=== PATIENT | male | born 1945 | race Caucasian/White ===

== ENCOUNTER 2021-08-30 08:35 | Emergency (ER) | payer MEDICARE, MEDICAID, SELFPAY ==
--- NOTE | ~2021-08-30 | US_ITS ---
EXAMINATION: US venous doppler LE EXAM DATE: 08/30/2021 10:00 INDICATION: Bilateral leg swelling. TECHNIQUE: Multiple grayscale, color flow and Doppler images of the lower extremity deep venous syste ms bilaterally were obtained and reviewed. There is no prior study for comparison. FINDINGS: Right side: The right common femoral, femoral and profunda veins demonstrate normal color flow, respi ratory variation, augmentation and compressibility. Compressibility, color flow confirmed within the right popliteal, posterior tibial, peroneal, and greater saphenous veins. Left side: The left common femoral, femoral and profunda veins demonstrate normal color flow, respira tory variation, augmentation and compressibility. Compressibility, color flow confirmed within the l eft popliteal, posterior tibial, peroneal, and greater saphenous veins. IMPRESSION: 1. No lower extremity deep venous thrombosis bilaterally. Reviewed, dictated and finalized at location A. T MARKETING MANAGER
[2021-08-30 08:45] VITALS: BP 126/61; PULSE 78; RESP 18; TEMP 36.6; O2SAT 97
[2021-08-30 09:39] LABS: Basophils Absolute Auto 0.1 K/mm3 (0.0-0.1); Basophils Percent Auto 0.9 % (0.2-1.2); Eosinophils Absolute Auto 0.7 K/mm3 (0-0.3); Eosinophils Percent Auto 12.5 % (0-4.4); Hematocrit 42.8 % (42.0-52.0); Immature Granulocyte Absolute 0.02 K/mm3 (0.00-0.031); Immature Granulocyte Percent A 0.4 % (0-0.5); Lymphocytes Absolute Auto 1.08 K/mm3 (0.9-3.2); Lymphocytes Percent Auto 19.9 % (18.3-44.2); Mean Corpuscular HGB Conc 32.7 g/dl (32-36); Mean Corpuscular Hemoglobin 30.8 pg (26-34); Mean Corpuscular Volume 94.3 fl (80-100); Monocytes Absolute Auto 0.5 K/mm3 (0.1-0.6); Monocytes Percent Auto 8.3 % (2.6-8.5); Neutrophils Absolute Auto 3.2 K/mm3 (1.3-6.7); Platelet Count Result 217 k/mm3 (150-375); Red Blood Count 4.54 M/mm3 (4.6-6.20); Red Cell Distribution Width 14.9 % (11.5-14.5); White Blood Count 5.4 K/mm3 (4.5-10.0)
[2021-08-30 09:52] LABS: Anion Gap 5 mmol/L (8-16); Blood Urea Nitrogen 17 mg/dL (9-20); Calcium 8.9 mg/dL (8.4-10.2); Carbon Dioxide 32 mmol/L (22-30); Chloride 102 mmol/L (98-107); Estimated CRCL calculation 63 ml/min; Estimated Glomerular Filt Rate > 60; Glucose 100 mg/dL (65-110); Sodium 139 mmol/L (137-145)
[2021-08-30 09:54] LABS: INR 2.1; Prothrombin Time 22.6 Seconds (11.1-14.7)
[2021-08-30 09:55] LABS: Partial Thromboplastin Time 33.7 SECONDS (22.3-36.8)
--- NOTE | 2021-08-30 10:27 | ED.GENADULT ---
HPI - General Adult General Chief complaint: Extremity Problem,Nontraumatic Stated complaint: Bilateral Leg Swelling Time Seen by Provider: 08/30/21 08:42 History of Present Illness HPI narrative: Patient is a 76-year-old male who presents ER with lower extremity edema. Ongoing for last month. Better at night when he puts his legs up. Has history of heart failure. He is on anticoagulation due to is a fibrillation. No chest pain/chest pressure/dyspnea. No hemoptysis. No history of DVT. He was supposed to have outpatient lab work performed today for a upcoming appointment with his PCP in 2 days. They also instructed him to obtain an ultrasound of his legs. Related Data Home Medications Medication Instructions Recorded Confirmed amiodarone 08/30/21 amlodipine 08/30/21 furosemide 08/30/21 gabapentin 08/30/21 pravastatin 08/30/21 umeclidinium [Incruse Ellipta] INHALATION 08/30/21 warfarin 08/30/21 Allergies Allergy/AdvReac Type Severity Reaction Status Date / Time No Known Allergies Allergy Verified 08/30/21 08:48 Review of Systems Review of Systems: All systems reviewed & are unremarkable except as noted in HPI and below Constitutional: Constitutional: Denies chills, Denies fever(s) and Denies weakness ENT: Denies nasal congestion and Denies sore throat Cardiovascular: Cardiovascular: Denies chest pain, Denies rapid heart rate and Denies radiating jaw, neck or arm pain Respiratory: Respiratory: Denies cough, Denies dyspnea and Denies wheezing Gastrointestinal: Gastrointestinal: Denies abdominal pain, Denies nausea and Denies vomiting Musculoskeletal: Musculoskeletal: Denies myalgias and Denies muscle cramps Comments: Leg swelling PMFSH Past Medical History Medical History (Updated 08/30/21 @ 10:33 by David Matute MD) Atrial fibrillation COPD (chronic obstructive pulmonary disease) Neuropathy Surgical History Surgical History (Updated 08/30/21 @ 10:31 by David Matute MD) S/P repair of hydrocele Family History Family History (Updated 03/05/14 @ 07:13 by DOCTOR UNKNOWN) Father Family history of heart disease in male family member before age 55 Social History Social History Smoking status: Never smoker Alcohol intake: current Exam Narrative: GENERAL: Well-appearing, well-nourished, and in no acute distress. HEAD: Normocephalic, atraumatic. ENT: Mucous membranes moist. CHEST: Clear to auscultation. No respiratory distress. HEART: Irregular regular rate and rhythm. Normal peripheral pulses. ABDOMEN: Soft, nontender, nondistended. EXTREMITIES: Normal range of motion. 1+ edema. Chronic venous stasis changes. SKIN: Warm, dry, no rash. NEURO: Alert and oriented x3. PSYCH: Normal mood and affect. Course Course Emergency Course: No evidence of DVT. Follow-up with PCP. Discharge home. Vital Signs Vital signs: Vital Signs Temperature 97.8 F 08/30/21 08:45 Pulse Rate 78 08/30/21 08:45 Respiratory Rate 18 08/30/21 08:45 Blood Pressure 126/61 08/30/21 08:45 Pulse Oximetry 97 08/30/21 08:45 Temperature 97.8 F 08/30/21 08:45 Pulse Rate 78 08/30/21 08:45 Respiratory Rate 18 08/30/21 08:45 Blood Pressure 126/61 08/30/21 08:45 Pulse Oximetry 97 08/30/21 08:45 Medical Decision Making Vital Signs Vital Signs: Vital Signs Temperature 97.8 F 08/30/21 08:45 Pulse Rate 78 08/30/21 08:45 Respiratory Rate 18 08/30/21 08:45 Blood Pressure 126/61 08/30/21 08:45 Pulse Oximetry 97 08/30/21 08:45 Temperature 97.8 F 08/30/21 08:45 Pulse Rate 78 08/30/21 08:45 Respiratory Rate 18 08/30/21 08:45 Blood Pressure 126/61 08/30/21 08:45 Pulse Oximetry 97 08/30/21 08:45 Lab Data Result diagrams: 08/30/21 09:32 08/30/21 09:32 Labs: Lab Results 08/30/21 08/30/21 08/30/21 Range/Units 09:32 09:32 09:32 WBC 5.4 (4.5-10.0) K/mm3 RBC 4.54 L (4.6-6.
== END 2021-08-30 10:48 | disposition home or self-care (01) ==
PROVIDERS: Emergency Provider Emergency Medicine
DX: R60.0 Localized edema (principal); I48.91 Unspecified atrial fibrillation; J44.9 Chronic obstructive pulmonary disease, unspecified; G62.9 Polyneuropathy, unspecified; Z79.01 Long term (current) use of anticoagulants
CPT/HCPCS: 36415; 80048; 85025; 85610; 85730; 93970; 99284

== ENCOUNTER 2021-10-03 09:32 | Emergency (ER) | payer MEDICARE, MEDICAID, SELFPAY ==
[2021-10-03 09:39] VITALS: BP 114/85; PULSE 84; RESP 22; TEMP 36.7; O2SAT 99
--- NOTE | 2021-10-03 09:45 | ED.GENADULT ---
HPI - General Adult General Chief complaint: Extremity Injury, Lower Stated complaint: leg pain Time Seen by Provider: 10/03/21 09:35 Source: patient History of Present Illness HPI narrative: 76-year-old male with hsx of neuropathy presenting to the emergency department for evaluation of left leg pain that has been bothering him for approximately the last 2 weeks. Patient describes left lateral leg pain that radiates down towards his knee. Patient denies any recent falls or injuries. Patient states he called his primary care physician was referred to the emergency department. Patient does take gabapentin for his neuropathy but states this does not help his pain. Patient denies any chest pain or shortness of breath. Related Data Home Medications Medication Instructions Recorded Confirmed amiodarone 08/30/21 amlodipine 08/30/21 furosemide 08/30/21 gabapentin 08/30/21 pravastatin 08/30/21 umeclidinium [Incruse Ellipta] INHALATION 08/30/21 warfarin 08/30/21 Allergies Allergy/AdvReac Type Severity Reaction Status Date / Time No Known Allergies Allergy Verified 10/03/21 09:45 Review of Systems Review of Systems: CONSTITUTIONAL: Denies fever, chills, or sweats. EYES: Denies visual changes, redness, or discharge. ENT: Denies rhinorrhea, congestion, sore throat, or otalgia. CARDIOVASCULAR: Denies chest pain, palpitations, or edema. RESPIRATORY: Denies cough or dyspnea. GASTROINTESTINAL: Denies abdominal pain, nausea, vomiting, or diarrhea. GENITOURINARY: Denies dysuria or hematuria. SKIN: Denies rash or itching. MUSCULOSKELETAL: Left back pain radiating down his left leg NEUROLOGIC: Denies headache, numbness, or weakness. [facility] Past Medical History Medical History (Updated 10/03/21 @ 11:58 by Carlito Osullivan MD) Atrial fibrillation COPD (chronic obstructive pulmonary disease) Neuropathy Surgical History Surgical History (Updated 08/30/21 @ 10:31 by David Matute MD) S/P repair of hydrocele Family History Family History (Updated 03/05/14 @ 07:13 by DOCTOR UNKNOWN) Father Family history of heart disease in male family member before age 55 Social History Social History Smoking status: Never smoker Alcohol intake: current Exam Narrative: APPEARANCE: Well appearing, no pain, no distress, well-nourished. HEAD: normocephalic, atraumatic. EYES: PERRLA/EOMI, conjunctivae clear. NOSE: Normal no drainage NECK: Supple. No adenopathy, no masses. RESPIRATORY: Airway patent, respirations nonlabored. Clear to auscultation bilaterally, no rales, rhonchi, wheezing. CARDIOVASCULAR: Regular rate and rhythm without murmurs rubs or gallops. ABDOMINAL: Soft, nontender, nondistended, normal bowel sounds MUSCULOSKELETAL: Moves all extremities. Strong pedal pulses. No calf tenderness to palpation. No significant erythema. Patient does have chronic changes to the skin of the lower extremities bilaterally. No concern for acute cellulitis. Leg pain induced with palpation of the left buttock NEURO: Alert. Cranial nerves II through XII intact. Grossly intact SKIN: Warm, dry. Normal Color Course Course Emergency Course: Patient did feel improved with treatment. No evidence of underlying infection. Symptoms are consistent with sciatica. Patient felt that his symptoms were improved with a dose of Dilaudid. Patient will be treated with additional narcotic pain medication at home. Patient does take gabapentin. Patient was encouraged to have close follow-up with his primary care physician. Vital Signs Vital signs: Vital Signs Temperature 98.0 F 10/03/21 09:39 Pulse Rate 84 10/03/21 09:39 Respiratory Rate 22 H 10/03/21 09:39 Blood Pressure 114/85 10/03/21 09:39 Pulse Oximetry 99 10/03/21 09:39 Temperature 98.0 F 10/03/21 09:39 Pulse Rate 70 10/03/21 12:56 Respiratory Rate 18 10/03/21 12:56 Blood Pressure 111/81 10/03/21 12:56 Pulse Oximetry 96 10/03/21 12:5
[2021-10-03] MEDS: HYDROmorphone HCL INJ (*CRX) 1 MG/ML SYR 0.5 MG IV PUSH ×2 (09:54→12:38)
[2021-10-03 10:04] LABS: Basophils Absolute Auto 0.1 K/mm3 (0.0-0.1); Basophils Percent Auto 0.7 % (0.2-1.2); Eosinophils Absolute Auto 0.6 K/mm3 (0-0.3); Eosinophils Percent Auto 9.1 % (0-4.4); Hematocrit 39.8 % (42.0-52.0); Hemoglobin 12.8 g/dL (14.0-18.0); Immature Granulocyte Absolute 0.02 K/mm3 (0.00-0.031); Immature Granulocyte Percent A 0.3 % (0-0.5); Lymphocytes Absolute Auto 1.57 K/mm3 (0.9-3.2); Lymphocytes Percent Auto 23.5 % (18.3-44.2); Mean Corpuscular HGB Conc 32.2 g/dl (32-36); Mean Corpuscular Hemoglobin 30.5 pg (26-34); Mean Corpuscular Volume 94.8 fl (80-100); Mean Platelet Volume 9.9 fl (7.4-10.4); Monocytes Absolute Auto 0.5 K/mm3 (0.1-0.6); Monocytes Percent Auto 6.9 % (2.6-8.5); Neutrophils Percent Auto 59.5 % (45.5-73.1); Platelet Count Result 265 k/mm3 (150-375); Red Cell Distribution Width 14.9 % (11.5-14.5); White Blood Count 6.7 K/mm3 (4.5-10.0)
[2021-10-03 10:17] LABS: Alanine Aminotransferase 14 U/L (4-50); Albumin Level 3.9 g/dL (3.5-5.1); Alkaline Phosphatase 67 U/L (38-126); Anion Gap 5 mmol/L (8-16); Aspartate Amino Transferase 26 U/L (17-59); Bilirubin,Total 0.9 mg/dL (0.2-1.3); Blood Urea Nitrogen 16 mg/dL (9-20); Calcium 8.4 mg/dL (8.4-10.2); Carbon Dioxide 31 mmol/L (22-30); Chloride 102 mmol/L (98-107); Estimated CRCL calculation 69 ml/min; Estimated Glomerular Filt Rate > 60; Glucose 107 mg/dL (65-110); Potassium 3.9 mmol/L (3.4-5.0); Sodium 138 mmol/L (137-145)
[2021-10-03 10:58] VITALS: BP 115/74; PULSE 64; RESP 15; O2SAT 97
[2021-10-03] MEDS: HYDROcodone/acetaminophen (*CRX) 5-325 MG TABLET 1 TAB PO (11:54)
--- NOTE | 2021-10-03 12:20 | PC.NURSE ---
PT REPORT PAIN INCREASING, ERP NOTIFIED
--- NOTE | 2021-10-03 12:39 | PCCCNOTE ---
Phone call received at patient request for transportation back to [facility]. Asked if there is anyone that can pick him up but he says no, he can only afford the bus which takes him way far out and it is difficult. Advised that this respiratory care faculty would call [facility] to see if they have a van or transport. Called to [facility] at [phone] left message with site director for a return call.
[2021-10-03 12:56] VITALS: BP 111/81; PULSE 70; RESP 18; O2SAT 96
== END 2021-10-03 13:15 ==
PROVIDERS: Emergency Provider Emergency Medicine
DX: M79.605 Pain in left leg (principal); I48.91 Unspecified atrial fibrillation; J44.9 Chronic obstructive pulmonary disease, unspecified; G62.9 Polyneuropathy, unspecified; Z79.01 Long term (current) use of anticoagulants
CPT/HCPCS: 36415; 80053; 85025; 96374; 96375; 99284; A9270; J1170

== ENCOUNTER 2021-10-10 08:31 | Emergency (ER) | payer MEDICARE, MEDICAID, SELFPAY ==
[2021-10-10 08:37] VITALS: BP 140/74; PULSE 87; RESP 15; TEMP 36.4; O2SAT 97
--- NOTE | 2021-10-10 09:16 | ED.BACK ---
HPI - Back Pain/Injury General Chief Complaint: Back Pain/Injury <Cecilia Butts PA-C - Last Filed: 10/10/21 18:43> Stated Complaint: sciatic nerve pain <Cecilia Butts PA-C - Last Filed: 10/10/21 18:43> Time Seen by Provider: 10/10/21 08:53 <NION Roberson Last Filed: 10/10/21 18:43> Source: patient <NINO Roberson Last Filed: 10/10/21 18:43> Mode of arrival: ambulatory <NINO Roberson Last Filed: 10/10/21 18:43> Limitations: no limitations <NINO Roberson Last Filed: 10/10/21 18:43> History of Present Illness HPI Narrative: Patient is a 76-year-old male who presents to the ED with report of left lower extremity pain. Patient reports this pain has been present for the past 3 weeks, begins in L buttock and radiates down LLE to his knee. He was seen at the ED last Sunday at which point his pain was consistent with left-sided sciatica. He was prescribed Raiford for his pain which has provided much relief over the past week. Patient is unable to see his PCP until of this week. He is requesting additional Raiford to get him by until he can see his doctor. Patient states the pain is worse with laying flat. He is able to ambulate still. Patient denies any constipation, bowel or bladder incontinence, saddle anesthesia, weakness, abdominal pain, fever, chills, CP, SOB, N/V, new falls or injuries. Patient does have a history of neuropathy and takes gabapentin for this. Patient is on warfarin and amiodarone due to his history of atrial fibrillation. He has his INR checked every 2 weeks and is scheduled to have this checked again . <Cecilia Butts PA-C - Last Filed: 10/10/21 18:43> Related Data Home Medications: Home Medications Medication Instructions Recorded Confirmed amiodarone 08/30/21 amlodipine 08/30/21 furosemide 08/30/21 gabapentin 08/30/21 pravastatin 08/30/21 umeclidinium [Incruse Ellipta] INHALATION 08/30/21 warfarin 08/30/21 <Cecilia Butts PA-C - Last Filed: 10/10/21 18:43> Allergies/Adverse Reactions: Allergies Allergy/AdvReac Type Severity Reaction Status Date / Time No Known Allergies Allergy Verified 10/10/21 08:36 <Cecilia Butts PA-C - Last Filed: 10/10/21 18:43> Review of Systems Review of Systems: CONSTITUTIONAL: Denies fever, chills, or sweats. CARDIOVASCULAR: Denies chest pain. RESPIRATORY: Denies dyspnea. GASTROINTESTINAL: Denies constipation, incontinence, abdominal pain, nausea, vomiting, or diarrhea. GENITOURINARY: Denies incontinence, dysuria or hematuria. SKIN: Denies rash or itching. MUSCULOSKELETAL: Reports L buttock/LLE pain. NEUROLOGIC: Denies numbness, tingling, or weakness. <Cecilia Butts PA-C - Last Filed: 10/10/21 18:43> All systems reviewed & are unremarkable except as noted in HPI and below <Cecilia Butts PA-C - Last Filed: 10/10/21 18:43> [facility] Past Medical History Medical History: Medical History Atrial fibrillation COPD (chronic obstructive pulmonary disease) Neuropathy <Cecilia Butts PA-C - Last Filed: 10/10/21 18:43> Surgical History Surgical History: Surgical History S/P repair of hydrocele <Cecilia Butts PA-C - Last Filed: 10/10/21 18:43> Family History Family History: Family History (Updated 03/05/14 @ 07:13 by DOCTOR UNKNOWN) Father Family history of heart disease in male family member before age 55 <Cecilia Butts PA-C - Last Filed: 10/10/21 18:43> Social History Social History: Social History Smoking status: Never smoker Alcohol intake: current <Cecilia Butts PA-C - Last Filed: 10/10/21 18:43> Exam Narrative: GENERAL: Well appearing, obese, non-toxic, in no acute distress. HEAD: Normocephalic, atraumatic. NECK: Supple. No adenopa
[2021-10-10] MEDS: HYDROcodone/acetaminophen (*CRX) 5-325 MG TABLET 1 TAB PO (09:50)
--- NOTE | 2021-10-10 10:48 | PC.NURSE ---
Spoke with PA about dilaudid order, verbal order to change medication admin to Im from IV
[2021-10-10] MEDS: HYDROmorphone HCL INJ (*CRX) 1 MG/ML SYR 0.5 MG IM (10:49)
[2021-10-10 11:30] VITALS: BP 138/78; PULSE 75; RESP 17; O2SAT 100
== END 2021-10-10 11:30 | disposition home or self-care (01) ==
PROVIDERS: Emergency Provider Emergency Medicine
DX: M54.32 Sciatica, left side (principal); I48.91 Unspecified atrial fibrillation; J44.9 Chronic obstructive pulmonary disease, unspecified; G62.9 Polyneuropathy, unspecified; Z79.01 Long term (current) use of anticoagulants; Z79.899 Other long term (current) drug therapy
CPT/HCPCS: 96372; 99283; A9270; J1170

== ENCOUNTER 2022-04-27 11:21 | Inpatient (IN) | payer MEDICARE, MEDICAID, SELFPAY ==
[2022-04-27] VITALS (59 sets, daily range): BP systolic 79–135; BP diastolic 50–91; PULSE 66–126; RESP 16–35; TEMP 36.9–37.7; O2SAT 88–97; BMI 38.1
--- NOTE | 2022-04-27 | ECHO_ITS ---
Patient Info Name: Martínez Martinez Age: 77 years : 1945 Gender: Male Ht: 67 in Wt: 229 lbs BSA: 2.26 m2 HR: 83 bpm BP: 94 / 69 mmHg Heart Rhythm: Atrial Fibrillation Exam Date: 04/27/2022 3:10 PM Exam Location: [facility] Patient Status: Inpatient Admit Date: 04/27/2022 Staff Ordering Physician: Elia Chatman MD Factory Hand: Lopez Todd RDCS, RT Attending Provider: Adrian Arias MD Referring Physician: Lurdes CANAS; Exam Type: CA echo doppler color flow Study Info Indications I48.1 - Persistent atrial fibrillation - COPD I50.9 - Heart failure, unspecified Complete two-dimensional, color flow and Doppler transthoracic echocardiogram is performed with contrast to opacify the left ventricle and to improve the deliniation of the left ventricle endocardial borders. Contrast/Agitated Saline Contrast/Ag. Saline: Definity Amount: 4.00 ml Administered By: Lopez Todd RDCS Existing IV Access: Yes IV Access Condition: patent with no signs of infiltration Summary 1. Technically challenging exam. Definity contrast used to improve visualization. 2. Mild left ventricular systolic dysfunction with estimated ejection fraction 40-45%. 3. Severe right ventricular enlargement with RV systolic dysfunction. 4. Biatrial dilation. 5. Tricuspid regurgitant velocity suggesting pulmonary artery pressures are severely elevated. 6. Atrial fibrillation. Left Ventricular Outflow Tract Name Value Normal LVOT 2D LVOT Diameter 2.1 cm LVOT Doppler LVOT Peak Gradient 2 mmHg LVOT Mean Gradient 1 mmHg LVOT VTI 11 cm LVOT VTI/AV VTI Ratio 0.7 LVOT Stroke Volume 40 ml LVOT CO 3.2 l/min LVOT CI 1.4 l/min/m2 Mitral Valve Name Value Normal MV Doppler MV Decel [place] 435 cm/s2 MV PHT 46 ms MV Area (PHT) 4.8 cm2 4.0-5.0 MV Diastolic Function MV E Peak Velocity 69 cm/s MV A Peak Velocity 32 cm/s MV E/A 2.2 MV Decel Time 158 ms MV Annular TDI MV E/e' (Septal) 11.4 <=8.0 MV E/e' (Lateral) 9.9 <=8.0 MV E/e' (Average) 10.7 Tricuspid Valve Name Value Normal
--- NOTE | ~2022-04-27 | XR_ITS ---
EXAMINATION: XR chest 1V portable DATE: 05/02/2022 05:40 INDICATION: Central line adjustment. TECHNIQUE: A single frontal view of the chest was obtained. COMPARISON: Chest single view 05/01/2022, chest CT 04/30/2022 FINDINGS: There are small right and moderate-sized left pleural effusions. There are airspace opaciti es in the mid and lower lung zones with a basilar predominance. No pneumothorax. Cardiomegaly is note d. The endotracheal tube tip is 1.8 cm above the juan m. The nasogastric tube tip is in the stomach. A left upper extremity peripherally inserted central venous catheter (PICC) is seen with tip in the s uperior vena cava. IMPRESSION: 1. PICC tip in the superior vena cava. 2. Stable small right and moderate-sized left pleural effusions. 3. Stable airspace opacities in the mid and lower lung zones with a basilar predominance, consistent with atelectasis versus pneumonia. 4. Cardiomegaly. Reviewed, dictated and finalized at location A. IMPRESSION: 1. PICC tip in the superior vena cava. 2. Stable small right and moderate-sized left pleural effusions. 3. Stable airspace opacities in the mid and lower lung zones with a basilar pre dominance, consistent with atelectasis versus pneumonia. 4. Cardiomegaly.
--- NOTE | ~2022-04-27 | XR_ITS ---
EXAMINATION: XR chest 1V portable DATE: 05/05/2022 05:57 INDICATION: Acute respiratory failure TECHNIQUE: frontal view of the chest was obtained. COMPARISON: Chest radiograph dated 05/04/2022 FINDINGS: No significant change in opacities in bilateral mid and lower lung zones which includes small bilater al pleural effusions. No pneumothorax. Cardiomegaly. IMPRESSION: 1. Unchanged small bilateral pleural effusions with associated atelectasis and/or pneumonia. 2. Cardiomegaly. Reviewed, dictated and finalized at location A. IMPRESSION: 1. Unchanged small bilateral pleural effusions with associated atelectasis and/ or pneumonia. 2. Cardiomegaly.
--- NOTE | ~2022-04-27 | XR_ITS ---
XR chest 1V portable DATE: 05/12/2022 19:11 INDICATION: Sudden decrease in oxygenation TECHNIQUE: Portable AP chest on 05/2022 at 1907 hours COMPARISON: 05/2022 portable AP chest at 0517 hours FINDINGS: ET tube in satisfactory position 3.2 cm above juan m. NG tube is noted in the stomach. Left upper extremity PIC catheter tip overlies superior vena cava. Cardiomegaly. Pulmonary vascular congestion and redistribution. There are extensive bilateral infiltr ates which are more prominent centrally and in the lower lung zones, increased in severity since martina ier today at 0517 hours. Prominent minor fissure consistent with subpleural edema. Probable bilateral mild pleural effusions. No pneumothorax. Diffuse osteopenia. IMPRESSION: Cardiomegaly, pulmonary vascular congestion, bilateral predominantly central and lower rohan ng zone infiltrates, pleural effusions, also minor fissure, consistent with congestive heart failure, pulmonary edema, increased in severity since this morning Reviewed, dictated and finalized at location A. IMPRESSION: Cardiomegaly, pulmonary vascular congestion, bilateral predominantl y central and lower lung zone infiltrates, pleural effusions, also minor fissur e, consistent with congestive heart failure, pulmonary edema, increased in linda rity since this morning
--- NOTE | ~2022-04-27 | XR_ITS ---
EXAMINATION: XR chest 1V portable DATE: 05/04/2022 05:35 INDICATION: Acute respiratory failure TECHNIQUE: frontal view of the chest was obtained. COMPARISON: Chest radiograph dated 05/03/2022 FINDINGS: Endotracheal tube tip 4.0 cm above the juan m. Nasogastric tube tip in proximal side port in the body of the stomach. Left upper extremity peripherally inserted central venous catheter (PICC) tip at th e mid superior vena cava. Basilar predominant hazy airspace opacities in the bilateral mid and lower lung zones consistent with posterior layering small bilateral pleural effusions. Dense retrocardiac consolidation at the left l ower lung zone. No pneumothorax. Cardiomegaly. IMPRESSION: 1. Retrocardiac consolidation at the left lower lung zone which could represent atelectasis or pneumo mily. 2. Posterior layering small bilateral pleural effusions. 3. Cardiomegaly. Reviewed, dictated and finalized at location A. IMPRESSION: 1. Retrocardiac consolidation at the left lower lung zone which could represent atelectasis or pneumonia. 2. Posterior layering small bilateral pleural effusions. 3. Cardiomegaly.
--- NOTE | ~2022-04-27 | XR_ITS ---
EXAMINATION: XR chest 1V portable DATE: 05/10/2022 05:45 INDICATION: Respiratory failure. TECHNIQUE: A single frontal view of the chest was obtained. COMPARISON: Chest single view 05/09/2022, chest CT 05/08/2022 FINDINGS: There are small pleural effusions. There are airspace opacities in all right lung zones and left mid and lower lung zones. No pneumothorax. Cardiomegaly is noted. The endotracheal tube tip is 1.9 cm above the juan m. A left upper extremity peripherally inserted central venous catheter (PICC) is seen with tip in the superior vena cava. The nasogastric tube tip is beyond the inferior margin of the radiograph, but at least to the stomach. IMPRESSION: 1. Stable small pleural effusions. 2. Stable airspace opacities in right lung and left mid and lower lung zones, consistent with atelect asis versus pneumonia. 3. Cardiomegaly. Reviewed, dictated and finalized at location A. IMPRESSION: 1. Stable small pleural effusions. 2. Stable airspace opacities in right lung and left mid and lower lung zones, c onsistent with atelectasis versus pneumonia. 3. Cardiomegaly.
--- NOTE | ~2022-04-27 | XR_ITS ---
XR chest 1V portable DATE: 05/13/2022 06:27 INDICATION: Respiratory failure TECHNIQUE: Portable AP chest on 05/13/2022 at 0517 hours COMPARISON: 05/2022 portable AP chest at 1907 hours FINDINGS: ET tube tip is 5.8 cm above juan m; ideal range is 2 out of 5 cm. NG tube is in gastric fundus. Left upper extremity PIC catheter tip overlies superior vena cava. Prominent left retrocardiac increased density consistent with left lower lobe atelectasis and/or cons olidation. There is patchy infiltrate or atelectasis in the right lower lung. Cardiac megaly and pulmonary vascular redistribution. Small pleural effusions are suggested. Diffuse osteopenia. Dextroscoliosis and degenerative spurring of the thoracic spine. IMPRESSION: Persistent prominent left lower lobe atelectasis and/or consolidation Diminished congestive changes and right lung infiltrates since 05/2022 Reviewed, dictated and finalized at location A. IMPRESSION: Persistent prominent left lower lobe atelectasis and/or consolidati on Diminished congestive changes and right lung infiltrates since 05/2022
--- NOTE | ~2022-04-27 | CT_ITS ---
EXAMINATION: CT chest abdomen pelvis wo con DATE: 05/08/2022 08:58 INDICATION: Fever. Sepsis. Hemoptysis. TECHNIQUE: Computed tomography (CT) of the chest, abdomen, and pelvis was performed without intraveno us contrast. Automated exposure control and iterative reconstruction technique were employed. The dos e-length product was 1881.87 mGy-cm. COMPARISON: Chest CT 04/30/2022 FINDINGS: CHEST CT: There are small pleural effusions. There is dependent atelectasis bilaterally. A calcified right lung nodule is consistent with old granulomatous disease. Cardiomegaly is noted. No pericardial effusion. The endotracheal tube tip is in expected position. A left upper extremity peripherally inserted cent ral venous catheter (PICC) is seen with tip in the superior vena cava. There is mild thoracic spondyl osis. ABDOMEN/PELVIS CT: The liver and spleen are normal. There is contrast in the gallbladder, which is normal in size. The p ancreas, adrenal glands, and left kidney are normal. There are cysts in right kidney measuring up to 11 mm. There is a left inguinal hernia containing fat. The bladder is decompressed by a Nichole cathete r. The prostate is moderately enlarged. There is diverticulosis of the colon without evidence of dive rticulitis. Ascending, transverse, and descending colon are distended. The sigmoid colon is small in caliber, which may or may not be transient. The appendix is not visualized. There is a small volume o f ascites. The nasogastric tube tip is in the stomach. There are no pathologically enlarged lymph nod es. Body wall edema is noted. There is severe lumbar spondylosis. IMPRESSION: 1. Distention of the ascending, transverse, and descending colon, which may be secondary to adynamic ileus or sigmoid colon stricture. 2. Left inguinal hernia containing fat. 3. Small pleural effusions. Reviewed, dictated and finalized at location A.
--- NOTE | ~2022-04-27 | XR_ITS ---
XR chest 1V portable 05/06/2022 05:46 Indication: Acute respiratory failure Procedure: AP portable chest Comparison: Comparison to multiple prior studies sequentially, with oldest reviewed study dated 04/09. Findings: Endotracheal tube tip 3.9 cm above the juan m. Tip of the NG tube not visualized, likely in the stomach. Diffuse bilateral airspace disease unchanged. Small pleural effusions. No pneumothorax. Cardiomegaly. Impression: 1: Diffuse bilateral airspace disease unchanged, edema versus pneumonia. Reviewed, dictated and finalized at location A. Impression: 1: Diffuse bilateral airspace disease unchanged, edema versus pneumonia.
--- NOTE | ~2022-04-27 | CT_ITS ---
EXAMINATION: CTA chest PE protocol DATE: 05/01/2022 09:52 CDT INDICATION: Hypoxemia. Right heart failure. Hypotension. TECHNIQUE: Computed tomographic angiography (CTA) of the chest was performed with 100 mL Omnipaque-35 0 intravenous contrast. The dose-length product was 917.08 mGy-cm. Maximum intensity projection 3D-re constructions of the aorta and other arteries were constructed by the technologist on a separate work station. COMPARISON: None. FINDINGS: There is mediastinal lymphadenopathy. Small pleural effusions. Cardiomegaly. Study is techn ically adequate without evidence for pulmonary embolism. No endobronchial lesions. There is bilateral dependent airspace consolidation which may represent atelectasis and/or pneumonia. There is an endot rachele tube present just above the juan m. There is emphysema. No pneumothorax. Moderate thoracic sp ondylosis. There is mild dextroscoliosis. IMPRESSION: 1. Bilateral dependent airspace consolidation which may represent atelectasis and/or pneumonia. 2: No evidence for pulmonary embolism. 3: Small pleural effusions. 4: Cardiomegaly. 5: Mediastinal lymphadenopathy, likely reactive. Reviewed, dictated and finalized at location B. IMPRESSION: 1. Bilateral dependent airspace consolidation which may represent atelectasis a nd/or pneumonia. 2: No evidence for pulmonary embolism. 3: Small pleural effusions. 4: Cardiomegaly. 5: Mediastinal lymphadenopathy, likely reactive.
--- NOTE | ~2022-04-27 | XR_ITS ---
EXAMINATION: XR chest 1V portable DATE: 05/16/2022 06:15 INDICATION: Respiratory failure TECHNIQUE: frontal view of the chest was obtained. COMPARISON: Chest radiograph dated 05/15/2022 FINDINGS: Endotracheal tube tip 4.3 cm above the juan m. Nasogastric tube coiled in the stomach. Left upper ext remity peripherally inserted central venous catheter (PICC) tip at the cephalad superior vena cava. Slight interval increase in opacities in the left mid to lower lung zone and at the right lung base w ith blunting at costophrenic angles consistent with small right and [id number] left pleural ef fusions and associated atelectasis and/or pneumonia. No pneumothorax. Cardiomegaly. IMPRESSION: 1. Slight interval progression in small right and [id number] left pleural effusions with assoc iated atelectasis and/or pneumonia. 2. Cardiomegaly. Reviewed, dictated and finalized at location A. TENING MACHINE OPERATOR IMPRESSION: 1. Slight interval progression in small right and [id number]-[id number] left pleura l effusions with associated atelectasis and/or pneumonia. 2. Cardiomegaly.
--- NOTE | ~2022-04-27 | XR_ITS ---
EXAMINATION: XR chest 1V portable DATE: 04/30/2022 05:36 INDICATION: Respiratory failure TECHNIQUE: None. COMPARISON: 04/29/2022 FINDINGS: Endotracheal tube tip 2.2 cm above the juan m. Nasogastric tube tip in the stomach. Gradient of hazy basilar predominant opacities in the right lower and left mid to lower lung zones wh ich appear slightly decreased consistent with improving small bilateral pleural effusions. More dense retrocardiac consolidation at the left lower lung zone which could represent associated atelectasis or pneumonia. No pulmonary edema or pneumothorax. Cardiomegaly. IMPRESSION: 1. Slight decrease in small bilateral pleural effusions with associated left basilar atelectasis and/ or pneumonia. 2. Cardiomegaly. Reviewed, dictated and finalized at location A. IMPRESSION: 1. Slight decrease in small bilateral pleural effusions with associated left ba silar atelectasis and/or pneumonia. 2. Cardiomegaly.
--- NOTE | ~2022-04-27 | XR_ITS ---
EXAMINATION: XR chest 1V portable INDICATION: Shortness of breath and hemoptysis TECHNIQUE: Portable AP chest at 1141 hours COMPARISON: None available FINDINGS: There are patchy opacities throughout the lungs. No definite pleural effusion or pneumothor ax. The costophrenic angles are excluded from the examination. Cardiomegaly is noted. IMPRESSION: 1. Diffuse opacities throughout the lungs, consistent with pneumonia versus atelectasis versus pulmon sujata edema. Reviewed, dictated and finalized at location B. IMPRESSION: 1. Diffuse opacities throughout the lungs, consistent with pneumonia versus ate lectasis versus pulmonary edema.
--- NOTE | ~2022-04-27 | XR_ITS ---
EXAMINATION: XR chest 1V portable DATE: 05/01/2022 05:50 INDICATION: Respiratory failure TECHNIQUE: frontal view of the chest was obtained. COMPARISON: Chest radiograph dated 04/30/2022 FINDINGS: Endotracheal tube tip 2.3 cm above the juan m. Nasogastric tube extends into the stomach with distal tip collimated beyond the inferior margin of the [id number]. Increase in the gradient of basilar predominant hazy airspace opacities in the bilateral mid and lowe r lung zones consistent with bilateral posterior layering small to moderate-sized pleural effusions. Retrocardiac consolidation in the left lower lung zone which could represent associated atelectasis o r pneumonia. The cardiomediastinal silhouette is normal. IMPRESSION: 1. Increasing small to moderate-sized bilateral pleural effusions with associated basilar atelectasis and/or pneumonia. Reviewed, dictated and finalized at location A. IMPRESSION: 1. Increasing small to moderate-sized bilateral pleural effusions with associat ed basilar atelectasis and/or pneumonia.
--- NOTE | ~2022-04-27 | XR_ITS ---
EXAMINATION: XR abdomen NG/feed tube rechec DATE: 05/11/2022 14:42 INDICATION: Nasogastric tube adjustment TECHNIQUE: A supine view of the abdomen and lower chest was obtained for evaluation of feeding tube placement. COMPARISON: 05/11/2022 at 2:22 PM FINDINGS: Nasogastric tube tip in proximal side port in the body of the stomach. Endotracheal tube tip 5.6 cm a joy the juan m. Left upper extremity peripherally inserted central venous catheter (PICC) tip at th e cephalad superior vena cava. Dense retrocardiac consolidation the left mid to lower lung zone consi stent with small left pleural effusion and associated atelectasis or pneumonia. There is also a very small right pleural effusion. Cardiomegaly. IMPRESSION: 1. Nasogastric tube in stomach. 2. Endotracheal tube 5.6 cm above the juan m. Consider advancement by 3 cm. 3. Opacities in the left mid to lower lung zone consistent with small pleural effusion and associated atelectasis or pneumonia. 4. Very small right pleural effusion. Reviewed, dictated and finalized at location B. IMPRESSION: 1. Nasogastric tube in stomach. 2. Endotracheal tube 5.6 cm above the juan m. Consider advancement by 3 cm. 3. Opacities in the left mid to lower lung zone consistent with small pleural e ffusion and associated atelectasis or pneumonia. 4. Very small right pleural effusion.
--- NOTE | ~2022-04-27 | XR_ITS ---
XR chest 1V portable 05/07/2022 05:47 Indication: Acute respiratory failure Procedure: AP portable chest Comparison: Comparison to multiple prior studies sequentially, with oldest reviewed study dated 04/09. Findings: Cardiomegaly. Small pleural effusions. Bibasilar airspace disease may represent atelectasis or pneumonia. Endotracheal tube tip 3.4 cm above the juan m. NG tube in the stomach. PICC line tip i n the SVC. Impression: 1: Bibasilar airspace disease may represent atelectasis or pneumonia. 2: Small pleural effusions. Reviewed, dictated and finalized at location A. Impression: 1: Bibasilar airspace disease may represent atelectasis or pneumonia. 2: Small pleural effusions.
--- NOTE | ~2022-04-27 | XR_ITS ---
EXAMINATION: XR chest 1V portable DATE: 05/01/2022 15:31 INDICATION: PICC line repositioning TECHNIQUE: frontal views of the chest were obtained following the initial and repeat slight withdrawa l of the left approximately PICC line. COMPARISON: Chest radiograph dated 05/01/2022 at 12:52 PM FINDINGS: Patient is rotated towards the left. Endotracheal tube tip 2.1 cm above the juan m. Nasogastric tube extends below the left hemidiaphragm with distal tip collimated off the study. On the initial image the distal tip of the left upper extremity peripherally inserted central venous catheter (PICC) monica nues to extend from the superior vena cava into short distance into the azygos vein. Subsequent image demonstrates withdrawal of the catheter within the distal tip now ankle more caudally within the cep halad superior vena cava. On both images there is a gradient of hazy basilar predominant airspace opacities in bilateral mid an d lower lung zones with obscuration of the diaphragm consistent with small to moderate-sized posterio r layering pleural effusions and associated basilar atelectasis and/or pneumonia. No pneumothorax. Ca rdiomegaly. Visualized bones and soft tissues are unremarkable. IMPRESSION: 1. Left PICC line has been withdrawn slightly with distal tip previously in the azygos vein, now in t he superior vena cava. 2. Unchanged small to moderate-sized bilateral pleural effusions with associated bibasilar atelectasi s and/or pneumonia. Reviewed, dictated and finalized at location A. IMPRESSION: 1. Left PICC line has been withdrawn slightly with distal tip previously in the azygos vein, now in the superior vena cava. 2. Unchanged small to moderate-sized bilateral pleural effusions with associate d bibasilar atelectasis and/or pneumonia.
--- NOTE | ~2022-04-27 | CT_ITS ---
EXAMINATION: CT sinus wo con DATE: 05/08/2022 08:57 INDICATION: Fever, sepsis, pneumonia, hemoptysis TECHNIQUE: Computed tomography (CT) of the paranasal sinuses was performed without contrast. Iterativ e reconstruction technique was employed. Exam dose: 337.11 mGy-cm total exam DLP. COMPARISON: None FINDINGS: There is leftward deviation of the nasal septum. The nasal turbinates are moderately promin ent relatively symmetric in size. Intralamellar cell of both middle nasal turbinates. The ostiomeatal units are patent bilaterally. The paranasal sinuses are normally developed and aerated. There is minimal mucoperiosteal thickening in the lower left maxillary sinus. The mastoid air cells are well-developed and aerated. ET and NG tubes are noted. IMPRESSION: Leftward deviation of nasal septum Intralamellar cell of middle nasal turbinates Minimal mucoperiosteal thickening inferior left maxillary sinus Reviewed, dictated and finalized at Location [facility]. Reviewed, dictated and finalized at location A.
--- NOTE | ~2022-04-27 | XR_ITS ---
EXAMINATION: XR abdomen obstructive series DATE: 05/10/2022 09:54 INDICATION: Abdominal distention TECHNIQUE: Frontal supine and upright views of the abdomen were obtained. COMPARISON: CT dated 05/08/2022 FINDINGS: Nasogastric tube tip in the body of the stomach. Persistent prominent gaseous distention of the trans verse colon. Gas within a few normal caliber loops of small bowel in the pelvis. No dilated gas-fille d loops of small bowel. No free intraperitoneal gas. Temperature probe in the bladder likely along a Nichole catheter. Prominent prostatic calcifications. Endotracheal tube tip 3.8 cm above the juan m. Dense consolidation in the left lower lung zone. IMPRESSION: 1. No free intraperitoneal gas or dilated gas-filled loops of small bowel to suggest obstruction. 2. Persistent prominent distention of portions of the colon which could be due to adynamic ileus, con stipation or sigmoid colon stricture. 3. Opacities in the bilateral lower lung zones, left greater than right, consistent with small pleura l effusions, atelectasis, pneumonia or some combination thereof. Reviewed, dictated and finalized at location B. IMPRESSION: 1. No free intraperitoneal gas or dilated gas-filled loops of small bowel to s uggest obstruction. 2. Persistent prominent distention of portions of the colon which could be due to adynamic ileus, constipation or sigmoid colon stricture. 3. Opacities in the bilateral lower lung zones, left greater than right, consis tent with small pleural effusions, atelectasis, pneumonia or some combination t hereof.
--- NOTE | ~2022-04-27 | XR_ITS ---
EXAMINATION: XR chest 1V portable DATE: 05/09/2022 05:53 INDICATION: Respiratory failure. TECHNIQUE: A single frontal view of the chest was obtained. COMPARISON: Chest one view 05/08/2022, chest CT 05/08/2022 FINDINGS: There are small pleural effusions. There are airspace opacities in the mid and lower lung z ones with a basilar predominance. No pneumothorax. Cardiomegaly is noted. The endotracheal tube tip i s 4.4 cm above the juan m. The nasogastric tube tip is beyond the inferior margin of the radiograph, but at least to the stomach. A left upper extremity peripherally inserted central venous catheter (PI CC) is seen with tip in the superior vena cava. IMPRESSION: 1. Stable small pleural effusions. 2. Stable airspace opacities in the mid and lower lung zones, consistent with atelectasis or less lik chris pneumonia. 3. Cardiomegaly. Reviewed, dictated and finalized at location A. IMPRESSION: 1. Stable small pleural effusions. 2. Stable airspace opacities in the mid and lower lung zones, consistent with a telectasis or less likely pneumonia. 3. Cardiomegaly.
--- NOTE | ~2022-04-27 | CT_ITS ---
EXAMINATION: CT chest abdomen pelvis wo con DATE: 05/11/2022 11:40 INDICATION: Abdominal distention. Pneumonia. TECHNIQUE: Computed tomography (CT) of the chest, abdomen, and pelvis was without intravenous contras t. Automated exposure control and iterative reconstruction technique were employed. The dose-length p roduct was 1869.29 mGy-cm. COMPARISON: 05/08/2022 FINDINGS: CHEST CT: Endotracheal tube tip 4.5 cm above the juan m. Nasogastric tube tip in the stomach. Left upper extrem ity peripherally inserted central venous catheter (PICC) tip in the mid superior vena cava at the lev el of the juan m. Calcified right upper lobe nodule and a few small calcified nodules in the atelectatic portions of th e bilateral lower lobes along with small calcified right hilar lymph nodes, all consistent with old g ranulomatous disease. Small bilateral pleural effusions. 8 mm groundglass opacity in the right middle lobe which appears thin and linear on the sagittal and coronal projections consistent with discoid a telectasis. No definitive pneumonia appreciated although this could not be excluded in the atelectati c portions of the bilateral lower lobes. Cardiomegaly. Atherosclerotic coronary artery calcification. No pericardial effusion. No pathologically enlarged thoracic lymphadenopathy. Mild thoracic spondylo sis with bridging osteophytes at multiple levels consistent with diffuse idiopathic skeletal hyperost osis (DISH). ABDOMEN/PELVIS CT: Again seen is vicariously excreted contrast in the otherwise normal-appearing gallbladder. Small cyst at the caudal tip of the right hepatic lobe. Spleen, left kidney and bilateral adrenal glands are no rmal. Right renal cyst. Mild to moderate fatty atrophy of the pancreas. Again seen is distention of t he ascending and transverse colon which tapers to normal caliber in the descending colon with moderat e amount of stool scattered throughout the more distal sigmoid colon. No discrete transition point or evident obstructing mass or stricture. There is mild colonic diverticulosis with a sigmoid predomina nce. There is no adjacent inflammatory change to suggest diverticulitis. Small bowel is normal in ca liber with no obstruction. Small to moderate amount of ascites scattered throughout the abdomen and p jeovany. Small amount of ascites along with fat extends into a moderate-sized direct left inguinal elin ia. Prostatomegaly with left-sided predominant prostatic calcifications. Nichole catheter within the no rmal bladder. No abscess or free intraperitoneal gas. No pathologically enlarged abdominal or pelvic lymphadenopathy. Severe lumbar spondylosis. IMPRESSION: 1. Small bilateral pleural effusions with dependent compressive atelectasis in the bilateral lower lo bes. No pneumonia appreciated although superimposed pneumonia cannot be excluded in the atelectatic p ortions of the lower lobes. 2. Cardiomegaly. 3. Small to moderate amount of ascites scattered throughout the abdomen and pelvis. 4. Persistent distention of the ascending and transverse colon without evident transition point or ob structing mass most likely related to ileus. 5. Small to moderate amount of ascites in the abdomen and pelvis including extension of some ascites along with fat pad moderate-sized direct left inguinal hernia. Reviewed, dictated and finalized at location B. IMPRESSION: 1. Small bilateral pleural effusions with dependent compressive atelectasis in the bilateral lower lobes. No pneumonia appreciated although superimposed pneum onia cannot be excluded in the atelectatic portions of the lower lobes. 2. Cardiomegaly. 3. Small to moderate amount of ascites scattered throughout the abdomen and pel vis. 4. Persistent distention of the ascending and transverse colon wit
--- NOTE | ~2022-04-27 | XR_ITS ---
EXAMINATION: XR chest 1V portable DATE: 05/11/2022 06:16 INDICATION: Respiratory failure. TECHNIQUE: A single frontal view of the chest was obtained. COMPARISON: Chest single view 05/10/2022 FINDINGS: There are airspace opacities in the mid and lower lung zones. There are small pleural effus ions. No pneumothorax. Cardiomegaly is noted. The endotracheal tube tip is 4.2 cm above the juan m. T he nasogastric tube is not well visualized below the diaphragm. A left upper extremity peripherally i nserted central venous catheter (PICC) is seen with tip in the superior vena cava. IMPRESSION: 1. Stable airspace opacities in the mid and lower lung zones, left worse than right, consistent with atelectasis versus pneumonia. 2. Stable small pleural effusions. 3. Cardiomegaly. Reviewed, dictated and finalized at location A. IMPRESSION: 1. Stable airspace opacities in the mid and lower lung zones, left worse than r ight, consistent with atelectasis versus pneumonia. 2. Stable small pleural effusions. 3. Cardiomegaly.
--- NOTE | ~2022-04-27 | XR_ITS ---
XR chest 1V portable DATE: 05/14/2022 06:50 INDICATION: Respiratory failure TECHNIQUE: Portable AP chest on 05/14/2022 at 0517 hours COMPARISON: Portable AP chest on 05/13/2022 at 0517 hours FINDINGS: Cardiomegaly. Pulmonary vascular congestion and redistribution. Bilateral prominent lower l janine infiltrates and/or atelectasis, stable on the left, increased on the right since 05/13. Probable m ild pleural effusions. No pneumothorax. ET tube is approximately 6 cm above juan m; ideal range is 2-5 cm. A nasogastric tube is noted in the stomach. Left upper extremity PIC catheter tip overlies superior vena cava. IMPRESSION: Cardiac megaly, pulmonary vascular congestion, bilateral infiltrates, increased on the ri ght since 05/13/2022 Reviewed, dictated and finalized at location A. OPERATIONS LEADER IMPRESSION: Cardiac megaly, pulmonary vascular congestion, bilateral infiltrate s, increased on the right since 05/13/2022
--- NOTE | ~2022-04-27 | XR_ITS ---
EXAMINATION: XR chest 1V portable DATE: 04/28/2022 05:34 INDICATION: Respiratory failure TECHNIQUE: frontal view of the chest was obtained. COMPARISON: Chest radiograph dated 04/27/2022 FINDINGS: Endotracheal tube tip 1.0 cm above the juan m. Nasogastric tube in the stomach. Hazy opacities in the left mid and right lower lung zones with more dense retrocardiac consolidation the left lower lung zone. No pneumothorax. Cardiomegaly. IMPRESSION: 1. Opacities in the left mid and bilateral lower lung zones likely representing small bilateral pleur al effusions with associated atelectasis and/or pneumonia. 2. Cardiomegaly. Reviewed, dictated and finalized at location A. IMPRESSION: 1. Opacities in the left mid and bilateral lower lung zones likely representing small bilateral pleural effusions with associated atelectasis and/or pneumonia . 2. Cardiomegaly.
--- NOTE | ~2022-04-27 | XR_ITS ---
EXAMINATION: XR abdomen NG/feed tube insert DATE: 05/11/2022 14:29 INDICATION: Orogastric tube placement. TECHNIQUE: A supine view of the abdomen on 2 radiographs was obtained. COMPARISON: Abdomen radiographs 05/10/2022 FINDINGS: The nasogastric tube is coiled in the pharynx. The endotracheal tube tip is 4.7 cm above th e juan m. A left upper extremity peripherally inserted central venous catheter (PICC) is seen with ti p in the superior vena cava. There are airspace opacities in right lower lung zone and left mid and l ower lung zones. IMPRESSION: 1. Nasogastric tube coiled in the pharynx. 2. Airspace opacities in right lower lung zone and left mid and lower lung zones, consistent with ate lectasis versus pneumonia. Reviewed, dictated and finalized at location A. IMPRESSION: 1. Nasogastric tube coiled in the pharynx. 2. Airspace opacities in right lower lung zone and left mid and lower lung zone s, consistent with atelectasis versus pneumonia.
--- NOTE | ~2022-04-27 | XR_ITS ---
EXAMINATION: XR chest ET placement DATE: 04/27/2022 20:40 INDICATION: Endotracheal tube adjustment. TECHNIQUE: A single frontal view of the chest was obtained. COMPARISON: Chest single view at 7:34 PM FINDINGS: There are airspace opacities in right lower lung zone. There are airspace opacities in all left lung zones with a perihilar and basilar predominance. No pleural effusion or pneumothorax. Cardi omegaly is noted. The endotracheal tube tip is 2.5 cm above the juan m. The nasogastric tube tip is i n the stomach. IMPRESSION: 1. Stable airspace opacities in right lower lung zone and all left lung zones, consistent with pulmon sujata edema versus pneumonia. 2. Cardiomegaly. Reviewed, dictated and finalized at location A. IMPRESSION: 1. Stable airspace opacities in right lower lung zone and all left lung zones, consistent with pulmonary edema versus pneumonia. 2. Cardiomegaly.
--- NOTE | ~2022-04-27 | XR_ITS ---
EXAMINATION: XR chest 1V portable DATE: 05/15/2022 05:58 INDICATION: Respiratory failure TECHNIQUE: frontal view of the chest was obtained. COMPARISON: Chest radiograph dated 05/14/2022 FINDINGS: Endotracheal tube tip 3.4 cm above the juan m. There is a gastric tube tip in the body of the stomach . Left upper extremity peripherally inserted central venous catheter (PICC) tip at the cephalad supe rior vena cava. Gradient of hazy airspace opacities in the mid to lower lung zones with improvement in the upper lung zones consistent with likely decrease in small bilateral posteriorly layering pleural effusions. Mor e dense opacities in the lower lung zones, left greater than right which could represent associated a telectasis and/or pneumonia. No pneumothorax. Cardiomegaly. IMPRESSION: 1. Decreasing small bilateral pleural effusions with persistent associated atelectasis and/or pneumon ia in the lower lung zones, left greater than right. 2. Cardiomegaly. Reviewed, dictated and finalized at location A. GAGE COORDINATOR IMPRESSION: 1. Decreasing small bilateral pleural effusions with persistent associated atel ectasis and/or pneumonia in the lower lung zones, left greater than right. 2. Cardiomegaly.
--- NOTE | ~2022-04-27 | XR_ITS ---
EXAMINATION: XR abdomen NG/feed tube insert DATE: 04/27/2022 19:39 INDICATION: Nasogastric tube placement. TECHNIQUE: A supine view of the abdomen was obtained. COMPARISON: None. FINDINGS: The lower abdomen is excluded. There are no dilated loops of bowel. The nasogastric tube ti p is in the stomach. IMPRESSION: 1. Nasogastric tube tip in the stomach. Reviewed, dictated and finalized at location A.
--- NOTE | ~2022-04-27 | XR_ITS ---
EXAMINATION: XR chest ET placement DATE: 05/11/2022 16:05 INDICATION: Endotracheal tube repositioning. TECHNIQUE: A single frontal view of the chest was obtained. COMPARISON: Chest single view at 5:09 AM, chest CT 05/11/2022 FINDINGS: There are airspace opacities in the mid and lower lung zones, left worse than right. There are small pleural effusions. No pneumothorax. Cardiomegaly is noted. The endotracheal tube tip is 2.7 cm above the juan m. A left upper extremity peripherally inserted central venous catheter (PICC) is seen with tip in the superior vena cava. The nasogastric tube tip is beyond the inferior margin of th e radiograph, but at least to the stomach. IMPRESSION: 1. Stable airspace opacities in the mid and lower lung zones, left worse than right, consistent with atelectasis or less likely pneumonia. 2. Stable small pleural effusions. 3. Cardiomegaly. Reviewed, dictated and finalized at location A. IMPRESSION: 1. Stable airspace opacities in the mid and lower lung zones, left worse than r ight, consistent with atelectasis or less likely pneumonia. 2. Stable small pleural effusions. 3. Cardiomegaly.
--- NOTE | ~2022-04-27 | XR_ITS ---
EXAMINATION: XR chest 1V portable DATE: 05/03/2022 05:08 INDICATION: Acute respiratory failure TECHNIQUE: frontal view of the chest was obtained. COMPARISON: Chest radiograph dated 05/02/2022 FINDINGS: Endotracheal tube tip 5.7 cm above the juan m. Nasogastric tube extends below the left hemidiaphragm with distal tip collimated off the study. Left upper extremity peripherally inserted central venous catheter (PICC) tip at the mid superior vena cava. No significant interval change in opacities in bilateral mid to lower lung zones which include small bilateral pleural effusions. No pneumothorax. Cardiomegaly. Visualized bones and soft tissues are unr emarkable. IMPRESSION: 1. Unchanged small bilateral pleural effusions with associated bibasilar atelectasis and/or pneumonia . 2. Cardiomegaly. Reviewed, dictated and finalized at location A. IMPRESSION: 1. Unchanged small bilateral pleural effusions with associated bibasilar atelec tasis and/or pneumonia. 2. Cardiomegaly.
--- NOTE | ~2022-04-27 | XR_ITS ---
EXAMINATION: XR chest ET placement DATE: 04/27/2022 19:39 INDICATION: Intubation. TECHNIQUE: A single frontal view of the chest was obtained. COMPARISON: Chest single view 04/27/2022 FINDINGS: There are airspace opacities in right lower lung zone and all left lung zones. No pleural e ffusion or pneumothorax. Cardiomegaly is noted. The endotracheal tube tip is 10 mm above the juan m. The nasogastric tube tip is beyond the inferior margin of the radiograph, but at least to the stomach . IMPRESSION: 1. Worsened airspace opacities in right lower lung zone and in all left lung zones, consistent with p ulmonary edema versus pneumonia. 2. Cardiomegaly. Reviewed, dictated and finalized at location A. IMPRESSION: 1. Worsened airspace opacities in right lower lung zone and in all left lung zo david, consistent with pulmonary edema versus pneumonia. 2. Cardiomegaly.
--- NOTE | ~2022-04-27 | XR_ITS ---
EXAMINATION: XR chest 1V portable DATE: 05/08/2022 05:41 INDICATION: Respiratory failure. TECHNIQUE: A single frontal view of the chest was obtained on 2 radiographs. COMPARISON: Chest single view 05/07/2022, chest CT 04/30/2022 FINDINGS: There are small right and moderate-sized left pleural effusions. There are airspace opaciti es at the lung bases. No pneumothorax. Cardiomegaly is noted. The endotracheal tube tip is 3.8 cm abo ve the juan m. The nasogastric tube tip is in the stomach. IMPRESSION: 1. Stable small right and moderate-sized left pleural effusions. 2. Stable airspace opacities at the lung bases, consistent with atelectasis or less likely pneumonia. 3. Cardiomegaly. Reviewed, dictated and finalized at location A.
--- NOTE | ~2022-04-27 | XR_ITS ---
EXAMINATION: XR chest 1V portable INDICATION: Respiratory failure TECHNIQUE: Portable AP chest at 0509 hours COMPARISON: 04/28/2022 FINDINGS: The endotracheal tube ends approximately 3.1 cm above the juan m. The nasogastric tube is f ollowed as far as the stomach. Its tip is beyond the inferior margin of the radiograph. There are sma ll pleural effusions. Minimal airspace opacities are present in the mid and lower lung zones. Cardiom egaly is noted. IMPRESSION: 1. Small pleural effusions with associated bibasilar atelectasis versus pneumonia. 2. Cardiomegaly. Reviewed, dictated and finalized at location A. IMPRESSION: 1. Small pleural effusions with associated bibasilar atelectasis versus pneumon ia. 2. Cardiomegaly.
--- NOTE | ~2022-04-27 | US_ITS ---
EXAMINATION: US venous doppler [facility] DATE: 05/11/2022 11:12 INDICATION: Shortness of breath TECHNIQUE: Grayscale ultrasound images without and with compression and Doppler ultrasound images of the bilateral lower extremity veins were obtained. COMPARISON: None. FINDINGS: The visualized portions of right common femoral vein, profunda (deep) femoral vein, femoral vein, pop liteal vein, posterior tibial veins, peroneal veins, gastrocnemius vein and greater saphenous vein ou tflow are patent. The visualized portions of left common femoral vein, profunda femoral vein, femoral vein, popliteal v ein, posterior tibial veins, peroneal veins, gastrocnemius vein and greater saphenous vein outflow ar e patent. IMPRESSION: 1. No deep venous thrombosis in either lower limb. Reviewed, dictated and finalized at location B.
--- NOTE | ~2022-04-27 | XR_ITS ---
EXAMINATION: XR chest 1V portable DATE: 05/12/2022 05:53 INDICATION: Respiratory failure. TECHNIQUE: A single frontal view of the chest was obtained. COMPARISON: 05/11/2022, chest CT 05/11/2022 FINDINGS: There are small pleural effusions. There are airspace opacities in the mid and lower lung z ones. No pneumothorax. Cardiomegaly is noted. The endotracheal tube tip is 3.1 cm above the juan m. T he nasogastric tube tip is beyond the inferior margin of the radiograph, but at least to the stomach. A left upper extremity peripherally inserted central venous catheter (PICC) is seen with tip in the superior vena cava. IMPRESSION: 1. Stable airspace opacities in the mid and lower lung zones, consistent with atelectasis versus pneu monia. 2. Stable small pleural effusions. 3. Cardiomegaly. Reviewed, dictated and finalized at location A. IMPRESSION: 1. Stable airspace opacities in the mid and lower lung zones, consistent with a telectasis versus pneumonia. 2. Stable small pleural effusions. 3. Cardiomegaly.
--- NOTE | ~2022-04-27 | XR_ITS ---
EXAMINATION: XR chest PICC line DATE: 05/01/2022 13:06 INDICATION: PICC line placement TECHNIQUE: AP and lateral views of the chest were obtained. COMPARISON: Chest radiograph dated 05/01/2022 at 5:19 AM FINDINGS: Left upper extremity peripherally inserted central venous catheter (PICC) which extends into the supe rior vena cava there is an abrupt 90 degrees angulation of the distal tip suggesting it likely extend s into the azygos vein. Endotracheal tube tip 2.5 cm above the juan m.. Nasogastric tube tip in the body of the stomach. Gradient of hazy basilar predominant airspace opacities in the bilateral mid and lower lung zones con sistent with moderate sized bilateral pleural effusions with associated basilar atelectasis and/or pn eumonia. No pneumothorax. Mild cardiomegaly. IMPRESSION: 1. Left M the PICC line tip in the azygos vein. 2. Moderate-sized bilateral pleural effusions with bibasilar atelectasis and/or pneumonia. 3. Cardiomegaly. Reviewed, dictated and finalized at location A.
--- NOTE | 2022-04-27 11:27 | ECG_ITS ---
Measurements Intervals [place] Rate: 106 P: OR: 0 QRS: 122 QRSD: 107 T: 0 QT: 178 QTc: 237 Interpretive Statements SINUS TACHYCARDIA INDETERMINATE AXIS NONSPECIFIC ST & T-WAVE ABNORMALITY SIGNIFICANT ARTIFACT LIMITS INTERPRETATION ABNORMAL ECG NO PREVIOUS ECG AVAILABLE FOR COMPARISON Electronically Signed On 04-27-2022 14:59:03 CDT by Reginald Gibbons M.D.
--- NOTE | 2022-04-27 11:27 | ED.SOB ---
HPI - SOB/Dyspnea General Chief Complaint: Shortness of Breath/Dyspnea Stated Complaint: COUGHING UP BLOOD Time Seen by Provider: 04/27/22 11:26 Source: patient and EMS Mode of arrival: EMS Limitations: no limitations History of Present Illness HPI Narrative: 77 years old white male came by ambulance from assisting living complaining of coughing started last night, today spitting up blood. History of COPD, congestive heart failure and atrial fibrillation. Related Data Home Medications Medication Instructions Recorded Confirmed amiodarone 200 mg tablet 08/30/21 amlodipine 5 mg tablet 08/30/21 furosemide 20 mg tablet 08/30/21 gabapentin 300 mg capsule 08/30/21 pravastatin 40 mg tablet 08/30/21 umeclidinium 62.5 mcg/actuation inhalation 08/30/21 blister powder for inhalation (Incruse Ellipta) warfarin 4 mg tablet 08/30/21 albuterol sulfate 90 mcg/actuation 2 inh inhalation Q4-6H PRN 04/27/22 breath activated powder Shortness Of Breath inhaler,sensor Allergies Allergy/AdvReac Type Severity Reaction Status Date / Time No Known Allergies Allergy Verified 04/27/22 11:40 Review of Systems Review of Systems: All systems reviewed & are unremarkable except as noted in HPI and below PMFSH Past Medical History Medical History Atrial fibrillation COPD (chronic obstructive pulmonary disease) Neuropathy Surgical History Surgical History S/P repair of hydrocele Family History Family History Father Family history of heart disease in male family member before age 55 Social History Social History Smoking status: Never smoker Alcohol intake: current Exam Narrative: General appearance: Well-developed, well-nourished Skin: Normal color Head: Normocephalic, nontraumatic Eyes: Clear conjunctiva ENT: Oropharynx normal, ears normal, nose normal Neck: Supple, nontender Chest and respiratory: Airway patent, mild respiratory distress, persistent coughing producing bloody sputum Heart: Irregular irregularity, tachycardia Abdomen: Soft, nontender, no organomegaly, quiet bowel sounds Vascular: Normal peripheral pulses, normal capillary refill. Musculoskeletal: Normal range of motion, nontender back Neurologic: Alert and oriented ?3, MAP CLERK is normal as tested, no gross motor deficit Course Consultations Consultation #1: Dr. Ontiveros Date: 04/27/22 Time: 13:13 Consultation #2: Dr. Chatman Date: 04/27/22 Time: 13:13 Vital Signs Vital signs: Vital Signs Temperature 36.9 C 04/27/22 11:20 Pulse Rate 100 04/27/22 11:20 Respiratory Rate 32 H 04/27/22 11:20 Blood Pressure 103/67 04/27/22 11:20 Pulse Oximetry 92 04/27/22 11:20 Oxygen Delivery Non-Rebreather Mask 04/27/22 11:20 Oxygen Flow Rate 15 04/27/22 11:20 Temperature 36.9 C 04/27/22 11:20 Pulse Rate 126 H 04/27/22 13:07 Respiratory Rate 20 04/27/22 13:07 Blood Pressure 135/58 L 04/27/22 13:07 Pulse Oximetry 91 04/27/22 13:07 Oxygen Delivery High Flow Nasal Cannula 04/27/22 12:23 Oxygen Flow Rate 15 04/27/22 12:23 MDM - SOB/Dyspnea Differential Diagnosis Differential diagnosis: Likely acute exacerbation of chronic obstructive airways disease, congestive heart failure, community acquired pneumonia and other (Acute respiratory failure) Lab Data Result diagrams: 04/27/22 11:39 04/27/22 11:39 Labs: Lab Results 04/27/22 04/27/22 04/27/22 Range/Units 11:39 11:39 11:39 WBC
[2022-04-27] MEDS: ALBUTEROL SULFATE NEB 2.5 MG/3 ML INH 5 MG INHALATION ×2 (11:35→20:30)
[2022-04-27] MEDS: IPRATROPIUM BR 0.02% INH SOLN 0.5 MG/2.5 ML VIAL INHALATION ×2 (11:36→20:30)
[2022-04-27 11:53] LABS: Alveolar/Arterial O2 Gradient 47.7 mmHg; Base Excess ABG -2.9 mEq/l (+/-2.0); Fractional Inspired Oxygen 21 %; HCO3 ABG 22.6 mEq/l (22.0-26.0); Oxygen Content ABG 15.8 %vol (16.0-22.0); PCO2 ABG 41.9 mmHg (35.0-45.0); PO2 ABG 51.9 mmHg (80.0-100.0); PO2 FiO2 Ratio Arterial Blood 2.47 %; Total Hemoglobin 13.5 g/dL (12.0-18.0); pH ABG 7.349 (7.350-7.450)
[2022-04-27 11:53] LABS: Hematocrit 40.9 % (42.0-52.0); Hemoglobin 12.9 g/dL (14.0-18.0); Mean Corpuscular HGB Conc 31.5 g/dl (32-36); Mean Corpuscular Hemoglobin 29.7 pg (26-34); Mean Platelet Volume 10.1 fl (7.4-10.4); Platelet Count Result 244 k/mm3 (150-375); Red Blood Count 4.35 M/mm3 (4.6-6.20); Red Cell Distribution Width 15.8 % (11.5-14.5); White Blood Count 16.9 K/mm3 (4.5-10.0)
[2022-04-27 11:54] LABS: Modified Allen's Test Pass; Site Drawn LEFT BRACHIAL
[2022-04-27 11:56] LABS: Oxygen Saturation ABG 85.1 % (95.0-100.0); Oxyhemoglobin 83.3 % THb (90.0-100.0)
--- NOTE | 2022-04-27 12:02 | PC.NURSE ---
Patient restless in bed, having difficulty leaving non rebreather on. Patient continues to slide down into bed and states his legs are hurting him. DELIA quintero.
[2022-04-27 12:03] LABS: INR 2.8; Prothrombin Time 28.3 Seconds (11.1-14.7)
[2022-04-27 12:04] LABS: Partial Thromboplastin Time 45.5 SECONDS (22.3-36.8)
[2022-04-27] MEDS: methylPREDNISolone SOD SUCC 125 MG VIAL IV PUSH (12:09)
[2022-04-27] MEDS: MORPHINE SULFATE (*CRX) 2 MG/ML INJ IV PUSH (12:09)
[2022-04-27] MEDS: ONDANSETRON INJ 4 MG/2 ML VIAL IV PUSH (12:09)
[2022-04-27 12:10] LABS: Alanine Aminotransferase 33 U/L (6-50); Albumin Level 4.1 g/dL (3.5-5.1); Alkaline Phosphatase 66 U/L (38-126); Anion Gap 16 mmol/L (8-16); Aspartate Amino Transferase 47 U/L (17-59); Bilirubin,Total 1.8 mg/dL (0.2-1.3); Blood Urea Nitrogen 24 mg/dL (9-20); Calcium 8.1 mg/dL (8.4-10.2); Carbon Dioxide 28 mmol/L (22-30); Chloride 95 mmol/L (98-107); Estimated CRCL calculation 48 ml/min; Estimated Glomerular Filt Rate 53; Glucose 142 mg/dL (65-110); Magnesium 1.7 mg/dL (1.6-2.3); Sodium 139 mmol/L (137-145)
[2022-04-27 12:14] LABS: Device ROOM AIR
[2022-04-27 12:17] LABS: NT Pro B Type Natriuretic Pept 4460 pg/mL (5-100)
[2022-04-27 12:21] LABS: Band Neutrophils Percent 11 % (0-6); Neutrophils Percent Manual 83 % (46-73); Platelet Estimate Adequate (Adequate); Total Cells Counted 100
--- NOTE | 2022-04-27 12:21 | PC.NURSE ---
Patient placed on high flow nasal cannula, still refusing to wear non rebreather due to continuous coughing. DELIA Escoto in room.
[2022-04-27 12:22] LABS: Schistocytes None Seen (NORMAL)
[2022-04-27 12:23] LABS: NT Pro B Type Natriuretic Pept 4440 pg/mL (5-100); Troponin I 0.045 ng/mL (0.000-0.034)
[2022-04-27 12:24] LABS: D Dimer 0.54 ug/mL (<0.48)
[2022-04-27 12:36] LABS: Influenza A QL RT-PCR Negative (Negative); Influenza B QL RT-PCR Negative (Negative); SARS-CoV-2 RNA PCR Negative
[2022-04-27] MEDS: FUROSEMIDE INJ 40 MG/4 ML VIAL IV PUSH (12:42)
--- NOTE | 2022-04-27 12:49 | PC.NURSE ---
Per EDP Jevon, hold cough suppressant at this time.
[2022-04-27] MEDS: PHYTONADIONE 5 MG TABLET 10 MG PO (13:48)
--- NOTE | 2022-04-27 13:53 | WPDCNINT ---
Assessment and Plan Assessment and plan (1) Hemoptysis: Code(s): R04.2 - Hemoptysis Status: Acute Assessment and Plan: Could be related to pneumonia, coughing, rupture of a small blood vessel, patient on Coumadin which is probably causing the hemoptysis -ER is reversing the effects of Coumadin with vitamin K and Kcentra -will continue to monitor, monitor coags -will obtain DIC panel -control cough with anti -tussive medications (2) Respiratory failure with hypoxia: Code(s): J96.91 - Respiratory failure, unspecified with hypoxia Status: Acute Assessment and Plan: Patient complains of shortness of breath, cough with hemoptysis -could be related to pneumonia, patient does have a history of COPD -patient received 1 dose of levofloxacin in the ER, will continue, add azithromycin -will add bronchodilators received dose -will obtain echocardiogram (3) Pneumonia: Code(s): J18.9 - Pneumonia, unspecified organism Status: Acute Assessment and Plan: Chest x-ray on admission: Diffuse opacities throughout the lungs, consistent with pneumonia versus atelectasis versus pulmonary edema. -continue antibiotics as above (4) COPD (chronic obstructive pulmonary disease): Code(s): J44.9 - Chronic obstructive pulmonary disease, unspecified Status: Acute Assessment and Plan: Bronchodilators, supplemental oxygen, antibiotics (5) CHF (congestive heart failure): Code(s): I50.9 - Heart failure, unspecified Status: Acute Assessment and Plan: Elevated proBNP on admission -patient given Lasix -will obtain echocardiogram Plan DVT prophylaxis: SCDs Stress ulcer prophylaxis: Protonix Nutrition: NPO for now Code Status: Full code Critical Care Time Spent: 44 minutes Due to a high probability of clinically significant, life threatening deterioration, the patient required my highest level of preparedness to intervene emergently and I personally spent this critical care time directly and personally managing the patient. This critical care time included obtaining a history; examining the patient; pulse oximetry; ordering and review of studies; arranging urgent treatment with development of a management plan; evaluation of patient's response to treatment; frequent reassessment; and discussions with other providers. It was exclusive of separately billable procedures and treating other patients and teaching time. Please see Assessment and Plan section and the rest of the note for further information on patient assessment and treatment Technical Sales Consultant Consult Note Consult date: 04/27/22 Reason for consult: Hemoptysis, pneumonia, AFib on Coumadin HPI: Martínez Martinez is a 77 year old male with past medical history of COPD, atrial fibrillation, peripheral neuropathy presented the ED on 04/27/2022 with from assisted living facility with hemoptysis. According to the patient started having some cough zechariah spells yesterday with clear sputum but on the morning of admission he started coughing up blood. Patient complains of shortness of breath along with at denies any chest pain, abdominal pain, nausea, vomiting. Denies any dizziness or lightheadedness. He states he takes a blood thinner for his irregular heart rate. In the ER patient did continue to have episodes of coughing along with hemoptysis. WBC count is 16.9, hemoglobin 12.9, platelets 244. INR of 2.8, creatinine 1.3, proBNP 4440, total bili of 1.8, normal LFTs. Patient was negative for influenza A and B, SARS-CoV-2 PCR was negative. Chest x-ray shows diffuse opacities throughout the lungs, consistent with pneumonia versus atelectasis versus pulmonary edema. Patient was given a dose of Lasix, methylprednisolone 125 mg IV x1, morphine, levofloxacin 750 mg IV x1, vitamin K 10 mg p.o. and Kcentra. I saw the patient in the ER, patient is awake, alert, oriented x3, answers to questions and follows commands in all extremities. Abo
[2022-04-27] MEDS: PERFLUTREN LIPID MICROSPHERES 1.5 ML VIAL DILUTED TO 10 ML TOTAL VOLUME IV PUSH (15:19)
--- NOTE | 2022-04-27 15:19 | IVDEFINITY ---
Prior to administration of IV Definity the patient was educated on the risks and benefits of the imaging enhancing agent including potential adverse side effects. The patient verbalized understanding. Allergies were verified. No exclusion criteria were identified and at least one of the following inclusion criteria were met: 1) physician request, 2) patient technically difficult to image (per the [place] [employer]ocardi[employer] guidelines of two or more segments not discernable within the apical view), or 3) questionable left ventricular function. ?
--- NOTE | 2022-04-27 15:21 | PCRCNOTE ---
Window of time for administration has passed. See next scheduled administration.
[2022-04-27] MEDS: hetaSTARCH 6%/NACL 500 ML 250 ML IV CONT (16:30)
[2022-04-27] MEDS: ETOMIDATE 20 MG/10 ML AMPUL 40 MG IV PUSH (19:24)
[2022-04-27] MEDS: SUCCINYLCHOLINE CHLORIDE 20 MG/ML 10 ML VIAL 40 MG IV PUSH (19:24)
[2022-04-27] MEDS: FENTANYL 2,500MCG/NS250ML(*CRX 2,500 MCG/250 ML BAG IV CONT (19:35)
[2022-04-27] MEDS: SODIUM CHLORIDE 0.9% IV 1,000 ML 999 ML IV CONT (19:35)
[2022-04-27] MEDS: MIDAZOLAM 100MG/NS 100ML(*CRX) 100 MG/100 ML BAG IV CONT (19:55)
[2022-04-27 20:00] LABS: Troponin I 0.048 ng/mL (0.000-0.034)
[2022-04-27] MEDS: NOREPINEPHRINE 8 MG/D5W 250 ML 8 MG/250 ML BAG 9.38 MG IV CONT (20:00)
--- NOTE | 2022-04-27 20:24 | PM.IMHP ---
H&P: HPI History of Present Illness Date/Time: 04/27/22 1700 Chief Complaint: Shortness of breath dyspnea. Narrative: This is a 77-year-old male patient who came in coughing up blood. The patient has been complaining of coughing up blood since last night. Patient has a history of COPD, congestive heart failure and atrial fibrillation. The patient has been on Coumadin. Chest x-ray was read as worsened airspace opacities in the right lower lung zones and in all left lung zones consistent with pulmonary edema versus pneumonia. Cardiomegaly. The patient was given nebulizer treatments, Solu-Medrol, morphine, Zofran, Lasix, azithromycin, Levaquin, vancomycin, vitamin K and Kcentra. The welder apprentice arc has already seen the patient and made a note. His white count is noted to be 16.9. H&H is 12.9 and 40.9. His INR is noted to be 2.8. PTT is 45.5. The dimer is 0.54. His ABGs pH 7.349. O2 saturation 85.1. Troponin 0.045 initially and the next 1 was 0.048. BNP 4460. Influenza A/B and COVID were found to be negative. The patient told me that he tripped at [facility] in laid on the floor all night. The patient is being admitted to inpatient status on the date of service of 04/27/2022. Review of Systems Review of Systems: see hpi All systems reviewed & are unremarkable except as noted in HPI and below Constitutional: Constitutional: Reports as per HPI and Reports no additional constitutional complaints Eyes: Eyes: Reports as per HPI and Reports no additional eye complaints ENT: Reports system reviewed and no additional complaints, except as documented and Reports Normal hearing present Cardiovascular: Cardiovascular: Reports no additional cardiovascular complaints Respiratory: Respiratory: Reports no additional respiratory complaints and Reports no additional respiratory complaints Gastrointestinal: Gastrointestinal: Reports as per HPI and Reports no additional gastrointestinal complaints Musculoskeletal: Musculoskeletal: Reports no additional musculoskeletal complaints Integumentary/Breasts: Skin/Breast: Reports system reviewed and no additional complaints, except as docu and Reports as per HPI Neurologic: Reports system reviewed and no additional complaints, except as documented, Reports as per HPI and Reports Normal hearing present Psychiatric: Psychiatric: Reports no additional psychiatric complaints and Reports as per HPI Endocrine: Endocrine: Reports no additional endocrine complaints Hematologic/Lymphatic: Hematologic/Lymphatic: Reports no additional hematologic/lymphatic complaints Allergic/Immunologic: Allergic/Immunologic: Reports no additional allergic/immunologic complaints [facility] Past Medical History Medical History (Updated 04/27/22 @ 20:38 by Dulce Allen NP) Atrial fibrillation COPD (chronic obstructive pulmonary disease) HTN (hypertension) with goal to be determined Hyperlipidemia Neuropathy Surgical History Surgical History H/O cataract extraction History of appendectomy S/P repair of hydrocele S/P tonsillectomy and adenoidectomy Family History Family History (Updated 04/27/22 @ 20:37 by Dulce Allen NP) Father Family history of heart disease in male family member before age 55 Son Acute myocardial infarction Mother Cancer Social History Social History (Updated 04/27/22 @ 20:37 by Dulce Allen NP) Social History: The patient is . He had 4 children and his son with coronary artery disease. The patient is retired from real estate. The patient never smoked and he does occasionally drink a beer. The patient is from the [facility]. He does not have a durable power ip technology transactions attorney for healthcare. Code status full code. Smoking status: Never smoker Alcohol intake: current Spiritual care concerns: No Has the Lack of Transportation Kept You From Medical Appointments or From Get
--- NOTE | 2022-04-27 20:49 | P.PNCROSS_ITS ---
Event Note Event Note Event Note: 04/27/221899 I was called the ICU as the patient was desatting. The patient h ad been on Airvo and a BiPAP machine. The patient's O2 saturations were in the 80s. The patient was lethargic. We attempted to backed the patient. The patient was not responding to is I was not able to wait for any ABGs as the patient was lethargic and he was desatting. We started to backed the patient into we can get him intubated.
--- NOTE | 2022-04-27 20:50 | WPDPROCEDUR ---
Procedures Intubation Intubation Date: 04/27/22 Intubation Time: 19:18 A pre-procedural Time-Out was completed immediately before starting the procedure and confirmed: Patient Identification, Site, Procedure, Patient Position and the Availability of Requisite Equipment: Yes Sedative: etomidate Mg given: 40 Paralytic: succinylcholine Mg given: 40 Laryngoscope: fiber optic video scope Assist device used: fiber optic device ET tube size: 7.5 Tube secured depth (cm): 26 Tube secured location: lips Tube placement confirmation: visualized tube passing through cords, equal breath sounds bilaterally and confirmation by capnometry Patient tolerated procedure: no complications Intubation complications: none Additional comments: His x-ray shows that the ET tube was 10 mm above the juan m. This was confirmed with Dr. Calero. So we pulled the ET tube back to cm. 24 cm at the lip. Repeat chest x-ray. His OG tube is in place.
--- NOTE | 2022-04-27 20:53 | WPDPROCEDUR ---
Procedures Central Line Placement Right Femoral: Central Line Date: 04/27/22 Central Line Time: 19:45 Discussed w/ the patient/family/POA,the placement of a central venous catheter, including its clinical necessity/indication & associated potential risks, benifits and alternatives.: Yes The patient/family/POA understand(s) and acknowledge(s) the need to proceed with central venous catheter insertion as an important element of the patient's clinical management.: Yes Consent: I have discussed with the patient and/or surrogate, the non-emergent placement of a central venous catheter, including its clinical necessity/indication and associated potential risks and complications. The patient and/or surrogate understand(s) and acknowledge(s) the need to proceed with central venous catheter insertion as an important element of the patient's clinical management. Time Out Performed: Yes Patient Position: supine Patient placed on monitor/pulse ox: Yes Provider Prep: mask and Max. sterile barrier precautions Central line prep: 2% Chlorhexidine scrub Local anesthesia used: lidocaine 1% Amount of anesthesia used (ml): 5 Sterile US Technique with sterile gel/sterile probe covers: Yes Central line lumen inserted: triple Kinyarwanda: 7 Length (cm): 16 Post Procedure: sutured in place, good blood return, all ports aspirated, flushed, capped, transparent dressing and hemostatic product Additional comments: Not necessary as it is femoral
[2022-04-27 21:02] LABS: Alveolar/Arterial O2 Gradient 596.7 mmHg; Base Excess ABG -2.7 mEq/l (+/-2.0); Carboxyhemoglobin 0.3 % THb (0-2.0); Fractional Inspired Oxygen 100 %; HCO3 ABG 24.1 mEq/l (22.0-26.0); Methemoglobin ABG 0.2 %THb (0-1.5); Oxygen Content ABG 15.4 %vol (16.0-22.0); PCO2 ABG 49.9 mmHg (35.0-45.0); PO2 ABG 66.4 mmHg (80.0-100.0); PO2 FiO2 Ratio Arterial Blood 0.66 %; Reduced Hemoglobin 8.5 %THb (0-5.0); pH ABG 7.301 (7.350-7.450)
[2022-04-27 21:03] LABS: Arterial Blood Gas Ventilator rate 18 /MIN; Device VENTILATOR; Modified Allen's Test Unable to perform; Site Drawn RIGHT RADIAL
[2022-04-27 21:04] LABS: Arterial Blood Gas PEEP 5 cmH2O; Arterial Blood Gas Tidal Volume 500 ml; Arterial Blood Gas Vent Mode CMV
[2022-04-27] MEDS: CENTRAL LINE FLUSH 10 ML IV PUSH (21:13)
[2022-04-27] MEDS: MINERAL OIL/WHITE PETROLATUM OINTMENT 1 APPLIC EACH EYE (21:13)
[2022-04-27 22:43] LABS: Creatine Kinase 684 U/L (55-170)
[2022-04-27] MEDS: methylPREDNISolone SOD SUCC 125 MG VIAL 60 MG IV PUSH (23:32)
[2022-04-28] VITALS (86 sets, daily range): BP systolic 89–125; BP diastolic 55–82; PULSE 59–82; RESP 15–21; TEMP 36.1–37.7; O2SAT 92–97; BMI 39.2
[2022-04-28 00:19] LABS: Troponin I 0.052 ng/mL (0.000-0.034)
[2022-04-28] MEDS: ALBUTEROL SULFATE NEB 2.5 MG/3 ML INH 5 MG INHALATION ×4 (02:00→21:11)
[2022-04-28] MEDS: IPRATROPIUM BR 0.02% INH SOLN 0.5 MG/2.5 ML VIAL INHALATION ×4 (02:00→21:12)
[2022-04-28] MEDS: NOREPINEPHRINE 8 MG/D5W 250 ML 8 MG/250 ML BAG 20.63 MG IV CONT (04:05)
[2022-04-28 05:23] LABS: Hematocrit 33.7 % (42.0-52.0); Hemoglobin 10.7 g/dL (14.0-18.0); Mean Corpuscular HGB Conc 31.8 g/dl (32-36); Mean Corpuscular Hemoglobin 29.6 pg (26-34); Mean Corpuscular Volume 93.4 fl (80-100); Mean Platelet Volume 10.4 fl (7.4-10.4); Platelet Count Result 239 k/mm3 (150-375); Red Blood Count 3.61 M/mm3 (4.6-6.20); Red Cell Distribution Width 15.6 % (11.5-14.5); White Blood Count 17.2 K/mm3 (4.5-10.0)
[2022-04-28] MEDS: CENTRAL LINE FLUSH 10 ML IV PUSH ×3 (05:28→22:12)
[2022-04-28] MEDS: methylPREDNISolone SOD SUCC 125 MG VIAL 60 MG IV PUSH ×3 (05:28→18:23)
[2022-04-28 05:30] LABS: Prothrombin Time 22.3 Seconds (11.1-14.7)
[2022-04-28 05:31] LABS: Partial Thromboplastin Time 50.2 SECONDS (22.3-36.8)
[2022-04-28 05:32] LABS: Chloride 95 mmol/L (98-107)
[2022-04-28 05:42] LABS: Troponin I 0.033 ng/mL (0.000-0.034)
[2022-04-28 05:46] LABS: Alanine Aminotransferase 67 U/L (6-50); Alkaline Phosphatase 46 U/L (38-126); Anion Gap 12 mmol/L (8-16); Aspartate Amino Transferase 90 U/L (17-59); Bilirubin,Total 1.9 mg/dL (0.2-1.3); Blood Urea Nitrogen 34 mg/dL (9-20); Calcium 7.4 mg/dL (8.4-10.2); Carbon Dioxide 25 mmol/L (22-30); Estimated CRCL calculation 33 ml/min; Estimated Glomerular Filt Rate 32; Glucose 208 mg/dL (65-110); Magnesium 1.6 mg/dL (1.6-2.3); Phosphorus 3.3 mg/dL (2.5-4.5); Sodium 132 mmol/L (137-145)
[2022-04-28 06:00] LABS: Alveolar/Arterial O2 Gradient 450.2 mmHg; Base Excess ABG 1.1 mEq/l (+/-2.0); Carboxyhemoglobin 0.3 % THb (0-2.0); HCO3 ABG 26.4 mEq/l (22.0-26.0); Methemoglobin ABG 0.2 %THb (0-1.5); Oxygen Content ABG 15.5 %vol (16.0-22.0); Oxygen Saturation ABG 94.6 % (95.0-100.0); Oxyhemoglobin 93.6 % THb (90.0-100.0); PCO2 ABG 44.7 mmHg (35.0-45.0); PO2 ABG 73.3 mmHg (80.0-100.0); Total Hemoglobin 11.7 g/dL (12.0-18.0); pH ABG 7.389 (7.350-7.450)
[2022-04-28 06:01] LABS: Arterial Blood Gas Vent Mode CMV; Arterial Blood Gas Ventilator rate 18 /MIN; Device VENTILATOR; Fractional Inspired Oxygen 80 %; Modified Allen's Test Unable to perform; PO2 FiO2 Ratio Arterial Blood 0.92 %; Reduced Hemoglobin 5.9 %THb (0-5.0); Site Drawn RIGHT RADIAL
[2022-04-28 06:02] LABS: Arterial Blood Gas PEEP 5 cmH2O; Arterial Blood Gas Tidal Volume 500 ml
[2022-04-28 06:20] LABS: Add Urine Microscopic? YES; Appearance Urine Cloudy (Clear); Bacteria Urine Trace /hpf; Bilirubin Urine Negative (Negative); Blood Urine 2+ (Negative); Color Urine Amber (Yellow); Glucose Urine UA Negative (Negative); Ketones Urine Negative (Negative); Leukocyte Esterase Ur Negative LEU/UL (Negative); Mucus Urine Rare /lpf; Nitrate Urine Negative (Negative); Protein Urine 1+ mg/dL (Negative); Specific Grav Ur 1.016 (1.001-1.035); Urobilinogen Urine Negative mg/dL (<2.0)
[2022-04-28 06:23] LABS: CRP 31.7 mg/dL (<1.0)
[2022-04-28 07:53] LABS: Band Neutrophils Percent 35 % (0-6); Lymphocytes Absolute Manual 0.17 K/mm3 (1.1-4.5); Metamyelocytes Percent 1 %; Monocytes Absolute Manual 0.51 K/mm3 (0.1-0.90); Monocytes Percent Manual 3 % (3-9); Neutrophils Absolute Manual 16.34 K/mm3 (1.3-6.7); Neutrophils Percent Manual 60 % (46-73); Total Cells Counted 100
[2022-04-28 07:54] LABS: Platelet Estimate Adequate (Adequate); Poikilocytosis 1+ (NORMAL); Schistocytes None Seen (NORMAL)
[2022-04-28] MEDS: FUROSEMIDE INJ 40 MG/4 ML VIAL IV PUSH (08:38)
[2022-04-28] MEDS: MINERAL OIL/WHITE PETROLATUM OINTMENT 1 APPLIC EACH EYE ×2 (08:38→22:14)
[2022-04-28] MEDS: PANTOPRAZOLE SODIUM IV 40 MG VIAL IV PUSH ×2 (08:43→22:14)
--- NOTE | 2022-04-28 10:16 | ECG_ITS ---
Measurements Intervals [place] Rate: 67 P: ME: 0 QRS: 19 QRSD: 142 T: -14 QT: 459 QTc: 485 Interpretive Statements ATRIAL FIBRILLATION INTRAVENTRICULAR CONDUCTION DELAY [130+ ms QRS DURATION] WARNING: DATA QUALITY MAY AFFECT INTERPRETATION COMPARED TO ECG 04/27/2022 11:29:17 HEART RATE IS NOW CONTROLLED COMPARED TO PRIOR STUDY Electronically Signed On 04-28-2022 14:07:51 CDT by Charly Rivas M.D.
--- NOTE | 2022-04-28 10:59 | PM.IMPN ---
Progress Note: A&P Assessment and Plan (1) Hemoptysis: Code(s): R04.2 - Hemoptysis Status: Acute Assessment and Plan: INR not supratherapeutic for atrial fibrillation but will hold due to hemoptysis. S/P vitamin k correction. No more episodes since intubated. Unable to get CTA to rule out due to creatinine. Unable to participate to do V/Q scan. Will continue to monitor. -Continue to hold warfarin (2) Respiratory failure with hypoxia: Code(s): J96.91 - Respiratory failure, unspecified with hypoxia Status: Acute Assessment and Plan: COPD versus pulmonary edema versus pneumonia. -Continue diuresis with furosemide -Continue treatment of pneumonia with levofloxacin and vancomycin -Holding COPD inhaler - umeclidinium due to intubation -Wean oxygen on ventilator as tolerated . (3) Pneumonia: Code(s): J18.9 - Pneumonia, unspecified organism Status: Acute Assessment and Plan: Continue treatment with vancomycin and levofloxacin for now. MRSA swab sent. (4) Acute exacerbation of chronic obstructive airways disease: Code(s): J44.1 - Chronic obstructive pulmonary disease with (acute) exacerbation Status: Acute Assessment and Plan: Holding umeclinidium due to intubation at this time. (5) CHF (congestive heart failure): Code(s): I50.9 - Heart failure, unspecified Status: Acute Assessment and Plan: Echo with EF 40-45% severe RV enlargement and RV systolic dysfunction, biatrial enlargement, atrial fibrillation. -Continue furosemide (6) Hypotension: Code(s): I95.9 - Hypotension, unspecified Status: Acute Assessment and Plan: Continue norepinephrine as needed. Continue diuresis for volume overload. Pneumonia appears to be adequately treated at this time. -Continue levofloxacin and vancomycin -Continue furosemide (7) Coffee ground emesis: Code(s): K92.0 - Hematemesis Status: Acute Assessment and Plan: OGT with coffee ground output. Gastroenterology consulted. PPI increased to BID. Holding TF until after Gastroenterology consult completed. (8) Atrial fibrillation: Code(s): I48.91 - Unspecified atrial fibrillation Status: Acute Assessment and Plan: Warfarin held due to hemoptysis. Rate controlled with amiodarone prior to admission. May need to restart amiodarone per OG tube tomorrow. Subjective Date/time seen: 04/28/22 1000 Patient intubated and sedated. Review of Systems Review of Systems: ROS unobtainable: Yes unobtainable due to endotracheal tube Exam Narrative: GENERAL: NAD, cooperative HEENT: Normocephalic, atraumatic, OGT with coffee ground emesis NECK: Supple CV: Normal S1, S2, RRR, No MRG RESP: Coarse breath sounds bilaterally, No crackles, wheezes or rhonchi. Abdomen: Soft, non-tender, non-distended EXTREMITIES: Warm and well perfused, no clubbing, cyanosis. Trace ankle edema bilaterally. SKIN: warm, dry and intact. NEURO:Intubated and sedated. Objective Data Vital Signs Vital Signs: Vital Signs - 24 hr 04/27/22 22:00 04/27/22 22:00 04/27/22 22:02 Temperature 37.7 C H Pulse Rate 73 83 76 Respiratory Rate 18 Blood Pressure 79/50 L 79/50 L Pulse Oximetry 94 Oxygen Delivery Fraction of Inspired Oxygen 04/27/22 22:05 04/27/22 22:43 04/27/22 22:43 Temperature Pulse Rate 76 78 78 Respiratory Rate 18 18 Blood Pressure 81/63 L Pulse Oximetry Oxygen Delivery Fraction of Inspired Oxygen 04/27/22 22:21 04/27/22 23:00 04/27/22 23:18 Temperature Pulse Rate 80 77 70 Respiratory Rate 18 16 Blood Pressure 81/57 L 97/68 L Pulse Oximetry 95 Oxygen Delivery Fraction of Inspired Oxygen 04/27/22 23:31 04/27/22 23:46 04/28/22 00:00 Temperature Pulse Rate 68 67 67 Respiratory Rate 16 Blood Pressure 96/67 L 96/68 L Pulse O
--- NOTE | 2022-04-28 14:56 | WPDGICN ---
Assessment and Plan Assessment and plan (1) Coffee ground emesis: Code(s): K92.0 - Hematemesis Status: Acute Assessment and Plan: Coffee-ground NG tube is identified. I suspect this is from ingestion of blood from hemoptysis. If so main treatment should be directed towards hemoptysis. It is possible given patient's circumstance he may have stress gastritis. Patient's hemoglobin has fallen from approximately 12-10. I would recommend covering patient with PPI for possible stress gastritis. Invasive testing does not appear appropriate in this patient at present. Continue to monitor and treat conservatively. (2) Hemoptysis: Code(s): R04.2 - Hemoptysis Status: Acute (3) Acute exacerbation of chronic obstructive airways disease: Code(s): J44.1 - Chronic obstructive pulmonary disease with (acute) exacerbation Status: Acute (4) CHF (congestive heart failure): Code(s): I50.9 - Heart failure, unspecified Status: Acute (5) Pneumonia: Code(s): J18.9 - Pneumonia, unspecified organism Status: Acute GI Consult Note Consult date/time: 04/28/22 14:56 Reason for consult: Coffee-ground NG tube return HPI: Martínez Martinez is a 77 year old male seen in evaluation at the request of the radio engineer. Patient presented to the hospital yesterday with coughing up blood. Patient has a history of COPD, atrial fibrillation and congestive heart failure. He has been treated with Coumadin. After admission hospital patient was started with antibiotics and required intubation. After intubation NG tube was placed and coffee-ground return was obtained. For this reason I have been consulted. Patient is unable to add any history. Review of Systems Review of Systems: ROS unobtainable: Yes unobtainable due to endotracheal tube PMFSH Past Medical History Medical History (Updated 04/28/22 @ 14:59 by Vadim Parks MD) Atrial fibrillation COPD (chronic obstructive pulmonary disease) HTN (hypertension) with goal to be determined Hyperlipidemia Neuropathy Surgical History Surgical History H/O cataract extraction History of appendectomy S/P repair of hydrocele S/P tonsillectomy and adenoidectomy Family History Family History (Updated 04/27/22 @ 20:38 by Dulce Allen NP) Father Family history of heart disease in male family member before age 55 Son Acute myocardial infarction Mother Cancer Social History Social History (Updated 04/27/22 @ 20:37 by Dulce Allen NP) Social History: The patient is . He had 4 children and his son with coronary artery disease. The patient is retired from real estate. The patient never smoked and he does occasionally drink a beer. The patient is from the [facility] promotional advertising assistant [facility]. He does not have a durable power trial attorney for healthcare. Code status full code. Smoking status: Never smoker Alcohol intake: current Spiritual care concerns: No Has the Lack of Transportation Kept You From Medical Appointments or From Getting Medications?: Yes Within the Past 12 Months, Were You Worried Whether Your Food Would Run Out Before You Got Money to Buy More?: Never True What is Your Housing Situation Today?: I Have Housing Are You Worried That in the Next 2 Months, You May Not Have Your Own Housing to Live In?: No Do You Have Trouble Paying Your Heating Or Electricity Bill?: No Do You Have Trouble Paying For Medicines?: No Are You Currently Unemployed and Looking for Work?: No Highest Level of Education Completed: Associate Degree Do You Have Trouble With Childcare or the Care of a Family Member?: No Meds Home Medications and Allergies Home Medications Medication Instructions Recorded Confirmed Type amiodarone 200 mg tablet 200 mg PO DAILY 08/30/21 04/27/22 History amlodipine 5 mg tablet 5 mg PO DAILY 08/30/21 04/27/22
[2022-04-28] MEDS: NOREPINEPHRINE 8 MG/D5W 250 ML 8 MG/250 ML BAG 18.75 MG IV CONT (16:44)
--- NOTE | 2022-04-28 16:53 | WPDCNINT ---
Assessment and Plan Assessment and plan (1) Respiratory failure with hypoxia: Code(s): J96.91 - Respiratory failure, unspecified with hypoxia Status: Acute Assessment and Plan: Acute respiratory failure with hypoxemia associated with hemoptysis. He has pneumonia, community acquired, and is on antibiotics including Levaquin 750 mg/day and Vancomycin to cover these suspected pathogens. He is on IV Solu-Medrol, albuterol, and has been able to weaned from 80% oxygen to 55%. His peak airway pressures are low. We will continue to wean FiO2, treat with antibiotics, monitor hemoptysis which is improving. Today his height sectioning shows dark discoloration that looks like old blood. His NG tube showed coffee-ground so it is possible that he had stress gastritis and aspirated into his lungs. When he coughed it appeared he was having hemoptysis. His H/H has drifted down slightly, 12.8/39.8% yesterday to 10.7/33.7% today. plan: continue antibiotics - Levaquin and Vancomycin, IV steroids, stress ulcer prophylaxis, mechanical ventilation with weaning FiO2 and reducing support with plans to extubate as tolerated, expected 1-2 days as the best case scenario. No plans for bronchoscopy at this point. If hemoptysis recurs, get chest CT to localize the source and consider bronchoscopy to control. He has a femoral triple lumen catheter placed for hypotension, and is getting norepinephrine 10 mcg/min to support BP. This will be weaned as tolerated, however BP is on the low side 95/61 with MAP around 69-70; increased fluids and increasde levo to 15 mcg/min Monitor hourly uop and repeat BMP. His INR was elevated due to Coumadin which he is on for atrial fibrillation. Start TF with Yoselin 1.2 per humidifier attendant recommendations. Repeat chemistries, monitor Na+, H/H. Has biventricular dysfunction, may have more problems than appeared at admission. His pulmonary hypertension is chronic and may have an acute component. (2) COPD (chronic obstructive pulmonary disease): Code(s): J44.9 - Chronic obstructive pulmonary disease, unspecified Status: Acute Assessment and Plan: Known COPD, uses O2 at night, no CPAP and henao snot use inhalers. He has been on O2 several years at night, followed at [facility] in [place] mainly with cardiac disease. He will need out patient follow up, and he can be followed here if he wants since he lives at [facility] which is close to [facility]. Needs Home O2 before discharge. May need O2 with exertion which is new for him. (3) Hemoptysis: Code(s): R04.2 - Hemoptysis Status: Acute Assessment and Plan: This was present before admission, has improved. With his (+) coffee grounds on NG, the hemoptysis may be due to aspiration of blood from stomach and use of Coumadin for atrial fib. He is on PPI. Will start TF which will help to decrease gastric acid. He did not have excessive rbc on his urinalysis. He does not have a history of a collagen vascular disease. Will check MICHAEL; consider pulmonary renal syndromes associated with vasculitis. (4) Pneumonia: Code(s): J18.9 - Pneumonia, unspecified organism Status: Acute Assessment and Plan: Community-acquired pneumonia, infiltrate mainly on the left side, WBC 17K, mech ventilation AC mode rate 18 x 500 now 50%, PEEP 5 Continue antibiotics, check urine antigens, blood cultures. He has no sputum to send, scant secretions. . (5) Atrial fibrillation: Code(s): I48.91 - Unspecified atrial fibrillation Status: Acute Assessment and Plan: His atrial fibrillation with a controlled rate in the 60s. He was on Coumadin at home for his atrial fib. His Coumadin
[2022-04-28 21:31] LABS: Anion Gap 8 mmol/L (8-16); Blood Urea Nitrogen 37 mg/dL (9-20); Calcium 7.7 mg/dL (8.4-10.2); Carbon Dioxide 29 mmol/L (22-30); Chloride 95 mmol/L (98-107); Estimated CRCL calculation 39 ml/min; Estimated Glomerular Filt Rate 39; Glucose 196 mg/dL (65-110); Potassium 4.1 mmol/L (3.4-5.0); Sodium 132 mmol/L (137-145)
[2022-04-29] VITALS (37 sets, daily range): BP systolic 107–139; BP diastolic 60–89; PULSE 62–91; RESP 18–20; TEMP 36.4–36.6; O2SAT 93–96
[2022-04-29] MEDS: methylPREDNISolone SOD SUCC 125 MG VIAL 60 MG IV PUSH ×4 (00:33→18:21)
[2022-04-29] MEDS: IPRATROPIUM BR 0.02% INH SOLN 0.5 MG/2.5 ML VIAL INHALATION ×4 (03:19→20:21)
[2022-04-29] MEDS: ALBUTEROL SULFATE NEB 2.5 MG/3 ML INH 5 MG INHALATION ×4 (03:19→20:21)
[2022-04-29] MEDS: NOREPINEPHRINE 8 MG/D5W 250 ML 8 MG/250 ML BAG 28.13 MG IV CONT ×3 (03:27→20:08)
[2022-04-29] MEDS: FENTANYL 2,500MCG/NS250ML(*CRX 2,500 MCG/250 ML BAG 7.5 MCG IV CONT (05:31)
[2022-04-29] MEDS: CENTRAL LINE FLUSH 10 ML IV PUSH ×3 (05:32→21:27)
[2022-04-29 06:01] LABS: Alveolar/Arterial O2 Gradient 238.1 mmHg; Base Excess ABG 2.2 mEq/l (+/-2.0); Carboxyhemoglobin 0.5 % THb (0-2.0); Fractional Inspired Oxygen 50 %; HCO3 ABG 27.1 mEq/l (22.0-26.0); Methemoglobin ABG 0.3 %THb (0-1.5); Oxygen Content ABG 23.3 %vol (16.0-22.0); Oxygen Saturation ABG 94.3 % (95.0-100.0); Oxyhemoglobin 93.4 % THb (90.0-100.0); PCO2 ABG 42.9 mmHg (35.0-45.0); PO2 ABG 70.1 mmHg (80.0-100.0); Reduced Hemoglobin 5.8 %THb (0-5.0); Total Hemoglobin 17.8 g/dL (12.0-18.0); pH ABG 7.419 (7.350-7.450)
[2022-04-29 06:02] LABS: Arterial Blood Gas Ventilator rate 18 /MIN; Device VENTILATOR; Modified Allen's Test Pass; Site Drawn LEFT RADIAL
[2022-04-29 06:03] LABS: Arterial Blood Gas PEEP 5 cmH2O; Arterial Blood Gas Tidal Volume 500 ml; Arterial Blood Gas Vent Mode CMV
[2022-04-29 06:34] LABS: Basophils Percent Auto 0.2 % (0.2-1.2); Hematocrit 35.4 % (42.0-52.0); Hemoglobin 11.5 g/dL (14.0-18.0); Immature Granulocyte Absolute 0.11 K/mm3 (0.00-0.031); Immature Granulocyte Percent A 0.6 % (0-0.5); Lymphocytes Absolute Auto 0.24 K/mm3 (0.9-3.2); Lymphocytes Percent Auto 1.4 % (18.3-44.2); Mean Corpuscular HGB Conc 32.5 g/dl (32-36); Mean Corpuscular Hemoglobin 29.9 pg (26-34); Mean Corpuscular Volume 91.9 fl (80-100); Mean Platelet Volume 10.2 fl (7.4-10.4); Monocytes Absolute Auto 0.6 K/mm3 (0.1-0.6); Monocytes Percent Auto 3.5 % (2.6-8.5); Neutrophils Percent Auto 94.3 % (45.5-73.1); Platelet Count Result 285 k/mm3 (150-375); Red Blood Count 3.85 M/mm3 (4.6-6.20); Red Cell Distribution Width 15.6 % (11.5-14.5)
[2022-04-29 06:46] LABS: Alanine Aminotransferase 59 U/L (6-50); Albumin Level 3.2 g/dL (3.5-5.1); Alkaline Phosphatase 54 U/L (38-126); Anion Gap 13 mmol/L (8-16); Aspartate Amino Transferase 38 U/L (17-59); Bilirubin,Total 1.2 mg/dL (0.2-1.3); Blood Urea Nitrogen 38 mg/dL (9-20); Calcium 7.8 mg/dL (8.4-10.2); Carbon Dioxide 27 mmol/L (22-30); Chloride 95 mmol/L (98-107); Estimated CRCL calculation 44 ml/min; Estimated Glomerular Filt Rate 45; Glucose 249 mg/dL (65-110); Potassium 3.8 mmol/L (3.4-5.0); Sodium 135 mmol/L (137-145)
[2022-04-29] MEDS: MIDAZOLAM 100MG/NS 100ML(*CRX) 100 MG/100 ML BAG IV CONT (08:16)
[2022-04-29] MEDS: MINERAL OIL/WHITE PETROLATUM OINTMENT 1 APPLIC EACH EYE ×2 (09:08→21:27)
[2022-04-29] MEDS: FUROSEMIDE INJ 40 MG/4 ML VIAL IV PUSH (09:08)
[2022-04-29] MEDS: PANTOPRAZOLE SODIUM IV 40 MG VIAL IV PUSH ×2 (09:08→22:50)
--- NOTE | 2022-04-29 09:10 | PM.IMPN ---
Progress Note: A&P Assessment and Plan (1) Hemoptysis: Code(s): R04.2 - Hemoptysis Status: Acute Assessment and Plan: INR not supratherapeutic for atrial fibrillation but will hold due to hemoptysis. S/P vitamin k correction. No more episodes since intubated. Unable to get CTA to rule out due to creatinine. Unable to participate to do V/Q scan. Will continue to monitor. -Continue to hold warfarin (2) Respiratory failure with hypoxia: Code(s): J96.91 - Respiratory failure, unspecified with hypoxia Status: Acute Assessment and Plan: COPD versus pulmonary edema versus pneumonia. -Continue diuresis with furosemide -Continue treatment of pneumonia with levofloxacin and vancomycin -Holding COPD inhaler - umeclidinium due to intubation -Wean oxygen on ventilator as tolerated . (3) Pneumonia: Code(s): J18.9 - Pneumonia, unspecified organism Status: Acute Assessment and Plan: Continue treatment with vancomycin and levofloxacin for now. MRSA swab sent. Urine legionella and urine pneumococcal pending. (4) Acute exacerbation of chronic obstructive airways disease: Code(s): J44.1 - Chronic obstructive pulmonary disease with (acute) exacerbation Status: Acute Assessment and Plan: Holding umeclinidium due to intubation at this time. (5) CHF (congestive heart failure): Code(s): I50.9 - Heart failure, unspecified Status: Acute Assessment and Plan: Echo with EF 40-45% severe RV enlargement and RV systolic dysfunction, biatrial enlargement, atrial fibrillation. -Continue furosemide (6) Hypotension: Code(s): I95.9 - Hypotension, unspecified Status: Acute Assessment and Plan: Continue norepinephrine as needed. Continue diuresis for volume overload. Pneumonia appears to be adequately treated at this time. -Continue levofloxacin and vancomycin -Continue furosemide (7) Coffee ground emesis: Code(s): K92.0 - Hematemesis Status: Acute Assessment and Plan: Appears to have resolved. Continue PPI BID. (8) Atrial fibrillation: Code(s): I48.91 - Unspecified atrial fibrillation Status: Acute Assessment and Plan: Warfarin held due to hemoptysis. Restarted amiodarone. Subjective Date/time seen: 04/29/22 16:10 Patient opened his eyes to voice. Review of Systems Review of Systems: ROS unobtainable: Yes unobtainable due to endotracheal tube Exam Narrative: GENERAL: NAD, cooperative HEENT: Normocephalic, atraumatic, OGT with tube feeds NECK: Supple CV: Normal S1, S2, RRR, No MRG RESP: Coarse breath sounds bilaterally, No crackles, wheezes or rhonchi. Abdomen: Soft, non-tender, non-distended EXTREMITIES: Warm and well perfused, no clubbing, cyanosis, edema. SKIN: warm, dry and intact. NEURO:Intubated and sedated. Opens eyes to voice. Objective Data Vital Signs Vital Signs: Vital Signs - 24 hr 04/28/22 16:17 04/28/22 16:17 04/28/22 16:17 Temperature Pulse Rate 70 70 Respiratory Rate 18 18 Blood Pressure 104/70 Pulse Oximetry Oxygen Delivery Fraction of Inspired Oxygen 04/28/22 16:15 04/28/22 16:16 04/28/22 16:44 Temperature 36.8 C 36.8 C Pulse Rate 71 70 Respiratory Rate 18 18 Blood Pressure 104/70 99/55 L Pulse Oximetry 93 93 Oxygen Delivery Fraction of Inspired Oxygen 04/28/22 16:44 04/28/22 17:52 04/28/22 17:50 Temperature 36.7 C Pulse Rate 75 68 Respiratory Rate 18 Blood Pressure 99/55 L Pulse Oximetry 94 93 Oxygen Delivery Mechanical Ventilation Fraction of Inspired Oxygen 50 04/28/22 18:00 04/28/22 18:01 04/28/22 18:24 Temperature 36.6 C 36.6 C Pulse Rate 64 63 Respiratory Rate 18 18 Blood Pressure 105/63 95/57 L Pulse Oximetry 94 94 Oxygen Delivery Fraction of Inspired Oxygen 04/28/22 18:24 04/28/22 18:
[2022-04-29] MEDS: AMIODARONE HCL 200 MG TABLET PO (10:04)
--- NOTE | 2022-04-29 16:57 | WPDINTPN ---
Progress Note: A&P Assessment and Plan (1) Respiratory failure with hypoxia: Code(s): J96.91 - Respiratory failure, unspecified with hypoxia Status: Acute Assessment and Plan: Acute respiratory failure with hypoxemia associated with hemoptysis. He has pneumonia, community acquired, and is on antibiotics including Levaquin 750 mg/day and Vancomycin to cover these suspected pathogens.? He is on IV Solu-Medrol, albuterol, and has been able to weaned from 80% oxygen to 50%.? His peak airway pressures are low.? We will continue to wean FiO2, treat with antibiotics, monitor hemoptysis which is improving.? Less hemoptysis. His NG tube showed coffee-ground so it is possible that he had stress gastritis and aspirated into his lungs.? When he coughed it appeared he was having hemoptysis. His H/H is stabilizing, Apr 29 - 11.5/35.4. plan:?continue antibiotics - Levaquin and Vancomycin, IV steroids, stress ulcer prophylaxis, mechanical ventilation with weaning [id number] is now 50%. Wean as tolerated, and no plans for bronchoscopy. Hemoptysis has resolved. If hemoptysis recurs, get chest CT to localize the source and consider bronchoscopy to control. He has a femoral triple lumen catheter placed for hypotension, and is getting norepinephrine 15 mcg/min to support BP. His INR was elevated due to Coumadin which he is on for atrial fibrillation. continue TF with Yoselin 1.2 per industrial arts public school teacher recommendations. Repeat chemistries, monitor Na+, H/H. Has biventricular dysfunction, may have more problems than appeared at admission. His pulmonary hypertension is chronic and may have an acute component. (2) COPD (chronic obstructive pulmonary disease): Code(s): J44.9 - Chronic obstructive pulmonary disease, unspecified Status: Acute Assessment and Plan: Known COPD, uses O2 at night, no CPAP and does not use inhalers. He has been on O2 several years at night, followed at [facility] mainly with cardiac disease. He will need out patient follow up, and he can be followed here if he wants since he lives at [facility] which is close to [facility]. Needs Home O2 before discharge. May need O2 with exertion which is new for him. ? (3) Hemoptysis: Code(s): R04.2 - Hemoptysis Status: Acute Assessment and Plan: This was present before admission, has improved. With his (+) coffee grounds on NG, the hemoptysis may be due to aspiration of blood from stomach and use of Coumadin for atrial fib. He is on PPI. Will start TF which will help to decrease gastric acid. He did not have excessive rbc on his urinalysis. He does not have a history of a collagen vascular disease. MICHAEL sent, consider pulmonary renal syndromes associated with vasculitis. (4) Pneumonia: Code(s): J18.9 - Pneumonia, unspecified organism Status: Acute Assessment and Plan: Community-acquired pneumonia, infiltrate mainly on the left side, WBC 17K, mech ventilation AC mode rate? 18 x 500 now 50%, PEEP 5 Continue antibiotics, check urine antigens, blood cultures. He has no sputum to send, scant secretions. (5) Atrial fibrillation: Code(s): I48.91 - Unspecified atrial fibrillation Status: Acute Assessment and Plan: His atrial fibrillation with a controlled rate in the 70s.? He was on Coumadin at home for his atrial fib.? His Coumadin is being held because of his hemoptysis.? Will repeat Protime tomorrow. (6) Hypotension: Code(s): I95.9 - Hypotension, unspecified Status: Acute Assessment and Plan: Blood pressure has been low since 04/28; central line was placed in the right femoral vein
[2022-04-30] VITALS (31 sets, daily range): BP systolic 121–156; BP diastolic 61–103; PULSE 62–93; RESP 12–20; TEMP 36.3–36.8; O2SAT 69–94
[2022-04-30 00:55] LABS: Glucose Point of Care 263 mg/dl (65-105)
[2022-04-30] MEDS: methylPREDNISolone SOD SUCC 125 MG VIAL 60 MG IV PUSH ×4 (01:04→17:51)
[2022-04-30] MEDS: ALBUTEROL SULFATE NEB 2.5 MG/3 ML INH 5 MG INHALATION ×4 (02:21→20:07)
[2022-04-30] MEDS: IPRATROPIUM BR 0.02% INH SOLN 0.5 MG/2.5 ML VIAL INHALATION ×4 (02:21→20:07)
[2022-04-30] MEDS: NOREPINEPHRINE 8 MG/D5W 250 ML 8 MG/250 ML BAG 28.13 MG IV CONT ×2 (04:04→12:26)
[2022-04-30] MEDS: CENTRAL LINE FLUSH 10 ML IV PUSH ×3 (04:06→21:23)
[2022-04-30 04:59] LABS: Alveolar/Arterial O2 Gradient 244.2 mmHg; Base Excess ABG 4.8 mEq/l (+/-2.0); Carboxyhemoglobin 0.4 % THb (0-2.0); Fractional Inspired Oxygen 50 %; HCO3 ABG 29.8 mEq/l (22.0-26.0); Methemoglobin ABG 0.1 %THb (0-1.5); Oxygen Content ABG 16.8 %vol (16.0-22.0); Oxygen Saturation ABG 92.1 % (95.0-100.0); Oxyhemoglobin 90.4 % THb (90.0-100.0); PCO2 ABG 45.4 mmHg (35.0-45.0); PO2 ABG 61.2 mmHg (80.0-100.0); PO2 FiO2 Ratio Arterial Blood 1.22 %; Reduced Hemoglobin 9.1 %THb (0-5.0); Total Hemoglobin 13.2 g/dL (12.0-18.0); pH ABG 7.435 (7.350-7.450)
[2022-04-30 05:00] LABS: Arterial Blood Gas PEEP 5 cmH2O; Arterial Blood Gas Tidal Volume 500 ml; Arterial Blood Gas Vent Mode CMV; Arterial Blood Gas Ventilator rate 18 /MIN; Device VENTILATOR; Modified Allen's Test Pass; Site Drawn LEFT RADIAL
[2022-04-30 06:27] LABS: Basophils Percent Auto 0.3 % (0.2-1.2); Immature Granulocyte Absolute 0.18 K/mm3 (0.00-0.031); Immature Granulocyte Percent A 1.4 % (0-0.5); Lymphocytes Absolute Auto 0.32 K/mm3 (0.9-3.2); Lymphocytes Percent Auto 2.5 % (18.3-44.2); Mean Corpuscular HGB Conc 32.4 g/dl (32-36); Mean Corpuscular Hemoglobin 29.7 pg (26-34); Mean Corpuscular Volume 91.6 fl (80-100); Mean Platelet Volume 10.5 fl (7.4-10.4); Monocytes Absolute Auto 0.4 K/mm3 (0.1-0.6); Monocytes Percent Auto 3.2 % (2.6-8.5); Neutrophils Absolute Auto 11.9 K/mm3 (1.3-6.7); Neutrophils Percent Auto 92.6 % (45.5-73.1); Nucleated Red Blood Cells Perc 0.2 % (0.0-0.2); Platelet Count Result 299 k/mm3 (150-375); Red Blood Count 4.04 M/mm3 (4.6-6.20); Red Cell Distribution Width 15.8 % (11.5-14.5); White Blood Count 12.8 K/mm3 (4.5-10.0)
[2022-04-30 06:40] LABS: Alanine Aminotransferase 49 U/L (6-50); Albumin Level 3.2 g/dL (3.5-5.1); Alkaline Phosphatase 52 U/L (38-126); Anion Gap 14 mmol/L (8-16); Aspartate Amino Transferase 25 U/L (17-59); Bilirubin,Total 1.1 mg/dL (0.2-1.3); Blood Urea Nitrogen 40 mg/dL (9-20); Calcium 7.9 mg/dL (8.4-10.2); Carbon Dioxide 28 mmol/L (22-30); Chloride 96 mmol/L (98-107); Estimated CRCL calculation 55 ml/min; Estimated Glomerular Filt Rate 59; Glucose 324 mg/dL (65-110); Potassium 3.9 mmol/L (3.4-5.0); Sodium 138 mmol/L (137-145)
[2022-04-30] MEDS: PANTOPRAZOLE SODIUM IV 40 MG VIAL IV PUSH ×2 (07:56→21:22)
[2022-04-30] MEDS: MINERAL OIL/WHITE PETROLATUM OINTMENT 1 APPLIC EACH EYE ×2 (07:57→21:22)
[2022-04-30] MEDS: FUROSEMIDE INJ 40 MG/4 ML VIAL IV PUSH (07:57)
[2022-04-30] MEDS: AMIODARONE HCL 200 MG TABLET PO (07:57)
--- NOTE | 2022-04-30 09:19 | PM.IMPN ---
Progress Note: A&P Assessment and Plan (1) Hemoptysis: Code(s): R04.2 - Hemoptysis Status: Acute Assessment and Plan: INR not supratherapeutic for atrial fibrillation but held due to hemoptysis. S/P vitamin k correction on admission. No more episodes since intubated. Unable to get CTA to rule out due to creatinine. Unable to participate to do V/Q scan. -Continue to hold warfarin (2) Respiratory failure with hypoxia: Code(s): J96.91 - Respiratory failure, unspecified with hypoxia Status: Acute Assessment and Plan: COPD versus pulmonary edema versus pneumonia. -Continue diuresis with furosemide -Continue treatment of pneumonia with levofloxacin and vancomycin -Holding COPD inhaler - umeclidinium due to intubation -Wean oxygen on ventilator as tolerated -2/2 blood cultures haemophilus influenzae should be covered levofloxacin and vancomycin. -Management per ICU . (3) Pneumonia: Code(s): J18.9 - Pneumonia, unspecified organism Status: Acute Assessment and Plan: Continue treatment with vancomycin and levofloxacin for now. MRSA swab pending. Urine legionella and urine pneumococcal pending. (4) Acute exacerbation of chronic obstructive airways disease: Code(s): J44.1 - Chronic obstructive pulmonary disease with (acute) exacerbation Status: Acute Assessment and Plan: Holding umeclinidium due to intubation at this time. (5) CHF (congestive heart failure): Code(s): I50.9 - Heart failure, unspecified Status: Acute Assessment and Plan: Echo with EF 40-45% severe RV enlargement and RV systolic dysfunction, biatrial enlargement, atrial fibrillation. -Continue furosemide (6) Hypotension: Code(s): I95.9 - Hypotension, unspecified Status: Acute Assessment and Plan: Continue norepinephrine as needed. Continue diuresis for volume overload. Pneumonia appears to be adequately treated at this time. -Continue levofloxacin and vancomycin -Continue furosemide (7) Coffee ground emesis: Code(s): K92.0 - Hematemesis Status: Acute Assessment and Plan: Appears to have resolved. Continue PPI BID. (8) Atrial fibrillation: Code(s): I48.91 - Unspecified atrial fibrillation Status: Acute Assessment and Plan: Warfarin held due to hemoptysis. Takes amiodarone at home. Continue. Subjective Date/time seen: 04/30/22 18:19 Patient intubated and sedated. Review of Systems Review of Systems: ROS unobtainable: Yes unobtainable due to endotracheal tube Exam Narrative: GENERAL: NAD, cooperative HEENT: Normocephalic, atraumatic, OGT with tube feeds NECK: Supple CV: Normal S1, S2, RRR, No MRG RESP: Coarse breath sounds bilaterally, No crackles, wheezes or rhonchi. Abdomen: Soft, non-tender, non-distended EXTREMITIES: Warm and well perfused, no clubbing, cyanosis, edema. SKIN: warm, dry and intact. NEURO:Intubated and sedated. Opens eyes to voice. Objective Data Vital Signs Vital Signs: Vital Signs - 24 hr 04/29/22 19:22 04/29/22 20:08 04/29/22 20:22 Temperature Pulse Rate 68 68 74 Respiratory Rate 18 Blood Pressure 133/84 133/84 Pulse Oximetry Oxygen Delivery Fraction of Inspired Oxygen 04/29/22 21:11 04/29/22 21:15 04/29/22 21:25 Temperature Pulse Rate 68 74 70 Respiratory Rate 18 18 Blood Pressure Pulse Oximetry 94 Oxygen Delivery Mechanical Ventilation Fraction of Inspired Oxygen 50 04/29/22 20:00 04/29/22 20:00 04/29/22 20:00 Temperature Pulse Rate 63 63 Respiratory Rate 18 Blood Pressure Pulse Oximetry 94 Oxygen Delivery Mechanical Ventilation Fraction of Inspired Oxygen 50 50 04/29/22 20:00 04/29/22 21:55 04/29/22 21:55 Temperature 36.4 C 36.4 C Pulse Rate 63 63 63 Respiratory Rate 18 18 Blood Pressure 119/66 139/89
--- NOTE | 2022-04-30 09:33 | WPDINTPN ---
Progress Note: A&P Assessment and Plan (1) Haemophilus influenzae septicemia: Code(s): A41.3 - Sepsis due to Hemophilus influenzae Status: Acute Assessment and Plan: This is a new diagnosis today, however this is based on a blood culture from April 27 which was finalized today. He is on norepinephrine so this is consistent with septic shock. This is beta lactamase negative Haemophilus influenzae. He is on Levaquin which generally should cover this. He is on vancomycin which will not cover this Gram-negative bacilli. Beta lactams are preferred. His urine was negative for organisms. I will send a sputum today. The source of his Haemophilus bacteremia is likely his pneumonia. plan: I will order ceftriaxone to cover Haemophilus influenza bacteremia with septic shock; Continue Levaquin and vancomycin. Increase PEEP to 10, try to wean FiO2. Continue blood pressure support with norepinephrine. Continue tube feeds Vital 1.2. Lantus started 15 units today with a q.4 hours sliding scale short-acting insulin. Hemoglobin A1c was sent. He is on Solu-Medrol 60 mg IV q.6, will reduce this to 40 mg Q 8 hours which may also help his hyperglycemia. Hemoptysis has resolved. I will remove this diagnosis. He has a femoral triple lumen catheter placed for hypotension, and is getting norepinephrine 15 mcg/min to support BP. His INR was elevated due to Coumadin which he is on for atrial fibrillation. continue TF with Yoselin 1.2 per pie crimping machine operator recommendations. Repeat chemistries, monitor Na+, H/H. Has biventricular dysfunction, may have more problems than appeared at admission. His pulmonary hypertension is chronic and may have an acute component. (2) Respiratory failure with hypoxia: Code(s): J96.91 - Respiratory failure, unspecified with hypoxia Status: Acute Assessment and Plan: Acute respiratory failure with hypoxemia associated with hemoptysis, and hte hemoptysis has resolved. He has pneumonia, community acquired, and is on antibiotics including Levaquin 750 mg/day and Vancomycin to cover suspected pathogens.? Adding Rocephin for Haemophilus influenzae in the blood culture finalized 04/30. Will decrease IV Solu-Medrol to 40 mg Q 8 hours, continue albuterol, and has been able to weaned from 80% oxygen to 50% but today is 60%. Will increase PEEP to 10. We will continue to wean FiO2, treat with antibiotics. (3) COPD (chronic obstructive pulmonary disease): Code(s): J44.9 - Chronic obstructive pulmonary disease, unspecified Status: Acute Assessment and Plan: Known COPD, uses O2 at night, no CPAP and does not use inhalers. He has been on O2 several years at night, followed at [facility] in [place] mainly with cardiac disease. He will need out patient follow up, and he can be followed here if he wants since he lives at [facility] which is close to [facility]. Needs Home O2 before discharge. May need O2 with exertion which is new for him. ? (4) Pneumonia: Code(s): J18.9 - Pneumonia, unspecified organism Status: Acute Assessment and Plan: Community-acquired pneumonia, infiltrate mainly on the left side, WBC down, 11.9, better. mech ventilation AC mode rate? 18 x 500 now 60%, PEEP 5 Change ot Rocephin, continue levaquin and vanco; urine antigens are still pending, blood cultures are positive for Haemophilus influenzae. Will send sputum if he has any more. It has been very scant. (5) Atrial fibrillation: Code(s): I48.91 - Unspecified atrial fibrillation Status: Acute Assessment and Plan: His atrial fibrillation with a controlled rate in the 70s.? He was on Coumadin at home for his atrial fib.? His Coumadi
[2022-04-30 10:19] LABS: Hemoglobin A1C 6.4 % (<5.7)
[2022-04-30] MEDS: TOLNAFTATE 1% POWDER 45 GM BTL 1 APPLIC TOPICAL ×2 (12:22→21:22)
[2022-04-30] MEDS: FENTANYL 2,500MCG/NS250ML(*CRX 2,500 MCG/250 ML BAG 7.5 MCG IV CONT (12:27)
[2022-04-30 12:50] LABS: Glucose Point of Care 339 mg/dl (65-105)
[2022-04-30] MEDS: INSULIN GLARGINE (*BKC) 100 UNITS/ML 15 UNITS SUB-Q (13:14)
[2022-04-30 13:29] LABS: Basophils Percent Auto 0.3 % (0.2-1.2); Hematocrit 37.2 % (42.0-52.0); Hemoglobin 12.2 g/dL (14.0-18.0); Immature Granulocyte Absolute 0.21 K/mm3 (0.00-0.031); Immature Granulocyte Percent A 1.8 % (0-0.5); Lymphocytes Absolute Auto 0.27 K/mm3 (0.9-3.2); Lymphocytes Percent Auto 2.3 % (18.3-44.2); Mean Corpuscular HGB Conc 32.8 g/dl (32-36); Mean Corpuscular Hemoglobin 29.7 pg (26-34); Mean Corpuscular Volume 90.5 fl (80-100); Mean Platelet Volume 9.9 fl (7.4-10.4); Monocytes Absolute Auto 0.5 K/mm3 (0.1-0.6); Monocytes Percent Auto 4.3 % (2.6-8.5); Neutrophils Absolute Auto 10.8 K/mm3 (1.3-6.7); Neutrophils Percent Auto 91.3 % (45.5-73.1); Nucleated Red Blood Cells Perc 0.2 % (0.0-0.2); Platelet Count Result 317 k/mm3 (150-375); Red Blood Count 4.11 M/mm3 (4.6-6.20); Red Cell Distribution Width 15.9 % (11.5-14.5); White Blood Count 11.9 K/mm3 (4.5-10.0)
[2022-04-30 13:40] LABS: Anion Gap 6 mmol/L (8-16); Blood Urea Nitrogen 44 mg/dL (9-20); Calcium 7.8 mg/dL (8.4-10.2); Carbon Dioxide 32 mmol/L (22-30); Chloride 97 mmol/L (98-107); Estimated CRCL calculation 51 ml/min; Estimated Glomerular Filt Rate 53; Glucose 334 mg/dL (65-110); Sodium 135 mmol/L (137-145)
[2022-04-30 15:31] LABS: Vancomycin Trough 11.3 ug/mL (10.0-20.0)
[2022-04-30] MEDS: MIDAZOLAM 100MG/NS 100ML(*CRX) 100 MG/100 ML BAG IV CONT (15:41)
[2022-04-30] MEDS: INSULIN ASPART (*BKC) 100 UNITS/ML SUB-Q (17:54)
[2022-04-30 17:59] LABS: Glucose Point of Care 365 mg/dl (65-105)
[2022-04-30] MEDS: methylPREDNISolone SOD SUCC 40 MG VIAL IV PUSH (21:22)
[2022-04-30 23:59] LABS: Glucose Point of Care 264 mg/dl (65-105)
[2022-05-01] VITALS (35 sets, daily range): BP systolic 96–143; BP diastolic 60–92; PULSE 63–91; RESP 18–188; TEMP 36.4–37.2; O2SAT 91–100
[2022-05-01] MEDS: INSULIN ASPART (*BKC) 100 UNITS/ML SUB-Q ×4 (02:10→18:28)
[2022-05-01] MEDS: ALBUTEROL SULFATE NEB 2.5 MG/3 ML INH 5 MG INHALATION ×4 (02:18→20:16)
[2022-05-01] MEDS: IPRATROPIUM BR 0.02% INH SOLN 0.5 MG/2.5 ML VIAL INHALATION ×4 (02:18→20:16)
[2022-05-01 04:26] LABS: Basophils Absolute Auto 0.1 K/mm3 (0.0-0.1); Basophils Percent Auto 0.6 % (0.2-1.2); Hematocrit 38.2 % (42.0-52.0); Hemoglobin 12.5 g/dL (14.0-18.0); Immature Granulocyte Absolute 0.51 K/mm3 (0.00-0.031); Immature Granulocyte Percent A 4.1 % (0-0.5); Lymphocytes Absolute Auto 0.47 K/mm3 (0.9-3.2); Lymphocytes Percent Auto 3.8 % (18.3-44.2); Mean Corpuscular HGB Conc 32.7 g/dl (32-36); Mean Corpuscular Hemoglobin 29.6 pg (26-34); Mean Corpuscular Volume 90.3 fl (80-100); Mean Platelet Volume 10.3 fl (7.4-10.4); Monocytes Absolute Auto 0.5 K/mm3 (0.1-0.6); Monocytes Percent Auto 3.8 % (2.6-8.5); Neutrophils Percent Auto 87.7 % (45.5-73.1); Nucleated Red Blood Cells Perc 0.2 % (0.0-0.2); Platelet Count Result 309 k/mm3 (150-375); Red Blood Count 4.23 M/mm3 (4.6-6.20); Red Cell Distribution Width 15.9 % (11.5-14.5); White Blood Count 12.5 K/mm3 (4.5-10.0)
[2022-05-01 04:40] LABS: Alanine Aminotransferase 42 U/L (6-50); Albumin Level 3.1 g/dL (3.5-5.1); Alkaline Phosphatase 49 U/L (38-126); Anion Gap 11 mmol/L (8-16); Aspartate Amino Transferase 30 U/L (17-59); Bilirubin,Total 0.9 mg/dL (0.2-1.3); Blood Urea Nitrogen 41 mg/dL (9-20); Calcium 7.9 mg/dL (8.4-10.2); Carbon Dioxide 32 mmol/L (22-30); Chloride 95 mmol/L (98-107); Estimated CRCL calculation 55 ml/min; Estimated Glomerular Filt Rate 59; Glucose 262 mg/dL (65-110); Potassium 3.9 mmol/L (3.4-5.0); Sodium 138 mmol/L (137-145)
[2022-05-01] MEDS: methylPREDNISolone SOD SUCC 40 MG VIAL IV PUSH ×3 (05:11→20:50)
[2022-05-01] MEDS: CENTRAL LINE FLUSH 10 ML IV PUSH ×5 (05:12→20:51)
[2022-05-01 05:31] LABS: Alveolar/Arterial O2 Gradient 391.7 mmHg; Base Excess ABG 6.2 mEq/l (+/-2.0); Carboxyhemoglobin 0.4 % THb (0-2.0); Fractional Inspired Oxygen 70 %; HCO3 ABG 30.4 mEq/l (22.0-26.0); Methemoglobin ABG 0.1 %THb (0-1.5); Oxygen Content ABG 17.7 %vol (16.0-22.0); Oxygen Saturation ABG 93.1 % (95.0-100.0); Oxyhemoglobin 91.3 % THb (90.0-100.0); PCO2 ABG 42.3 mmHg (35.0-45.0); PO2 ABG 61.9 mmHg (80.0-100.0); PO2 FiO2 Ratio Arterial Blood 0.88 %; Reduced Hemoglobin 8.2 %THb (0-5.0); Total Hemoglobin 13.8 g/dL (12.0-18.0); pH ABG 7.475 (7.350-7.450)
[2022-05-01 05:33] LABS: Arterial Blood Gas PEEP 5 cmH2O; Arterial Blood Gas Tidal Volume 500 ml; Arterial Blood Gas Vent Mode CMV; Arterial Blood Gas Ventilator rate 18 /MIN; Device VENTILATOR; Modified Allen's Test Unable to perform; Site Drawn RIGHT RADIAL
[2022-05-01 08:12] LABS: Myoglobin, Urine <27 mcg/L (<28)
[2022-05-01] MEDS: NOREPINEPHRINE 8 MG/D5W 250 ML 8 MG/250 ML BAG 18.75 MG IV CONT (08:25)
[2022-05-01] MEDS: MINERAL OIL/WHITE PETROLATUM OINTMENT 1 APPLIC EACH EYE ×2 (09:28→20:49)
[2022-05-01] MEDS: FUROSEMIDE INJ 40 MG/4 ML VIAL IV PUSH (09:29)
[2022-05-01] MEDS: PANTOPRAZOLE SODIUM IV 40 MG VIAL IV PUSH ×2 (09:29→20:49)
[2022-05-01] MEDS: TOLNAFTATE 1% POWDER 45 GM BTL 1 APPLIC TOPICAL ×2 (09:30→20:50)
[2022-05-01] MEDS: AMIODARONE HCL 200 MG TABLET PO (09:30)
--- NOTE | 2022-05-01 10:07 | PM.IMPN ---
Progress Note: A&P Assessment and Plan (1) Hemoptysis: Code(s): R04.2 - Hemoptysis Status: Acute Assessment and Plan: INR not supratherapeutic for atrial fibrillation but held due to hemoptysis. S/P vitamin k correction on admission. No more episodes since intubated. Unable to get CTA to rule out due to creatinine. Unable to participate to do V/Q scan. -Continue to hold warfarin (2) Respiratory failure with hypoxia: Code(s): J96.91 - Respiratory failure, unspecified with hypoxia Status: Acute Assessment and Plan: COPD versus pulmonary edema versus pneumonia. -Continue diuresis with furosemide -Continue treatment of pneumonia with levofloxacin and vancomycin -Holding COPD inhaler - umeclidinium due to intubation -Wean oxygen on ventilator as tolerated -2/2 blood cultures haemophilus influenzae should be covered levofloxacin and vancomycin. -Management per ICU . (3) Pneumonia: Code(s): J18.9 - Pneumonia, unspecified organism Status: Acute Assessment and Plan: Continue treatment with vancomycin and levofloxacin for now. MRSA swab pending. Urine legionella and urine pneumococcal pending. (4) Acute exacerbation of chronic obstructive airways disease: Code(s): J44.1 - Chronic obstructive pulmonary disease with (acute) exacerbation Status: Acute Assessment and Plan: Holding umeclinidium due to intubation at this time. (5) CHF (congestive heart failure): Code(s): I50.9 - Heart failure, unspecified Status: Acute Assessment and Plan: Echo with EF 40-45% severe RV enlargement and RV systolic dysfunction, biatrial enlargement, atrial fibrillation. -Continue furosemide (6) Hypotension: Code(s): I95.9 - Hypotension, unspecified Status: Acute Assessment and Plan: Continue norepinephrine as needed. Continue diuresis for volume overload. Pneumonia appears to be adequately treated at this time. -Continue levofloxacin and vancomycin -Continue furosemide (7) Coffee ground emesis: Code(s): K92.0 - Hematemesis Status: Acute Assessment and Plan: Appears to have resolved. Continue PPI BID. (8) Atrial fibrillation: Code(s): I48.91 - Unspecified atrial fibrillation Status: Acute Assessment and Plan: Warfarin held due to hemoptysis. Takes amiodarone at home. Continue. Subjective Date/time seen: 05/01/22 09:07 Patient says she feels better. But says she has concerns about weakness from sitting in the bed and not moving. Patient had presyncopal episode when attempting to stand with PT. Exam Narrative: GENERAL: NAD, cooperative HEENT: Normocephalic, atraumatic, OGT with tube feeds NECK: Supple CV: Normal S1, S2, RRR, No MRG RESP: Coarse breath sounds bilaterally, No crackles, wheezes or rhonchi. Abdomen: Soft, non-tender, non-distended EXTREMITIES: Warm and well perfused, no clubbing, cyanosis, edema. SKIN: warm, dry and intact. NEURO:Intubated and sedated Objective Data Vital Signs Vital Signs: Vital Signs - 24 hr 04/30/22 20:00 04/30/22 20:00 04/30/22 20:00 Temperature 36.6 C Pulse Rate 77 77 Respiratory Rate 18 Blood Pressure 136/91 H Pulse Oximetry 93 Oxygen Delivery Fraction of Inspired Oxygen 50 04/30/22 20:00 04/30/22 20:08 04/30/22 20:08 Temperature Pulse Rate 65 73 73 Respiratory Rate 18 18 Blood Pressure Pulse Oximetry 90 94 Oxygen Delivery Mechanical Ventilation Mechanical Ventilation Fraction of Inspired Oxygen 70 60 04/30/22 22:00 04/30/22 22:00 05/01/22 00:00 Temperature 36.7 C Pulse Rate 79 79 68 Respiratory Rate 18 Blood Pressure 156/91 H Pulse Oximetry 91 Oxygen Delivery Fraction of Inspired Oxygen 05/01/22 00:00 05/01/22 00:00 05/01/22 00:00 Temperature 36.6 C Pulse Rate 66 63 Respiratory Rate 18
--- NOTE | 2022-05-01 10:45 | PCFNICU ---
ICU Rounding Note: Rounds done with RN Lala Rene Pt current nutrition is Vital 1.2 @ 70 ml (goal) TF was held overnight due to residuals >300 ml. Reglan is being started. Also starting Miralax because of no BM. Nutrition recommendation: Restart tube feeding. Current recommendations are to not hold tube feedings for gastric residuals <500 ml absent other signs of intolerance. Reglan is appropriate. Last recorded weight is 111.1 kg. Bowel Motility: No BM charted Labs Reviewed: Hgb 12.5, Hct 38.2, Alb 3.1, BUN 41, Creat 1.2, Glu 262, HgA1C 6.4% Meds Noted: Vanco, levophed 9.35 Skin: WNL Additional Notes: Coffee grounds emesis found to be likely related to ingestion of hemoptysis. Following daily in ICU rounds. Will monitor in ICU rounds and reassessing every Sunday and Sunday. .
[2022-05-01 10:52] LABS: Glucose Point of Care 275 mg/dl (65-105)
[2022-05-01] MEDS: INSULIN GLARGINE (*BKC) 100 UNITS/ML 30 UNITS SUB-Q (11:30)
[2022-05-01] MEDS: METOCLOPRAMIDE HCL INJ 10 MG/2 ML VIAL IV PUSH ×2 (11:31→17:11)
[2022-05-01] MEDS: LIDOCAINE HCL 1% PF INJ 5 ML VIAL INFILTRATE (12:00)
--- NOTE | 2022-05-01 12:26 | WPDINTPN ---
Progress Note: A&P Assessment and Plan (1) Haemophilus influenzae septicemia: Code(s): A41.3 - Sepsis due to Hemophilus influenzae Status: Acute Assessment and Plan: He is on norepinephrine so this is consistent with septic shock. This is beta lactamase negative Haemophilus influenzae. He is on Levaquin which generally should cover this. He is on vancomycin which will not cover this Gram-negative bacilli. Beta lactams are preferred. His urine was negative for organisms. Sputum sent. The source of his Haemophilus bacteremia is likely his pneumonia. May need bronchoscopy at some point. plan: Ceftriaxone to cover Haemophilus influenza bacteremia with septic shock; Continue Levaquin and vancomycin. Increase PEEP to 10, try to wean FiO2. Continue blood pressure support with norepinephrine. Continue tube feeds Vital 1.2. Lantus started 15 units today with a q.4 hours sliding scale short-acting insulin. Hemoglobin A1c was sent. He is on Solu-Medrol 60 mg IV q.6, will reduce this to 40 mg Q 8 hours which may also help his hyperglycemia. Hemoptysis has returned. I took the diagnosis away, now may have to re-add it. PICC line needed so he can get his femoral triple lumen catheter out. This was placed for hypotension with norepinephrine. His INR was elevated due to Coumadin which he is on for atrial fibrillation. Continue TF with Yoselin 1.2 per glass technician recommendations. Repeat chemistries, monitor Na+, H/H. Has biventricular dysfunction, may have more problems than appeared at admission. His pulmonary hypertension is chronic and may have an acute component. (2) Respiratory failure with hypoxia: Code(s): J96.91 - Respiratory failure, unspecified with hypoxia Status: Acute Assessment and Plan: Acute respiratory failure with hypoxemia associated with hemoptysis, and hte hemoptysis has resolved. He has pneumonia, community acquired, and is on antibiotics including Levaquin 750 mg/day and Vancomycin to cover suspected pathogens.? Adding Rocephin for Haemophilus influenzae in the blood culture finalized 04/30. Will decrease IV Solu-Medrol to 40 mg Q 8 hours, continue albuterol, and has been able to weaned from 80% oxygen to 50% but today is 60%. Will increase PEEP to 10. We will continue to wean FiO2, treat with antibiotics. (3) COPD (chronic obstructive pulmonary disease): Code(s): J44.9 - Chronic obstructive pulmonary disease, unspecified Status: Acute Assessment and Plan: Known COPD, uses O2 at night, no CPAP and does not use inhalers. He has been on O2 several years at night, followed at [facility] mainly with cardiac disease. He will need out patient follow up, and he can be followed here if he wants since he lives at [facility] which is close to [facility]. Needs Home O2 before discharge. May need O2 with exertion which is new for him. ? (4) Pneumonia: Code(s): J18.9 - Pneumonia, unspecified organism Status: Acute Assessment and Plan: Community-acquired pneumonia, infiltrate mainly on the left side, WBC down, mech ventilation AC mode rate? 18 x 500 now 60%, PEEP 5 Change ot Rocephin, continue levaquin and vanco; urine antigens are still pending, blood cultures are positive for Haemophilus influenzae. Will send sputum if he has any more. It has been very scant. (5) Atrial fibrillation: Code(s): I48.91 - Unspecified atrial fibrillation Status: Acute Assessment and Plan: His atrial fibrillation with a controlled rate in the 70s.? He was on Coumadin at home for his atrial fib.? His Coumadin is being held because of his hemoptysis.? Will repeat Protime tomorrow.
[2022-05-01 13:06] LABS: Glucose Point of Care 303 mg/dl (65-105)
[2022-05-01] MEDS: cefTRIAXone 2 GM in SODIUM CHLORIDE 0.9% IV 100 ML 200 ML IVPB (13:15)
[2022-05-01] MEDS: FENTANYL 2,500MCG/NS250ML(*CRX 2,500 MCG/250 ML BAG 10 MCG IV CONT (17:10)
[2022-05-01 18:29] LABS: Glucose Point of Care 241 mg/dl (65-105)
[2022-05-01] MEDS: NOREPINEPHRINE 8 MG/D5W 250 ML 8 MG/250 ML BAG 16.88 MG IV CONT (23:03)
[2022-05-01 23:43] LABS: Glucose Point of Care 188 mg/dl (65-105)
[2022-05-02] VITALS (77 sets, daily range): BP systolic 101–132; BP diastolic 55–86; PULSE 66–100; RESP 18; TEMP 36.7–37.3; O2SAT 89–96
[2022-05-02] MEDS: METOCLOPRAMIDE HCL INJ 10 MG/2 ML VIAL IV PUSH ×4 (00:06→17:12)
[2022-05-02] MEDS: MIDAZOLAM 100MG/NS 100ML(*CRX) 100 MG/100 ML BAG IV CONT (01:23)
[2022-05-02] MEDS: IPRATROPIUM BR 0.02% INH SOLN 0.5 MG/2.5 ML VIAL INHALATION ×3 (02:26→14:18)
[2022-05-02] MEDS: ALBUTEROL SULFATE NEB 2.5 MG/3 ML INH 5 MG INHALATION ×3 (02:26→14:18)
[2022-05-02 05:16] LABS: Basophils Percent Auto 0.1 % (0.2-1.2); Eosinophils Percent Auto 0.1 % (0-4.4); Hematocrit 37.3 % (42.0-52.0); Hemoglobin 12.4 g/dL (14.0-18.0); Immature Granulocyte Absolute 1.01 K/mm3 (0.00-0.031); Immature Granulocyte Percent A 7.4 % (0-0.5); Lymphocytes Absolute Auto 0.55 K/mm3 (0.9-3.2); Lymphocytes Percent Auto 4.1 % (18.3-44.2); Mean Corpuscular HGB Conc 33.2 g/dl (32-36); Mean Corpuscular Hemoglobin 29.3 pg (26-34); Mean Corpuscular Volume 88.2 fl (80-100); Mean Platelet Volume 10.4 fl (7.4-10.4); Monocytes Absolute Auto 0.9 K/mm3 (0.1-0.6); Monocytes Percent Auto 6.4 % (2.6-8.5); Neutrophils Absolute Auto 11.1 K/mm3 (1.3-6.7); Neutrophils Percent Auto 81.9 % (45.5-73.1); Nucleated Red Blood Cells Perc 0.2 % (0.0-0.2); Platelet Count Result 342 k/mm3 (150-375); Red Blood Count 4.23 M/mm3 (4.6-6.20); Red Cell Distribution Width 16.2 % (11.5-14.5); White Blood Count 13.6 K/mm3 (4.5-10.0)
[2022-05-02 05:25] LABS: Alveolar/Arterial O2 Gradient 465.8 mmHg; Base Excess ABG 8.3 mEq/l (+/-2.0); Fractional Inspired Oxygen 80 %; HCO3 ABG 31.6 mEq/l (22.0-26.0); Methemoglobin ABG 0.1 %THb (0-1.5); Oxygen Saturation ABG 94.4 % (95.0-100.0); Oxyhemoglobin 92.8 % THb (90.0-100.0); PO2 ABG 63.7 mmHg (80.0-100.0); Reduced Hemoglobin 7.1 %THb (0-5.0)
[2022-05-02 05:27] LABS: Device VENTILATOR; Modified Allen's Test Pass; Site Drawn RIGHT RADIAL; pH ABG 7.527 (7.350-7.450)
[2022-05-02 05:28] LABS: Arterial Blood Gas PEEP 10 cmH2O; Arterial Blood Gas Tidal Volume 550 ml; Arterial Blood Gas Vent Mode CMV; Arterial Blood Gas Ventilator rate 18 /MIN
[2022-05-02] MEDS: CENTRAL LINE FLUSH 10 ML IV PUSH ×6 (06:01→22:19)
[2022-05-02] MEDS: methylPREDNISolone SOD SUCC 40 MG VIAL IV PUSH ×3 (06:01→22:19)
[2022-05-02 06:13] LABS: Anisocytosis 1+ (NORMAL); Ovalocytes 1+ (NORMAL); Platelet Estimate Adequate (Adequate)
[2022-05-02 06:22] LABS: Alanine Aminotransferase 34 U/L (6-50); Albumin Level 2.9 g/dL (3.5-5.1); Alkaline Phosphatase 44 U/L (38-126); Anion Gap 11 mmol/L (8-16); Aspartate Amino Transferase 23 U/L (17-59); Bilirubin,Total 0.6 mg/dL (0.2-1.3); Blood Urea Nitrogen 49 mg/dL (9-20); Calcium 7.4 mg/dL (8.4-10.2); Carbon Dioxide 30 mmol/L (22-30); Chloride 97 mmol/L (98-107); Estimated CRCL calculation 54 ml/min; Estimated Glomerular Filt Rate 59; Glucose 309 mg/dL (65-110); Potassium 3.9 mmol/L (3.4-5.0); Sodium 138 mmol/L (137-145)
[2022-05-02] MEDS: INSULIN ASPART (*BKC) 100 UNITS/ML SUB-Q ×5 (06:24→20:13)
[2022-05-02 06:51] LABS: Schistocytes None Seen (NORMAL)
[2022-05-02] MEDS: FUROSEMIDE INJ 40 MG/4 ML VIAL IV PUSH (08:45)
[2022-05-02] MEDS: AMIODARONE HCL 200 MG TABLET PO (08:45)
[2022-05-02] MEDS: PANTOPRAZOLE SODIUM IV 40 MG VIAL IV PUSH ×2 (08:46→20:14)
[2022-05-02] MEDS: MINERAL OIL/WHITE PETROLATUM OINTMENT 1 APPLIC EACH EYE ×2 (08:46→20:14)
[2022-05-02] MEDS: polyethylene glycoL 3350 17 GM POWD.PACK FEED TUBE (08:46)
[2022-05-02] MEDS: TOLNAFTATE 1% POWDER 45 GM BTL 1 APPLIC TOPICAL ×2 (08:47→20:14)
[2022-05-02 08:55] LABS: Glucose Point of Care 279 mg/dl (65-105)
[2022-05-02] MEDS: INSULIN GLARGINE (*BKC) 100 UNITS/ML 30 UNITS SUB-Q (08:56)
--- NOTE | 2022-05-02 09:13 | WPDINTPN ---
Progress Note: A&P Assessment and Plan (1) Septic shock: Code(s): A41.9 - Sepsis, unspecified organism; R65.21 - Severe sepsis with septic shock Status: Acute Assessment and Plan: Septic shock secondary to Haemophilus influenzae bacteremia and pneumonia Continue Levophed infusion Conservative IV fluid strategy in light of severe respiratory failure Some other shock is likely secondary to sedation also Currently not on any IV fluids He is currently on IV Rocephin, Levaquin and vancomycin -I will discontinue vancomycin 05/02 (2) Haemophilus influenzae septicemia: Code(s): A41.3 - Sepsis due to Hemophilus influenzae Status: Acute Assessment and Plan: See above (3) Hemoptysis: Code(s): R04.2 - Hemoptysis Status: Acute Assessment and Plan: Secondary to to pneumonia, coughing, rupture of a small blood vessel, patient was also on Coumadin which contributed -Coumadin was reversed with vitamin K and Kcentra -check coags (4) Respiratory failure with hypoxia: Code(s): J96.91 - Respiratory failure, unspecified with hypoxia Status: Acute Assessment and Plan: Continue mechanical ventilation He is currently on 70% FiO2 and 10 of PEEP ABG reviewed -decrease tidal volume to 450 mL He is currently on Solu-Medrol 40 mg q.8 hours and I will continue to wean it down Continue bronchodilators (5) Pneumonia: Code(s): J18.9 - Pneumonia, unspecified organism Status: Acute Assessment and Plan: Secondary to Haemophilus influenzae See above (6) COPD (chronic obstructive pulmonary disease): Code(s): J44.9 - Chronic obstructive pulmonary disease, unspecified Status: Acute Assessment and Plan: See above (7) Biventricular CHF (congestive heart failure): Code(s): I50.82 - Biventricular heart failure Status: Acute Assessment and Plan: He has low LVEF 40%-45% and severely enlarged RV with RV diastolic dysfunction, severe pulmonary hypertension with regurgitant tricuspid valve flow. This was noted on his echo.??His pulmonary hypertension is chronic, and he may have an acute component as well. He uses O2 at night, may need O2 in the day. He has COPD. His creat was too high to get a CTA to evaluate for PE. He was fully anticoagulated on admission.?Now that his creat is normal, will order CTA chest to rule out pulmonary embolism. Will give additional fluids today to minimize risk further (8) Acute kidney injury: Code(s): N17.9 - Acute kidney failure, unspecified Status: Acute Assessment and Plan: 04/27 - BUN was 24 and creat was 1.3, BUN and creat increased on Apr 28 higher BUN 34 and creat 2.0. Creatinine now improved to 1.2 Likely secondary to sepsis, hypotension or underperfusion with Right heart failure. His urine was dark, concentrated.? Levophed requirement is down Will give additional IV fluids today to minimize risk as patient will receive IV contrast (9) Atrial fibrillation: Code(s): I48.91 - Unspecified atrial fibrillation Status: Acute Assessment and Plan: Controlled ventricular rate On amiodarone (10) Hyperglycemia: Code(s): R73.9 - Hyperglycemia, unspecified Status: Acute Assessment and Plan: Continue Lantus Increase sliding scale to q.4 hours and high scale Anticipate improvement as the steroid dose is decreased Plan DVT prophylaxis: SCDs Stress ulcer prophylaxis: Protonix Nutrition: Tube feeds Code Status: Full code Critical Care Time Spent: 40 minutes Due to a high probability of clinically significant, life threatening deterioration, the patient required my highest level of preparedness to intervene emergently and I personally spent this critical care time directly and personally managing the patient. This critical care time included obtaining a history; examining the patient; pulse oximetry; ordering and review of studies; arranging urgent treat
--- NOTE | 2022-05-02 10:02 | PM.IMPN ---
Progress Note: A&P Assessment and Plan (1) Hemoptysis: Code(s): R04.2 - Hemoptysis Status: Acute Assessment and Plan: INR not supratherapeutic for atrial fibrillation but held due to hemoptysis. S/P vitamin k correction on admission. No more episodes since intubated. CTA showed no PE. -Continue to hold warfarin (2) Respiratory failure with hypoxia: Code(s): J96.91 - Respiratory failure, unspecified with hypoxia Status: Acute Assessment and Plan: COPD versus pulmonary edema versus pneumonia. -Continue diuresis with furosemide -Continue treatment of pneumonia with levofloxacin and vancomycin -Holding COPD inhaler - umeclidinium due to intubation -Wean oxygen on ventilator as tolerated -2/2 blood cultures haemophilus influenzae should be covered levofloxacin and vancomycin. -Management per ICU . (3) Pneumonia: Code(s): J18.9 - Pneumonia, unspecified organism Status: Acute Assessment and Plan: Treatment with ceftriaxone, vancomycin and levofloxacin for now. MRSA swab negative. Urine legionella and urine pneumococcal pending. (4) Acute exacerbation of chronic obstructive airways disease: Code(s): J44.1 - Chronic obstructive pulmonary disease with (acute) exacerbation Status: Acute Assessment and Plan: Holding umeclinidium due to intubation at this time. (5) CHF (congestive heart failure): Code(s): I50.9 - Heart failure, unspecified Status: Acute Assessment and Plan: Echo with EF 40-45% severe RV enlargement and RV systolic dysfunction, biatrial enlargement, atrial fibrillation. -Continue furosemide (6) Hypotension: Code(s): I95.9 - Hypotension, unspecified Status: Acute Assessment and Plan: Continue norepinephrine as needed. Continue diuresis for volume overload. Pneumonia appears to be adequately treated at this time. -Continue ceftriaxone, levofloxacin and vancomycin -Continue furosemide (7) Coffee ground emesis: Code(s): K92.0 - Hematemesis Status: Acute Assessment and Plan: Appears to have resolved. Continue PPI BID. (8) Atrial fibrillation: Code(s): I48.91 - Unspecified atrial fibrillation Status: Acute Assessment and Plan: Warfarin held due to hemoptysis. Takes amiodarone at home. Continue. Subjective Date/time seen: 05/02/22 18:02 Patient intubated and sedated. Review of Systems Review of Systems: ROS unobtainable: Yes unobtainable due to endotracheal tube Exam Narrative: GENERAL: NAD, cooperative HEENT: Normocephalic, atraumatic, OGT with tube feeds NECK: Supple CV: regular rate, No MRG RESP: Coarse breath sounds bilaterally, No crackles, wheezes or rhonchi. Abdomen: Soft, non-tender, non-distended EXTREMITIES: Warm and well perfused, no clubbing, cyanosis, edema. SKIN: warm, dry and intact. NEURO:Intubated and sedated Objective Data Vital Signs Vital Signs: Vital Signs - 24 hr 05/01/22 18:37 05/01/22 18:38 05/01/22 20:16 Temperature Pulse Rate 84 83 82 Respiratory Rate 18 18 18 Blood Pressure Pulse Oximetry Oxygen Delivery Fraction of Inspired Oxygen 05/01/22 20:18 05/01/22 20:36 05/01/22 20:00 Temperature 37.2 C Pulse Rate 82 79 80 Respiratory Rate 18 18 Blood Pressure 111/70 Pulse Oximetry 92 91 Oxygen Delivery Mechanical Ventilation Fraction of Inspired Oxygen 80 05/01/22 20:00 05/01/22 20:00 05/01/22 20:00 Temperature Pulse Rate 83 Respiratory Rate Blood Pressure Pulse Oximetry 91 Oxygen Delivery Mechanical Ventilation Fraction of Inspired Oxygen 80 80 05/01/22 22:00 05/01/22 22:00 05/01/22 23:03 Temperature Pulse Rate 80 76 73 Respiratory Rate 18 Blood Pressure 115/77 96/60 L Pulse Oximetry 91 Oxygen Delivery Fraction of Inspired Oxygen 05/01/22 23:28 04/09
[2022-05-02 10:48] LABS: INR 2.5
[2022-05-02 10:49] LABS: Fibrinogen 485 mg/dl (215-510)
--- NOTE | 2022-05-02 11:50 | PCNFU ---
Nutrition Follow-Up Complete: Inadequate Oral Intake as related to mechanical vent as evidenced by NPO. Goal: Meet estimated nutritional needs Patient is progressing towards goal. We will continue current goal. Pt current nutrition is Vital AF 1.2 at 50 ml/hr over 22 hours. Nutrition recommendation: 70 ml/hr goal rate. Last recorded weight is 111.8 kg, down from 113.5 kg on admit. Bowel Motility:No BM reported. Miralax added 05/02 Labs Reviewed:Glu 309,BUN 49, Hct 37.3,Hgb 12.4 Meds Noted:Levophed, Solu Medrol, Lantus, Vancomycin, Versed, Fentanyl, Reglan, Protonix. Skin: WNL Additional Notes: Patient remains on mechanical vent and tube feedings of Vital AF 1.2 at 50 ml/hr. Residuals improving with Reglan. Recommending goal rate at 70 ml/hr which will providing 1848 kcals/116 gms protein/1249 ml water. Free water flush 30 ml q 4 hours. Agree with diet orders. Will monitor in ICU rounds and reassessing every Sunday and Sunday.
[2022-05-02 12:02] LABS: Glucose Point of Care 258 mg/dl (65-105)
[2022-05-02] MEDS: cefTRIAXone 2 GM in SODIUM CHLORIDE 0.9% IV 100 ML 200 ML IVPB (12:22)
[2022-05-02] MEDS: FENTANYL 2,500MCG/NS250ML(*CRX 2,500 MCG/250 ML BAG 12.5 MCG IV CONT (13:17)
[2022-05-02 16:14] LABS: Glucose Point of Care 232 mg/dl (65-105)
[2022-05-02 19:49] LABS: Glucose Point of Care 223 mg/dl (65-105)
[2022-05-02] MEDS: NOREPINEPHRINE 8 MG/D5W 250 ML 8 MG/250 ML BAG 7.5 MG IV CONT (20:12)
[2022-05-03] VITALS (27 sets, daily range): BP systolic 94–126; BP diastolic 57–87; PULSE 67–93; RESP 18; TEMP 36.8–37.3; O2SAT 93–97
[2022-05-03 00:12] LABS: Glucose Point of Care 229 mg/dl (65-105)
[2022-05-03] MEDS: METOCLOPRAMIDE HCL INJ 10 MG/2 ML VIAL IV PUSH ×4 (00:14→17:37)
[2022-05-03] MEDS: INSULIN ASPART (*BKC) 100 UNITS/ML SUB-Q ×5 (00:14→20:02)
[2022-05-03] MEDS: IPRATROPIUM BR 0.02% INH SOLN 0.5 MG/2.5 ML VIAL INHALATION ×4 (02:28→20:25)
[2022-05-03] MEDS: ALBUTEROL SULFATE NEB 2.5 MG/3 ML INH 5 MG INHALATION ×4 (02:28→20:25)
[2022-05-03 04:49] LABS: Basophils Percent Auto 0.1 % (0.2-1.2); Hemoglobin 12.1 g/dL (14.0-18.0); Immature Granulocyte Percent A 11.8 % (0-0.5); Lymphocytes Absolute Auto 0.48 K/mm3 (0.9-3.2); Lymphocytes Percent Auto 3.8 % (18.3-44.2); Mean Corpuscular HGB Conc 31.8 g/dl (32-36); Mean Corpuscular Hemoglobin 29.4 pg (26-34); Mean Corpuscular Volume 92.2 fl (80-100); Mean Platelet Volume 10.5 fl (7.4-10.4); Monocytes Absolute Auto 0.9 K/mm3 (0.1-0.6); Monocytes Percent Auto 6.8 % (2.6-8.5); Neutrophils Absolute Auto 9.9 K/mm3 (1.3-6.7); Neutrophils Percent Auto 77.5 % (45.5-73.1); Nucleated Red Blood Cells Perc 0.2 % (0.0-0.2); Platelet Count Result 271 k/mm3 (150-375); Red Blood Count 4.12 M/mm3 (4.6-6.20); Red Cell Distribution Width 16.3 % (11.5-14.5); White Blood Count 12.7 K/mm3 (4.5-10.0)
[2022-05-03 05:11] LABS: Alanine Aminotransferase 31 U/L (6-50); Albumin Level 2.9 g/dL (3.5-5.1); Alkaline Phosphatase 41 U/L (38-126); Anion Gap 6 mmol/L (8-16); Aspartate Amino Transferase 19 U/L (17-59); Bilirubin,Total 0.5 mg/dL (0.2-1.3); Blood Urea Nitrogen 58 mg/dL (9-20); Calcium 7.3 mg/dL (8.4-10.2); Carbon Dioxide 32 mmol/L (22-30); Chloride 99 mmol/L (98-107); Estimated CRCL calculation 50 ml/min; Estimated Glomerular Filt Rate 53; Glucose 191 mg/dL (65-110); Magnesium 2.7 mg/dL (1.6-2.3); Phosphorus 4.3 mg/dL (2.5-4.5); Potassium 4.4 mmol/L (3.4-5.0); Sodium 137 mmol/L (137-145)
[2022-05-03 05:20] LABS: Alveolar/Arterial O2 Gradient 299.2 mmHg; Base Excess ABG 8.9 mEq/l (+/-2.0); Carboxyhemoglobin 0.1 % THb (0-2.0); Fractional Inspired Oxygen 60 %; HCO3 ABG 34.5 mEq/l (22.0-26.0); Methemoglobin ABG 0.3 %THb (0-1.5); Oxygen Content ABG 21.9 %vol (16.0-22.0); Oxygen Saturation ABG 95.4 % (95.0-100.0); Oxyhemoglobin 94.3 % THb (90.0-100.0); PCO2 ABG 49.5 mmHg (35.0-45.0); PO2 ABG 74.2 mmHg (80.0-100.0); PO2 FiO2 Ratio Arterial Blood 1.24 %; Reduced Hemoglobin 5.3 %THb (0-5.0); Total Hemoglobin 16.5 g/dL (12.0-18.0); pH ABG 7.461 (7.350-7.450)
[2022-05-03 05:21] LABS: Arterial Blood Gas PEEP 10 cmH2O; Arterial Blood Gas Tidal Volume 450 ml; Arterial Blood Gas Vent Mode CMV; Arterial Blood Gas Ventilator rate 18 /MIN; Device VENTILATOR; Modified Allen's Test Pass; Site Drawn RIGHT RADIAL
[2022-05-03 05:24] LABS: Anisocytosis 1+ (NORMAL); Burr Cells 1+ (NORMAL); Ovalocytes 1+ (NORMAL); Platelet Estimate Adequate (Adequate)
[2022-05-03 05:25] LABS: Schistocytes None Seen (NORMAL)
[2022-05-03] MEDS: CENTRAL LINE FLUSH 10 ML IV PUSH ×6 (05:45→20:03)
[2022-05-03] MEDS: FENTANYL 2,500MCG/NS250ML(*CRX 2,500 MCG/250 ML BAG 12.5 MCG IV CONT (09:00)
[2022-05-03] MEDS: MIDAZOLAM 100MG/NS 100ML(*CRX) 100 MG/100 ML BAG IV CONT (09:00)
[2022-05-03] MEDS: INSULIN GLARGINE (*BKC) 100 UNITS/ML 40 UNITS SUB-Q (09:06)
[2022-05-03] MEDS: polyethylene glycoL 3350 17 GM POWD.PACK FEED TUBE (09:07)
[2022-05-03] MEDS: PANTOPRAZOLE SODIUM IV 40 MG VIAL IV PUSH ×2 (09:08→20:01)
[2022-05-03] MEDS: methylPREDNISolone SOD SUCC 40 MG VIAL IV PUSH ×2 (09:08→20:01)
[2022-05-03] MEDS: MINERAL OIL/WHITE PETROLATUM OINTMENT 1 APPLIC EACH EYE ×2 (09:08→20:00)
[2022-05-03] MEDS: AMIODARONE HCL 200 MG TABLET PO (09:08)
[2022-05-03] MEDS: TOLNAFTATE 1% POWDER 45 GM BTL 1 APPLIC TOPICAL ×2 (09:09→20:01)
[2022-05-03 09:27] LABS: Glucose Point of Care 267 mg/dl (65-105)
[2022-05-03 09:27] LABS: ANA Cascade Screen Negative (Negative)
--- NOTE | 2022-05-03 10:14 | ECG_ITS ---
Measurements Intervals [place] Rate: 95 P: OK: 0 QRS: 4 QRSD: 135 T: -12 QT: 414 QTc: 523 Interpretive Statements ATRIAL FIBRILLATION INTRAVENTRICULAR CONDUCTION DELAY [130+ ms QRS DURATION] COMPARED TO ECG 04/28/2022 10:23:18 NO SIGNIFICANT CHANGES Electronically Signed On 05-03-2022 13:17:15 CDT by Edwin Nieves M.D.
[2022-05-03] MEDS: LACTULOSE 20 GM/30 ML UDC PO (10:35)
--- NOTE | 2022-05-03 11:07 | PCFNICU ---
ICU Rounding Note: Pt current nutrition is Vital AF 1.2 at 60 ml/hr. Last recorded weight is 111.1 kg,down from 113.5 kg on admit. Bowel Motility:No BM Labs Reviewed:Glu 191, GFR 53, BUN 58, Alb 2.9,Hct 38.0,Hgb 12.1 Meds Noted: Levophed, Solu Medrol, Lantus, Vancomycin, Versed, Fentanyl, Reglan, Protonix, Lactulose. Skin: WNL Additional Notes: Patient remains on mechanical vent and tube feedings of Vital AF 1.2 at 70 ml/hr this is goal rate. Patient is tolerating tube feedings. Lactulose added today 2/2 to no BM since admit. Agree with diet orders. Following daily in ICU rounds. Will monitor in ICU rounds and reassessing every Sunday and Sunday. .
--- NOTE | 2022-05-03 11:15 | WPDINTPN ---
Progress Note: A&P Assessment and Plan (1) Septic shock: Code(s): A41.9 - Sepsis, unspecified organism; R65.21 - Severe sepsis with septic shock Status: Acute Assessment and Plan: Septic shock secondary to Haemophilus influenzae bacteremia and pneumonia Off Levophed, since 05/03/2022 morning Conservative IV fluid strategy in light of severe respiratory failure Sedation could also cause some hypotension shock like symptoms Currently not on any IV fluids He is currently on IV Rocephin, Levaquin -discontinued vancomycin on 05/02 -05/03 repeat blood culture (2) Haemophilus influenzae septicemia: Code(s): A41.3 - Sepsis due to Hemophilus influenzae Status: Acute Assessment and Plan: See above (3) Hemoptysis: Code(s): R04.2 - Hemoptysis Status: Acute Assessment and Plan: Secondary to to pneumonia, coughing, rupture of a small blood vessel, patient was also on Coumadin which contributed -Coumadin was reversed with vitamin K and Kcentra -repeat INR was 2.5 (4) Respiratory failure with hypoxia: Code(s): J96.91 - Respiratory failure, unspecified with hypoxia Status: Acute Assessment and Plan: Continue mechanical ventilation He is currently on 70% FiO2 and 10 of PEEP ABG reviewed -decrease tidal volume to 450 mL He is currently on Solu-Medrol 40 mg q.8 hours and I will continue to wean it down Continue bronchodilators (5) Pneumonia: Code(s): J18.9 - Pneumonia, unspecified organism Status: Acute Assessment and Plan: Secondary to Haemophilus influenzae See above (6) COPD (chronic obstructive pulmonary disease): Code(s): J44.9 - Chronic obstructive pulmonary disease, unspecified Status: Acute Assessment and Plan: See above (7) Biventricular CHF (congestive heart failure): Code(s): I50.82 - Biventricular heart failure Status: Acute Assessment and Plan: He has low LVEF 40%-45% and severely enlarged RV with RV diastolic dysfunction, severe pulmonary hypertension with regurgitant tricuspid valve flow. This was noted on his echo.??His pulmonary hypertension is chronic, and he may have an acute component as well. He uses O2 at night, may need O2 in the day. He has COPD. His creat was too high to get a CTA to evaluate for PE. He was fully anticoagulated on admission.? 05/01 CTA chest: Bilateral dependent airspace consolidation which may represent atelectasis and/or pneumonia. No evidence of pulmonary embolism (8) Acute kidney injury: Code(s): N17.9 - Acute kidney failure, unspecified Status: Acute Assessment and Plan: 04/27 - BUN was 24 and creat was 1.3, BUN and creat increased on Apr 28 higher BUN 34 and creat 2.0. Creatinine now improved to 1.30 Likely secondary to sepsis, hypotension or underperfusion with Right heart failure. His urine was dark, concentrated.? Levophed requirement is down Patient was given additional IV fluids on 05/01 after the CTA (9) Atrial fibrillation: Code(s): I48.91 - Unspecified atrial fibrillation Status: Acute Assessment and Plan: Controlled ventricular rate On amiodarone (10) Hyperglycemia: Code(s): R73.9 - Hyperglycemia, unspecified Status: Acute Assessment and Plan: Continue Lantus Increase sliding scale to q.4 hours and high scale Anticipate improvement as the steroid dose is decreased Plan DVT prophylaxis: SCDs Stress ulcer prophylaxis: Protonix Nutrition: Tube feeds Code Status: Full code Critical Care Time Spent: 36 minutes Due to a high probability of clinically significant, life threatening deterioration, the patient required my highest level of preparedness to intervene emergently and I personally spent this critical care time directly and personally managing the patient. This critical care time included obtaining a history; examining the patient; pulse oximetry; ordering and review of studies; arra
[2022-05-03] MEDS: cefTRIAXone 2 GM in SODIUM CHLORIDE 0.9% IV 100 ML 200 ML IVPB (12:57)
[2022-05-03 13:49] LABS: Glucose Point of Care 274 mg/dl (65-105)
--- NOTE | 2022-05-03 15:55 | PM.IMPN ---
Progress Note: A&P Assessment and Plan (1) Hemoptysis: Code(s): R04.2 - Hemoptysis Status: Acute Assessment and Plan: INR not supratherapeutic for atrial fibrillation but held due to hemoptysis. S/P vitamin k correction on admission. No more episodes since intubated. CTA showed no PE. -Continue to hold warfarin (2) Respiratory failure with hypoxia: Code(s): J96.91 - Respiratory failure, unspecified with hypoxia Status: Acute Assessment and Plan: COPD versus pulmonary edema versus pneumonia. -Continue diuresis with furosemide -Continue treatment of pneumonia with levofloxacin and vancomycin -Holding COPD inhaler - umeclidinium due to intubation -Wean oxygen on ventilator as tolerated -2/2 blood cultures haemophilus influenzae should be covered levofloxacin and vancomycin. -Management per ICU 05/03/2022 interval history: patient with septic shock secondary to pneumonia due to Haemophilus influenzae bacteremia, patient is being treated with ceftriaxone and Levaquin, patient clinically symptoms are improving is off Levophed patient is seen by pastrycook's assistant will appreciate and will continue to monitor . (3) Pneumonia: Code(s): J18.9 - Pneumonia, unspecified organism Status: Acute Assessment and Plan: Treatment with ceftriaxone, vancomycin and levofloxacin for now. MRSA swab negative. Urine legionella and urine pneumococcal pending. (4) Acute exacerbation of chronic obstructive airways disease: Code(s): J44.1 - Chronic obstructive pulmonary disease with (acute) exacerbation Status: Acute Assessment and Plan: Holding umeclinidium due to intubation at this time. (5) CHF (congestive heart failure): Code(s): I50.9 - Heart failure, unspecified Status: Acute Assessment and Plan: Echo with EF 40-45% severe RV enlargement and RV systolic dysfunction, biatrial enlargement, atrial fibrillation. -Continue furosemide (6) Hypotension: Code(s): I95.9 - Hypotension, unspecified Status: Acute Assessment and Plan: Continue norepinephrine as needed. Continue diuresis for volume overload. Pneumonia appears to be adequately treated at this time. -Continue ceftriaxone, levofloxacin and vancomycin -Continue furosemide (7) Coffee ground emesis: Code(s): K92.0 - Hematemesis Status: Acute Assessment and Plan: Appears to have resolved. Continue PPI BID. (8) Atrial fibrillation: Code(s): I48.91 - Unspecified atrial fibrillation Status: Acute Assessment and Plan: Warfarin held due to hemoptysis. Takes amiodarone at home. Continue. Subjective Date/time seen: 05/03/22 15:55 COPD versus pulmonary edema versus pneumonia. -Continue diuresis with furosemide -Continue treatment of pneumonia with levofloxacin and vancomycin -Holding COPD inhaler - umeclidinium due to intubation -Wean oxygen on ventilator as tolerated -2/2 blood cultures haemophilus influenzae should be covered levofloxacin and vancomycin. -Management per ICU 05/03/2022 interval history: patient with septic shock secondary to pneumonia due to Haemophilus influenzae bacteremia, patient is being treated with ceftriaxone and Levaquin, patient clinically symptoms are improving is off Levophed patient is seen by pastrycook's assistant will appreciate and will continue to monitor Review of Systems Review of Systems: ROS unobtainable: Yes unobtainable due to endotracheal tube Objective Data Vital Signs Vital Signs: Vital Signs - 24 hr 05/02/22 16:00 05/02/22 16:51 05/02/22 16:00 Temperature 98.7 F Pulse Rate 81 83 71 Respiratory Rate 18 Blood Pressure 108/73 Pulse Oximetry 94 93 Oxygen Delivery Mechanical Ventilation Fraction of Inspired Oxygen 70 05/02/22 16:00 05/02/22 16:00 05/02/22 17:56 Temperature Pulse Rate 83 94 Respiratory Rate 18 B
[2022-05-03 16:01] LABS: Glucose Point of Care 291 mg/dl (65-105)
[2022-05-03 20:22] LABS: Glucose Point of Care 233 mg/dl (65-105)
[2022-05-04] VITALS (87 sets, daily range): BP systolic 96–139; BP diastolic 61–89; PULSE 71–103; RESP 18–24; TEMP 36.7–37.2; O2SAT 90–98
[2022-05-04] MEDS: INSULIN ASPART (*BKC) 100 UNITS/ML SUB-Q ×6 (00:06→23:58)
[2022-05-04] MEDS: METOCLOPRAMIDE HCL INJ 10 MG/2 ML VIAL IV PUSH ×5 (00:07→23:49)
[2022-05-04 00:21] LABS: Glucose Point of Care 232 mg/dl (65-105)
[2022-05-04] MEDS: ALBUTEROL SULFATE NEB 2.5 MG/3 ML INH 5 MG INHALATION ×4 (02:44→20:36)
[2022-05-04] MEDS: IPRATROPIUM BR 0.02% INH SOLN 0.5 MG/2.5 ML VIAL INHALATION ×4 (02:44→20:37)
[2022-05-04 04:42] LABS: Alveolar/Arterial O2 Gradient 225.7 mmHg; Base Excess ABG 8.4 mEq/l (+/-2.0); Carboxyhemoglobin 0.3 % THb (0-2.0); Fractional Inspired Oxygen 50 %; HCO3 ABG 35.3 mEq/l (22.0-26.0); Methemoglobin ABG 0.2 %THb (0-1.5); Modified Allen's Test Pass; Oxygen Content ABG 17.1 %vol (16.0-22.0); Oxygen Saturation ABG 91.8 % (95.0-100.0); PCO2 ABG 59.3 mmHg (35.0-45.0); PO2 ABG 64.1 mmHg (80.0-100.0); PO2 FiO2 Ratio Arterial Blood 1.28 %; Reduced Hemoglobin 9.5 %THb (0-5.0); Site Drawn RIGHT RADIAL; Total Hemoglobin 13.5 g/dL (12.0-18.0); pH ABG 7.393 (7.350-7.450)
[2022-05-04 04:43] LABS: Arterial Blood Gas PEEP 10 cmH2O; Arterial Blood Gas Vent Mode CMV; Arterial Blood Gas Ventilator rate 14 /MIN; Device VENTILATOR
[2022-05-04 04:44] LABS: Arterial Blood Gas Tidal Volume 450 ml
[2022-05-04] MEDS: CENTRAL LINE FLUSH 10 ML IV PUSH ×6 (04:51→21:42)
[2022-05-04 05:05] LABS: Glucose Point of Care 219 mg/dl (65-105)
[2022-05-04 05:07] LABS: Hematocrit 37.1 % (42.0-52.0); Hemoglobin 11.8 g/dL (14.0-18.0); Mean Corpuscular HGB Conc 31.8 g/dl (32-36); Mean Corpuscular Volume 91.2 fl (80-100); Mean Platelet Volume 10.4 fl (7.4-10.4); Platelet Count Result 245 k/mm3 (150-375); Red Blood Count 4.07 M/mm3 (4.6-6.20); Red Cell Distribution Width 16.5 % (11.5-14.5); White Blood Count 9.8 K/mm3 (4.5-10.0)
[2022-05-04] MEDS: FENTANYL 2,500MCG/NS250ML(*CRX 2,500 MCG/250 ML BAG 12.5 MCG IV CONT (05:07)
[2022-05-04 06:09] LABS: Anisocytosis 1+ (NORMAL); Atypical Lymphocytes Present; Band Neutrophils Percent 4 % (0-6); Giant Platelets Present; Hypochromasia 1+ (NORMAL); Large Platelets Present; Lymphocytes Absolute Manual 0.58 K/mm3 (1.1-4.5); Metamyelocytes Percent 6 %; Microcytosis 1+ (NORMAL); Monocytes Absolute Manual 1.17 K/mm3 (0.1-0.90); Monocytes Percent Manual 12 % (3-9); Neutrophils Absolute Manual 7.44 K/mm3 (1.3-6.7); Neutrophils Percent Manual 72 % (46-73); Platelet Estimate Adequate (Adequate); Schistocytes 1+ (NORMAL); Total Cells Counted 100
[2022-05-04 06:48] LABS: Alanine Aminotransferase 25 U/L (6-50); Albumin Level 2.8 g/dL (3.5-5.1); Alkaline Phosphatase 40 U/L (38-126); Anion Gap 10 mmol/L (8-16); Aspartate Amino Transferase 18 U/L (17-59); Bilirubin,Total 0.4 mg/dL (0.2-1.3); Blood Urea Nitrogen 62 mg/dL (9-20); Calcium 7.2 mg/dL (8.4-10.2); Carbon Dioxide 33 mmol/L (22-30); Chloride 99 mmol/L (98-107); Estimated CRCL calculation 47 ml/min; Estimated Glomerular Filt Rate 49; Glucose 255 mg/dL (65-110); Phosphorus 4.7 mg/dL (2.5-4.5); Potassium 4.1 mmol/L (3.4-5.0); Sodium 142 mmol/L (137-145)
[2022-05-04 07:07] LABS: Pneumococcal Antigen Urine Not Detected (Not Detected)
[2022-05-04 08:38] LABS: Glucose Point of Care 240 mg/dl (65-105)
[2022-05-04] MEDS: AMIODARONE HCL 200 MG TABLET PO (09:15)
[2022-05-04] MEDS: methylPREDNISolone SOD SUCC 40 MG VIAL 20 MG IV PUSH ×2 (09:16→20:04)
[2022-05-04] MEDS: INSULIN GLARGINE (*BKC) 100 UNITS/ML 48 UNITS SUB-Q (09:16)
[2022-05-04] MEDS: LACTULOSE 20 GM/30 ML UDC PO (09:17)
[2022-05-04] MEDS: PANTOPRAZOLE SODIUM IV 40 MG VIAL IV PUSH ×2 (09:17→20:04)
[2022-05-04] MEDS: MINERAL OIL/WHITE PETROLATUM OINTMENT 1 APPLIC EACH EYE ×2 (09:17→20:04)
[2022-05-04] MEDS: TOLNAFTATE 1% POWDER 45 GM BTL 1 APPLIC TOPICAL ×2 (09:17→20:05)
[2022-05-04] MEDS: polyethylene glycoL 3350 17 GM POWD.PACK FEED TUBE (09:17)
--- NOTE | 2022-05-04 11:29 | PCFNICU ---
ICU Rounding Note: Pt current nutrition is Vital AF 1.2 at 70 ml/hr. Last recorded weight is 115 kg-stable Bowel Motility:No BM reported. Lactulose given yesterday and today. Labs Reviewed:Cr 1.4, BUN 62, GFR 49, Hct 37.1,Hgb 11.8 Meds Noted:Levophed, Solu Medrol, Lantus, Vancomycin, Versed, Fentanyl, Reglan, Protonix, Lactulose, Miralax. Skin: WNL Additional Notes: Patient remains on mechanical vent and tube feedings of Vital AF 1.2 at 70 ml/hr and tolerating per nursing. Free water flush 30 ml q 4 hours. Agree with diet orders. Following daily in ICU rounds. Will monitor in ICU rounds and reassessing every Sunday and Sunday.
[2022-05-04] MEDS: BUMETANIDE INJ 1 MG/4 ML VIAL IV PUSH (11:33)
[2022-05-04 12:18] LABS: Glucose Point of Care 217 mg/dl (65-105)
--- NOTE | 2022-05-04 12:49 | WPDINTPN ---
Progress Note: A&P Assessment and Plan (1) Septic shock: Code(s): A41.9 - Sepsis, unspecified organism; R65.21 - Severe sepsis with septic shock Status: Acute Assessment and Plan: Septic shock secondary to Haemophilus influenzae bacteremia and pneumonia Off Levophed, since 05/03/2022 morning Conservative IV fluid strategy in light of severe respiratory failure Sedation could also cause some hypotension shock like symptoms Currently not on any IV fluids He is currently on IV Rocephin, Levaquin -discontinued vancomycin on 05/02 -05/03 repeat blood culture (2) Haemophilus influenzae septicemia: Code(s): A41.3 - Sepsis due to Hemophilus influenzae Status: Acute Assessment and Plan: See above (3) Hemoptysis: Code(s): R04.2 - Hemoptysis Status: Acute Assessment and Plan: Secondary to to pneumonia, coughing, rupture of a small blood vessel, patient was also on Coumadin which contributed -Coumadin was reversed with vitamin K and Kcentra -repeat INR was 2.5 (4) Respiratory failure with hypoxia: Code(s): J96.91 - Respiratory failure, unspecified with hypoxia Status: Acute Assessment and Plan: Continue mechanical ventilation He is currently on 50% FiO2 and 10 of PEEP ABG reviewed -decrease tidal volume to 450 mL He is currently on Solu-Medrol 40 mg q.8 hours and I will continue to wean it down Continue bronchodilators -thick flanagan-colored ET tube secretions, will add Pulmozyme -will diurese patient (5) Pneumonia: Code(s): J18.9 - Pneumonia, unspecified organism Status: Acute Assessment and Plan: Secondary to Haemophilus influenzae See above (6) COPD (chronic obstructive pulmonary disease): Code(s): J44.9 - Chronic obstructive pulmonary disease, unspecified Status: Acute Assessment and Plan: See above (7) Biventricular CHF (congestive heart failure): Code(s): I50.82 - Biventricular heart failure Status: Acute Assessment and Plan: He has low LVEF 40%-45% and severely enlarged RV with RV diastolic dysfunction, severe pulmonary hypertension with regurgitant tricuspid valve flow. This was noted on his echo.??His pulmonary hypertension is chronic, and he may have an acute component as well. He uses O2 at night, may need O2 in the day. He has COPD. His creat was too high to get a CTA to evaluate for PE. He was fully anticoagulated on admission.? 05/01 CTA chest: Bilateral dependent airspace consolidation which may represent atelectasis and/or pneumonia. No evidence of pulmonary embolism (8) Acute kidney injury: Code(s): N17.9 - Acute kidney failure, unspecified Status: Acute Assessment and Plan: 04/27 - BUN was 24 and creat was 1.3, BUN and creat increased on Apr 28 higher BUN 34 and creat 2.0. Creatinine now 1.40 Likely secondary to sepsis, hypotension or underperfusion with Right heart failure. Off Levophed Patient was given additional IV fluids on 05/01 after the CTA, will continue to monitor renal function possible contrast induced nephropathy (9) Atrial fibrillation: Code(s): I48.91 - Unspecified atrial fibrillation Status: Acute Assessment and Plan: Controlled ventricular rate On amiodarone (10) Hyperglycemia: Code(s): R73.9 - Hyperglycemia, unspecified Status: Acute Assessment and Plan: Continue Lantus Increase sliding scale to q.4 hours and high scale Anticipate improvement as the steroid dose is decreased Plan DVT prophylaxis: SCDs Stress ulcer prophylaxis: Protonix Nutrition: Tube feeds Code Status: Full code Critical Care Time Spent: 33 minutes Due to a high probability of clinically significant, life threatening deterioration, the patient required my highest level of preparedness to intervene emergently and I personally spent this critical care time directly and personally managing the patient. This critical care time includ
[2022-05-04] MEDS: cefTRIAXone 2 GM in SODIUM CHLORIDE 0.9% IV 100 ML 200 ML IVPB (13:24)
[2022-05-04] MEDS: DORNASE ALFA INH SOLN 1 MG/ML 2.5 ML AMP 2.5 MG INHALATION ×2 (13:40→20:37)
[2022-05-04] MEDS: MIDAZOLAM 100MG/NS 100ML(*CRX) 100 MG/100 ML BAG IV CONT (15:30)
[2022-05-04 16:03] LABS: Glucose Point of Care 231 mg/dl (65-105)
--- NOTE | 2022-05-04 17:03 | PM.IMPN ---
Progress Note: A&P Assessment and Plan (1) Hemoptysis: Code(s): R04.2 - Hemoptysis Status: Acute Assessment and Plan: INR not supratherapeutic for atrial fibrillation but held due to hemoptysis. S/P vitamin k correction on admission. No more episodes since intubated. CTA showed no PE. -Continue to hold warfarin (2) Respiratory failure with hypoxia: Code(s): J96.91 - Respiratory failure, unspecified with hypoxia Status: Acute Assessment and Plan: COPD versus pulmonary edema versus pneumonia. -Continue diuresis with furosemide -Continue treatment of pneumonia with levofloxacin and vancomycin -Holding COPD inhaler - umeclidinium due to intubation -Wean oxygen on ventilator as tolerated -2/2 blood cultures haemophilus influenzae should be covered levofloxacin and vancomycin. -Management per ICU 05/04/2022 interval history:?patient with septic shock secondary to pneumonia due to Haemophilus influenzae bacteremia, patient is being treated with ceftriaxone and Levaquin,? patient clinically symptoms are improving is off Levophed patient is seen by director supply and discussed patient clinically symptoms are improved may wean the patient off ventilator tomorrow, and will continue to monitor (3) Pneumonia: Code(s): J18.9 - Pneumonia, unspecified organism Status: Acute Assessment and Plan: Treatment with ceftriaxone, vancomycin and levofloxacin for now. MRSA swab negative. Urine legionella and urine pneumococcal pending. (4) Acute exacerbation of chronic obstructive airways disease: Code(s): J44.1 - Chronic obstructive pulmonary disease with (acute) exacerbation Status: Acute Assessment and Plan: Holding umeclinidium due to intubation at this time. (5) CHF (congestive heart failure): Code(s): I50.9 - Heart failure, unspecified Status: Acute Assessment and Plan: Echo with EF 40-45% severe RV enlargement and RV systolic dysfunction, biatrial enlargement, atrial fibrillation. -Continue furosemide (6) Hypotension: Code(s): I95.9 - Hypotension, unspecified Status: Acute Assessment and Plan: Continue norepinephrine as needed. Continue diuresis for volume overload. Pneumonia appears to be adequately treated at this time. -Continue ceftriaxone, levofloxacin and vancomycin -Continue furosemide (7) Coffee ground emesis: Code(s): K92.0 - Hematemesis Status: Acute Assessment and Plan: Appears to have resolved. Continue PPI BID. (8) Atrial fibrillation: Code(s): I48.91 - Unspecified atrial fibrillation Status: Acute Assessment and Plan: Warfarin held due to hemoptysis. Takes amiodarone at home. Continue. Subjective Date/time seen: 05/04/22 17:03 COPD versus pulmonary edema versus pneumonia.? -Continue diuresis with furosemide -Continue treatment of pneumonia with levofloxacin and vancomycin -Holding COPD inhaler - umeclidinium due to intubation -Wean oxygen on ventilator as tolerated -2/2 blood cultures haemophilus influenzae should be covered levofloxacin and vancomycin.? -Management per ICU 05/04/2022 interval history:?patient with septic shock secondary to pneumonia due to Haemophilus influenzae bacteremia, patient is being treated with ceftriaxone and Levaquin,? patient clinically symptoms are improving is off Levophed patient is seen by director supply and discussed patient clinically symptoms are improved may wean the patient off ventilator tomorrow, and will continue to monitor Review of Systems Review of Systems: ROS unobtainable: Yes unobtainable due to endotracheal tube Objective Data Vital Signs Vital Signs: Vital Signs - 24 hr 05/03/22 18:00 05/03/22 18:00 05/03/22 18:00 Temperature Pulse Rate 84 84 86 Respiratory Rate 18 18 18 Blood Pressure 122/79 Pulse Oximetry 95 Oxygen Delivery Fra
[2022-05-04 20:18] LABS: Glucose Point of Care 190 mg/dl (65-105)
[2022-05-04 23:51] LABS: Glucose Point of Care 229 mg/dl (65-105)
[2022-05-05] VITALS (73 sets, daily range): BP systolic 102–121; BP diastolic 60–78; PULSE 73–100; RESP 16–19; TEMP 37.1–37.5; O2SAT 85–96
[2022-05-05] MEDS: FENTANYL 2,500MCG/NS250ML(*CRX 2,500 MCG/250 ML BAG 12.5 MCG IV CONT ×2 (01:03→20:32)
[2022-05-05] MEDS: IPRATROPIUM BR 0.02% INH SOLN 0.5 MG/2.5 ML VIAL INHALATION ×4 (02:54→20:06)
[2022-05-05] MEDS: ALBUTEROL SULFATE NEB 2.5 MG/3 ML INH 5 MG INHALATION ×4 (02:54→20:06)
[2022-05-05 04:23] LABS: Basophils Absolute Auto 0.1 K/mm3 (0.0-0.1); Basophils Percent Auto 0.6 % (0.2-1.2); Hemoglobin 11.5 g/dL (14.0-18.0); Immature Granulocyte Absolute 1.17 K/mm3 (0.00-0.031); Immature Granulocyte Percent A 12.1 % (0-0.5); Lymphocytes Absolute Auto 0.27 K/mm3 (0.9-3.2); Lymphocytes Percent Auto 2.8 % (18.3-44.2); Mean Corpuscular HGB Conc 31.1 g/dl (32-36); Mean Corpuscular Hemoglobin 29.3 pg (26-34); Mean Corpuscular Volume 94.1 fl (80-100); Mean Platelet Volume 10.3 fl (7.4-10.4); Monocytes Absolute Auto 0.7 K/mm3 (0.1-0.6); Monocytes Percent Auto 6.8 % (2.6-8.5); Neutrophils Absolute Auto 7.5 K/mm3 (1.3-6.7); Neutrophils Percent Auto 77.7 % (45.5-73.1); Nucleated Red Blood Cells Perc 0.4 % (0.0-0.2); Platelet Count Result 257 k/mm3 (150-375); Red Blood Count 3.93 M/mm3 (4.6-6.20); Red Cell Distribution Width 17.2 % (11.5-14.5); White Blood Count 9.6 K/mm3 (4.5-10.0)
[2022-05-05 04:32] LABS: INR 1.8; Prothrombin Time 20.6 Seconds (11.1-14.7)
[2022-05-05 04:33] LABS: Partial Thromboplastin Time 24.3 SECONDS (22.3-36.8)
[2022-05-05 04:57] LABS: Anisocytosis 1+ (NORMAL); Atypical Lymphocytes Present; Platelet Estimate Adequate (Adequate); Schistocytes None Seen (NORMAL)
[2022-05-05 05:07] LABS: Glucose Point of Care 215 mg/dl (65-105)
[2022-05-05] MEDS: CENTRAL LINE FLUSH 10 ML IV PUSH ×3 (05:07→20:36)
[2022-05-05] MEDS: METOCLOPRAMIDE HCL INJ 10 MG/2 ML VIAL IV PUSH ×3 (05:07→18:00)
[2022-05-05] MEDS: INSULIN ASPART (*BKC) 100 UNITS/ML SUB-Q ×2 (05:07→16:26)
[2022-05-05 05:13] LABS: Alveolar/Arterial O2 Gradient 301.6 mmHg; Base Excess ABG 10.6 mEq/l (+/-2.0); Carboxyhemoglobin 0.3 % THb (0-2.0); Fractional Inspired Oxygen 60 %; HCO3 ABG 36.6 mEq/l (22.0-26.0); Methemoglobin ABG 0.2 %THb (0-1.5); Oxygen Content ABG 16.6 %vol (16.0-22.0); Oxygen Saturation ABG 93.6 % (95.0-100.0); Oxyhemoglobin 91.9 % THb (90.0-100.0); PCO2 ABG 54.3 mmHg (35.0-45.0); PO2 ABG 66.5 mmHg (80.0-100.0); PO2 FiO2 Ratio Arterial Blood 1.11 %; Reduced Hemoglobin 7.6 %THb (0-5.0); Total Hemoglobin 12.8 g/dL (12.0-18.0); pH ABG 7.446 (7.350-7.450)
[2022-05-05 05:20] LABS: Arterial Blood Gas PEEP 10 cmH2O; Arterial Blood Gas Tidal Volume 450 ml; Arterial Blood Gas Vent Mode CMV; Arterial Blood Gas Ventilator rate 18 /MIN; Device VENTILATOR; Modified Allen's Test Pass; Site Drawn RIGHT RADIAL
[2022-05-05 07:47] LABS: Glucose Point of Care 167 mg/dl (65-105)
[2022-05-05 08:13] LABS: Alanine Aminotransferase 29 U/L (6-50); Albumin Level 2.7 g/dL (3.5-5.1); Alkaline Phosphatase 36 U/L (38-126); Anion Gap 8 mmol/L (8-16); Aspartate Amino Transferase 27 U/L (17-59); Bilirubin,Total 0.5 mg/dL (0.2-1.3); Blood Urea Nitrogen 74 mg/dL (9-20); Calcium 7.3 mg/dL (8.4-10.2); Carbon Dioxide 36 mmol/L (22-30); Chloride 101 mmol/L (98-107); Estimated CRCL calculation 54 ml/min; Estimated Glomerular Filt Rate 59; Glucose 179 mg/dL (65-110); Magnesium 3.3 mg/dL (1.6-2.3); Potassium 4.4 mmol/L (3.4-5.0); Sodium 145 mmol/L (137-145)
[2022-05-05] MEDS: DORNASE ALFA INH SOLN 1 MG/ML 2.5 ML AMP 2.5 MG INHALATION ×2 (08:46→20:06)
[2022-05-05] MEDS: LACTULOSE 20 GM/30 ML UDC PO (09:03)
[2022-05-05] MEDS: polyethylene glycoL 3350 17 GM POWD.PACK FEED TUBE (09:03)
[2022-05-05] MEDS: AMIODARONE HCL 200 MG TABLET PO (09:03)
[2022-05-05] MEDS: methylPREDNISolone SOD SUCC 40 MG VIAL 20 MG IV PUSH ×2 (09:03→20:34)
[2022-05-05] MEDS: MINERAL OIL/WHITE PETROLATUM OINTMENT 1 APPLIC EACH EYE ×2 (09:04→20:36)
[2022-05-05] MEDS: TOLNAFTATE 1% POWDER 45 GM BTL 1 APPLIC TOPICAL ×2 (09:04→20:37)
[2022-05-05] MEDS: PANTOPRAZOLE SODIUM IV 40 MG VIAL IV PUSH ×2 (09:04→20:36)
[2022-05-05] MEDS: INSULIN GLARGINE (*BKC) 100 UNITS/ML 48 UNITS SUB-Q (09:06)
--- NOTE | 2022-05-05 10:49 | WPDINTPN ---
Progress Note: A&P Assessment and Plan (1) Septic shock: Code(s): A41.9 - Sepsis, unspecified organism; R65.21 - Severe sepsis with septic shock Status: Acute Assessment and Plan: Septic shock secondary to Haemophilus influenzae bacteremia and pneumonia Off Levophed, since 05/03/2022 morning Conservative IV fluid strategy in light of severe respiratory failure Sedation could also cause some hypotension Currently not on any IV fluids He is currently on IV Rocephin, Levaquin -discontinued vancomycin on 05/02 -05/03 repeat blood culture are negative till now (2) Haemophilus influenzae septicemia: Code(s): A41.3 - Sepsis due to Hemophilus influenzae Status: Acute Assessment and Plan: See above (3) Hemoptysis: Code(s): R04.2 - Hemoptysis Status: Acute Assessment and Plan: Secondary to to pneumonia, coughing, rupture of a small blood vessel, patient was also on Coumadin which contributed -Coumadin was reversed with vitamin K and Kcentra Most recent INR 1.8 (4) Respiratory failure with hypoxia: Code(s): J96.91 - Respiratory failure, unspecified with hypoxia Status: Acute Assessment and Plan: Continue mechanical ventilation He is currently on 50% FiO2 and 10 of PEEP ABG reviewed Chest x-ray reviewed He is currently on Solu-Medrol 20 mg q12 hours Continue bronchodilators -thick flanagan-colored ET tube secretions, continue Pulmozyme Not a candidate for weaning at this time Sedation holiday today (5) Pneumonia: Code(s): J18.9 - Pneumonia, unspecified organism Status: Acute Assessment and Plan: Secondary to Haemophilus influenzae See above (6) COPD (chronic obstructive pulmonary disease): Code(s): J44.9 - Chronic obstructive pulmonary disease, unspecified Status: Acute Assessment and Plan: See above (7) Biventricular CHF (congestive heart failure): Code(s): I50.82 - Biventricular heart failure Status: Acute Assessment and Plan: He has low LVEF 40%-45% and severely enlarged RV with RV diastolic dysfunction, severe pulmonary hypertension with regurgitant tricuspid valve flow. This was noted on his echo.??His pulmonary hypertension is chronic, and he may have an acute component as well. He uses O2 at night, may need O2 in the day. He has COPD. His creat was too high to get a CTA to evaluate for PE. He was fully anticoagulated on admission.? 05/01 CTA chest: Bilateral dependent airspace consolidation which may represent atelectasis and/or pneumonia. No evidence of pulmonary embolism Repeat echocardiogram 04/27 Summary ? 1. Technically challenging exam.? Definity contrast used to improvevisualization. ? 2. Mild left ventricular systolic dysfunction with estimated ejectionfraction 40-45%. ? 3. Severe right ventricular enlargement with RV systolic dysfunction. ? 4. Biatrial dilation. ? 5. Tricuspid regurgitant velocity suggesting pulmonary artery pressures areseverely elevated. ? 6. Atrial fibrillation. (8) Acute kidney injury: Code(s): N17.9 - Acute kidney failure, unspecified Status: Acute Assessment and Plan: 04/27 - BUN was 24 and creat was 1.3, BUN and creat increased on Apr 28 higher BUN 34 and creat 2.0. Creatinine now 1.40 Likely secondary to sepsis, hypotension or underperfusion with Right heart failure. Off Levophed Patient was given additional IV fluids on 05/01 after the CTA, will continue to monitor renal function possible contrast induced nephropathy (9) Atrial fibrillation: Code(s): I48.91 - Unspecified atrial fibrillation Status: Acute Assessment and Plan: Controlled ventricular rate On amiodarone (10) Hyperglycemia: Code(s): R73.9 - Hyperglycemia, unspecified Status: Acute Assessment and Plan: Continue Lantus Increase sliding scale to q.4 hours and high scale Anticipate improvement as the steroid dose is decreased Plan DVT proph
--- NOTE | 2022-05-05 11:22 | PCNFU ---
Nutrition Follow-Up Complete: Inadequate Oral Intake as related to mechanical vent as evidenced by NPO. goal: Meet estimated nutritional needs Patient is meeting current goal. We will continue current goal. Pt current nutrition is Vital AF 1.2 at 70 ml/hr. Last recorded weight is 113.6 kg. Bowel Motility:No BM reported. Labs Reviewed:BUN 74, Glu 179, Alb 2.7,Hgb 11.5,Hct 37.0 Meds Noted::Solu Medrol, Lantus, Vancomycin, Versed, Fentanyl, Reglan, Protonix, Lactulose, Miralax. Skin: WNL Additional Notes: Patient remains on mechanical vent and tube feedings of Vital AF 1.2 at 70 ml/hr. Current tube feeding is providing 1848 kcals/116 gms protein/1249 ml water. Meeting 95% caloric needs and 100% protein needs. Free water flush 30 ml q 4 hours. Agree with diet orders. Will monitor in ICU rounds and reassessing every Sunday and Sunday.
[2022-05-05 11:24] LABS: Glucose Point of Care 200 mg/dl (65-105)
[2022-05-05] MEDS: ENOXAPARIN 40 MG/0.4 ML SYRINGE SUB-Q (11:24)
[2022-05-05] MEDS: cefTRIAXone 2 GM in SODIUM CHLORIDE 0.9% IV 100 ML 200 ML IVPB (12:36)
[2022-05-05 18:10] LABS: Glucose Point of Care 210 mg/dl (65-105)
[2022-05-05] MEDS: MIDAZOLAM 100MG/NS 100ML(*CRX) 100 MG/100 ML BAG IV CONT (20:31)
[2022-05-05 20:55] LABS: Glucose Point of Care 160 mg/dl (65-105)
[2022-05-05 22:07] LABS: Legionella pneumophila Ag Ur Not Detected (Not Detected)
[2022-05-06] VITALS (37 sets, daily range): BP systolic 96–162; BP diastolic 67–94; PULSE 79–134; RESP 18–24; TEMP 37.6–38.2; O2SAT 92–95
[2022-05-06 00:17] LABS: Glucose Point of Care 201 mg/dl (65-105)
[2022-05-06] MEDS: INSULIN ASPART (*BKC) 100 UNITS/ML SUB-Q ×3 (00:39→11:57)
[2022-05-06] MEDS: METOCLOPRAMIDE HCL INJ 10 MG/2 ML VIAL IV PUSH ×4 (00:41→17:21)
[2022-05-06] MEDS: ALBUTEROL SULFATE NEB 2.5 MG/3 ML INH 5 MG INHALATION ×4 (02:40→20:35)
[2022-05-06] MEDS: IPRATROPIUM BR 0.02% INH SOLN 0.5 MG/2.5 ML VIAL INHALATION ×4 (02:40→20:35)
[2022-05-06 05:00] LABS: Glucose Point of Care 199 mg/dl (65-105)
[2022-05-06] MEDS: CENTRAL LINE FLUSH 10 ML IV PUSH ×3 (05:10→21:09)
[2022-05-06 05:32] LABS: Basophils Absolute Auto 0.1 K/mm3 (0.0-0.1); Basophils Percent Auto 0.6 % (0.2-1.2); Hematocrit 37.1 % (42.0-52.0); Hemoglobin 11.4 g/dL (14.0-18.0); Immature Granulocyte Absolute 1.16 K/mm3 (0.00-0.031); Immature Granulocyte Percent A 9.3 % (0-0.5); Lymphocytes Absolute Auto 0.31 K/mm3 (0.9-3.2); Lymphocytes Percent Auto 2.5 % (18.3-44.2); Mean Corpuscular HGB Conc 30.7 g/dl (32-36); Mean Corpuscular Hemoglobin 29.3 pg (26-34); Mean Corpuscular Volume 95.4 fl (80-100); Mean Platelet Volume 10.3 fl (7.4-10.4); Monocytes Absolute Auto 0.7 K/mm3 (0.1-0.6); Monocytes Percent Auto 5.2 % (2.6-8.5); Neutrophils Absolute Auto 10.2 K/mm3 (1.3-6.7); Neutrophils Percent Auto 82.4 % (45.5-73.1); Nucleated Red Blood Cells Perc 0.2 % (0.0-0.2); Platelet Count Result 258 k/mm3 (150-375); Red Blood Count 3.89 M/mm3 (4.6-6.20); Red Cell Distribution Width 17.2 % (11.5-14.5); White Blood Count 12.4 K/mm3 (4.5-10.0)
[2022-05-06 05:40] LABS: Alveolar/Arterial O2 Gradient 294.7 mmHg; Base Excess ABG 10.4 mEq/l (+/-2.0); Carboxyhemoglobin 0.2 % THb (0-2.0); Fractional Inspired Oxygen 60 %; Oxygen Content ABG 16.6 %vol (16.0-22.0); Oxygen Saturation ABG 95.5 % (95.0-100.0); PCO2 ABG 52.4 mmHg (35.0-45.0); PO2 ABG 75.5 mmHg (80.0-100.0); PO2 FiO2 Ratio Arterial Blood 1.26 %; Reduced Hemoglobin 5.8 %THb (0-5.0); Total Hemoglobin 12.5 g/dL (12.0-18.0); pH ABG 7.455 (7.350-7.450)
[2022-05-06 05:41] LABS: Device VENTILATOR; Modified Allen's Test Pass; Site Drawn RIGHT RADIAL
[2022-05-06 05:42] LABS: Arterial Blood Gas PEEP 10 cmH2O; Arterial Blood Gas Tidal Volume 450 ml; Arterial Blood Gas Vent Mode CMV; Arterial Blood Gas Ventilator rate 18 /MIN
[2022-05-06 06:57] LABS: Anisocytosis 1+ (NORMAL); Hypochromasia 1+ (NORMAL); Ovalocytes 1+ (NORMAL); Platelet Estimate Adequate (Adequate)
[2022-05-06 06:58] LABS: Schistocytes None Seen (NORMAL); Smudge Cells PRESENT
[2022-05-06 07:38] LABS: Alanine Aminotransferase 27 U/L (6-50); Albumin Level 2.7 g/dL (3.5-5.1); Alkaline Phosphatase 40 U/L (38-126); Anion Gap 10 mmol/L (8-16); Aspartate Amino Transferase 24 U/L (17-59); Bilirubin,Total 0.6 mg/dL (0.2-1.3); Blood Urea Nitrogen 69 mg/dL (9-20); Calcium 7.5 mg/dL (8.4-10.2); Carbon Dioxide 34 mmol/L (22-30); Chloride 102 mmol/L (98-107); Estimated CRCL calculation 51 ml/min; Estimated Glomerular Filt Rate 53; Glucose 205 mg/dL (65-110); Magnesium 3.4 mg/dL (1.6-2.3); Phosphorus 4.1 mg/dL (2.5-4.5); Potassium 4.3 mmol/L (3.4-5.0); Sodium 146 mmol/L (137-145)
[2022-05-06] MEDS: DORNASE ALFA INH SOLN 1 MG/ML 2.5 ML AMP 2.5 MG INHALATION (08:09)
[2022-05-06] MEDS: LACTULOSE 20 GM/30 ML UDC PO (08:38)
[2022-05-06] MEDS: methylPREDNISolone SOD SUCC 40 MG VIAL 20 MG IV PUSH (08:38)
[2022-05-06] MEDS: AMIODARONE HCL 200 MG TABLET PO (08:38)
[2022-05-06] MEDS: TOLNAFTATE 1% POWDER 45 GM BTL 1 APPLIC TOPICAL ×2 (08:39→21:10)
[2022-05-06] MEDS: polyethylene glycoL 3350 17 GM POWD.PACK FEED TUBE (08:39)
[2022-05-06] MEDS: PANTOPRAZOLE SODIUM IV 40 MG VIAL IV PUSH ×2 (08:39→21:09)
[2022-05-06] MEDS: ENOXAPARIN 40 MG/0.4 ML SYRINGE SUB-Q (08:39)
[2022-05-06] MEDS: MINERAL OIL/WHITE PETROLATUM OINTMENT 1 APPLIC EACH EYE ×2 (08:40→21:08)
[2022-05-06] MEDS: INSULIN GLARGINE (*BKC) 100 UNITS/ML 48 UNITS SUB-Q (08:56)
--- NOTE | 2022-05-06 09:03 | WPDINTPN ---
Progress Note: A&P Assessment and Plan (1) Septic shock: Code(s): A41.9 - Sepsis, unspecified organism; R65.21 - Severe sepsis with septic shock Status: Acute Assessment and Plan: Septic shock secondary to Haemophilus influenzae bacteremia and pneumonia Off Levophed, since 05/03/2022 morning Conservative IV fluid strategy in light of severe respiratory failure Sedation could also cause some hypotension Currently not on any IV fluids He is currently on IV Rocephin, Levaquin -discontinued vancomycin on 05/02 -05/03 repeat blood culture are negative till now (2) Haemophilus influenzae septicemia: Code(s): A41.3 - Sepsis due to Hemophilus influenzae Status: Acute Assessment and Plan: See above (3) Hemoptysis: Code(s): R04.2 - Hemoptysis Status: Acute Assessment and Plan: Secondary to to pneumonia, coughing, rupture of a small blood vessel, patient was also on Coumadin which contributed -Coumadin was reversed with vitamin K and Kcentra Most recent INR 1.8 No recurrence. Patient currently on prophylactic dose of Lovenox. I will advance it to therapeutic dose (4) Respiratory failure with hypoxia: Code(s): J96.91 - Respiratory failure, unspecified with hypoxia Status: Acute Assessment and Plan: Continue mechanical ventilation He is currently on 60% FiO2 and 10 of PEEP and has not made any significant progress CT scan did not suggest any pulmonary edema but suggest consolidation from his pneumonia. His intake and output balance and other exam also does not suggest volume overload ABG reviewed Chest x-ray reviewed He is currently on Solu-Medrol 20 mg q12 hours which I will wean it down further Continue bronchodilators -thick flanagan-colored ET tube secretions, continue Pulmozyme Not a candidate for weaning at this time Sedation holiday today (5) Pneumonia: Code(s): J18.9 - Pneumonia, unspecified organism Status: Acute Assessment and Plan: Secondary to Haemophilus influenzae See above (6) COPD (chronic obstructive pulmonary disease): Code(s): J44.9 - Chronic obstructive pulmonary disease, unspecified Status: Acute Assessment and Plan: See above (7) Biventricular CHF (congestive heart failure): Code(s): I50.82 - Biventricular heart failure Status: Acute Assessment and Plan: He has low LVEF 40%-45% and severely enlarged RV with RV diastolic dysfunction, severe pulmonary hypertension with regurgitant tricuspid valve flow. This was noted on his echo.??His pulmonary hypertension is chronic, and he may have an acute component as well. He uses O2 at night, may need O2 in the day. He has COPD. His creat was too high to get a CTA to evaluate for PE. He was fully anticoagulated on admission.? 05/01 CTA chest: Bilateral dependent airspace consolidation which may represent atelectasis and/or pneumonia. No evidence of pulmonary embolism Repeat echocardiogram 04/27 Summary ? 1. Technically challenging exam.? Definity contrast used to improvevisualization. ? 2. Mild left ventricular systolic dysfunction with estimated ejectionfraction 40-45%. ? 3. Severe right ventricular enlargement with RV systolic dysfunction. ? 4. Biatrial dilation. ? 5. Tricuspid regurgitant velocity suggesting pulmonary artery pressures areseverely elevated. ? 6. Atrial fibrillation. (8) Acute kidney injury: Code(s): N17.9 - Acute kidney failure, unspecified Status: Acute Assessment and Plan: 04/27 - BUN was 24 and creat was 1.3, BUN and creat increased on Apr 28 higher BUN 34 and creat 2.0. Creatinine now 1.30 Likely secondary to sepsis, hypotension or underperfusion with Right heart failure. Off Levophed Patient was given additional IV fluids on 05/01 after the CTA, will continue to monitor renal function possible contrast induced nephropathy (9) Atrial fibrillation: Code(s): I48.91 - Unspecified atrial fibrillation
[2022-05-06 09:06] LABS: Glucose Point of Care 204 mg/dl (65-105)
[2022-05-06 12:30] LABS: Glucose Point of Care 213 mg/dl (65-105)
[2022-05-06] MEDS: cefTRIAXone 2 GM in SODIUM CHLORIDE 0.9% IV 100 ML 200 ML IVPB (13:19)
[2022-05-06] MEDS: ACETAMINOPHEN 325 MG TABLET 650 MG PO (15:26)
[2022-05-06] MEDS: FENTANYL 2,500MCG/NS250ML(*CRX 2,500 MCG/250 ML BAG 12.5 MCG IV CONT (16:43)
[2022-05-06 17:02] LABS: Glucose Point of Care 196 mg/dl (65-105)
[2022-05-06] MEDS: ENOXAPARIN 120 MG/0.8 ML SYRINGE 110 MG SUB-Q (21:07)
[2022-05-06 21:08] LABS: Glucose Point of Care 196 mg/dl (65-105)
[2022-05-07] VITALS (39 sets, daily range): BP systolic 87–141; BP diastolic 57–87; PULSE 99–122; RESP 18–20; TEMP 38–38.4; O2SAT 91–97
[2022-05-07] MEDS: MIDAZOLAM 100MG/NS 100ML(*CRX) 100 MG/100 ML BAG IV CONT (00:42)
[2022-05-07 00:44] LABS: Glucose Point of Care 199 mg/dl (65-105)
[2022-05-07] MEDS: METOCLOPRAMIDE HCL INJ 10 MG/2 ML VIAL IV PUSH ×4 (00:45→17:09)
[2022-05-07] MEDS: ALBUTEROL SULFATE NEB 2.5 MG/3 ML INH 5 MG INHALATION ×4 (02:47→20:50)
[2022-05-07] MEDS: IPRATROPIUM BR 0.02% INH SOLN 0.5 MG/2.5 ML VIAL INHALATION ×4 (02:47→20:50)
[2022-05-07 04:05] LABS: Glucose Point of Care 190 mg/dl (65-105)
[2022-05-07 04:08] LABS: Basophils Absolute Auto 0.1 K/mm3 (0.0-0.1); Basophils Percent Auto 0.5 % (0.2-1.2); Hematocrit 41.8 % (42.0-52.0); Hemoglobin 13.1 g/dL (14.0-18.0); Immature Granulocyte Absolute 1.38 K/mm3 (0.00-0.031); Lymphocytes Absolute Auto 0.64 K/mm3 (0.9-3.2); Lymphocytes Percent Auto 2.8 % (18.3-44.2); Mean Corpuscular HGB Conc 31.3 g/dl (32-36); Mean Corpuscular Hemoglobin 29.4 pg (26-34); Mean Corpuscular Volume 93.9 fl (80-100); Mean Platelet Volume 10.8 fl (7.4-10.4); Monocytes Absolute Auto 1.3 K/mm3 (0.1-0.6); Monocytes Percent Auto 5.5 % (2.6-8.5); Neutrophils Absolute Auto 19.7 K/mm3 (1.3-6.7); Neutrophils Percent Auto 85.2 % (45.5-73.1); Nucleated Red Blood Cells Absolute Auto 0.1 K/mm3 (0.0-0.012); Nucleated Red Blood Cells Perc 0.3 % (0.0-0.2); Platelet Count Result 207 k/mm3 (150-375); Red Blood Count 4.45 M/mm3 (4.6-6.20); Red Cell Distribution Width 17.2 % (11.5-14.5); White Blood Count 23.1 K/mm3 (4.5-10.0)
[2022-05-07 05:25] LABS: Alveolar/Arterial O2 Gradient 287.1 mmHg; Base Excess ABG 10.1 mEq/l (+/-2.0); Carboxyhemoglobin 0.1 % THb (0-2.0); Fractional Inspired Oxygen 60 %; HCO3 ABG 36.4 mEq/l (22.0-26.0); Methemoglobin ABG 0.2 %THb (0-1.5); Oxyhemoglobin 94.9 % THb (90.0-100.0); PCO2 ABG 54.9 mmHg (35.0-45.0); PO2 ABG 80.3 mmHg (80.0-100.0); PO2 FiO2 Ratio Arterial Blood 1.34 %; Reduced Hemoglobin 4.8 %THb (0-5.0); Total Hemoglobin 14.2 g/dL (12.0-18.0); pH ABG 7.439 (7.350-7.450)
[2022-05-07 05:26] LABS: Device VENTILATOR; Modified Allen's Test Pass; Site Drawn RIGHT RADIAL
[2022-05-07 05:27] LABS: Arterial Blood Gas PEEP 10 cmH2O; Arterial Blood Gas Tidal Volume 450 ml; Arterial Blood Gas Vent Mode CMV; Arterial Blood Gas Ventilator rate 18 /MIN
[2022-05-07 05:32] LABS: Alanine Aminotransferase 42 U/L (6-50); Albumin Level 2.9 g/dL (3.5-5.1); Alkaline Phosphatase 42 U/L (38-126); Anion Gap 10 mmol/L (8-16); Aspartate Amino Transferase 44 U/L (17-59); Bilirubin,Total 0.8 mg/dL (0.2-1.3); Blood Urea Nitrogen 80 mg/dL (9-20); Carbon Dioxide 34 mmol/L (22-30); Chloride 105 mmol/L (98-107); Estimated CRCL calculation 60 ml/min; Estimated Glomerular Filt Rate > 60; Glucose 201 mg/dL (65-110); Magnesium 3.2 mg/dL (1.6-2.3); Phosphorus 3.9 mg/dL (2.5-4.5); Potassium 4.3 mmol/L (3.4-5.0); Sodium 149 mmol/L (137-145)
[2022-05-07] MEDS: CENTRAL LINE FLUSH 10 ML IV PUSH ×3 (06:14→20:00)
[2022-05-07] MEDS: ACETAMINOPHEN 325 MG TABLET 650 MG PO (06:14)
--- NOTE | 2022-05-07 08:25 | WPDINTPN ---
Progress Note: A&P Assessment and Plan (1) Septic shock: Code(s): A41.9 - Sepsis, unspecified organism; R65.21 - Severe sepsis with septic shock Status: Acute Assessment and Plan: Septic shock secondary to Haemophilus influenzae bacteremia and pneumonia Off Levophed, since 05/03/2022 morning Conservative IV fluid strategy in light of severe respiratory failure Sedation could also cause some hypotension Currently not on any IV fluids He is currently on IV Rocephin, Levaquin -discontinued vancomycin on 05/02 -05/03 repeat blood culture are negative till now 05/07 persistent fevers Check blood sputum cultures Replace Nichole and check UA and urine culture Check lipase He is already on anticoagulation Add vancomycin and change Rocephin to cefepime No significant change in oxygen requirement chest x-ray or respiratory secretions No diarrhea at this time (2) Haemophilus influenzae septicemia: Code(s): A41.3 - Sepsis due to Hemophilus influenzae Status: Acute Assessment and Plan: See above (3) Hemoptysis: Code(s): R04.2 - Hemoptysis Status: Acute Assessment and Plan: Secondary to to pneumonia, coughing, rupture of a small blood vessel, patient was also on Coumadin which contributed -Coumadin was reversed with vitamin K and Kcentra Most recent INR 1.8 No recurrence. Back on therapeutic dose of anticoagulation (4) Respiratory failure with hypoxia: Code(s): J96.91 - Respiratory failure, unspecified with hypoxia Status: Acute Assessment and Plan: Continue mechanical ventilation He is currently on 60% FiO2 and 10 of PEEP and has not made any significant progress CT scan did not suggest any pulmonary edema but suggest consolidation from his pneumonia. His intake and output balance and other exam also does not suggest volume overload ABG reviewed Chest x-ray reviewed Swallow Medrol is being weaned off Continue bronchodilators Minimal ET tube secretions, continue Pulmozyme No hemoptysis at this time Not a candidate for weaning at this time Sedation holiday today (5) Pneumonia: Code(s): J18.9 - Pneumonia, unspecified organism Status: Acute Assessment and Plan: Secondary to Haemophilus influenzae See above (6) COPD (chronic obstructive pulmonary disease): Code(s): J44.9 - Chronic obstructive pulmonary disease, unspecified Status: Acute Assessment and Plan: See above (7) Biventricular CHF (congestive heart failure): Code(s): I50.82 - Biventricular heart failure Status: Acute Assessment and Plan: He has low LVEF 40%-45% and severely enlarged RV with RV diastolic dysfunction, severe pulmonary hypertension with regurgitant tricuspid valve flow. This was noted on his echo.??His pulmonary hypertension is chronic, and he may have an acute component as well. He uses O2 at night, may need O2 in the day. He has COPD. His creat was too high to get a CTA to evaluate for PE. He was fully anticoagulated on admission.? 05/01 CTA chest: Bilateral dependent airspace consolidation which may represent atelectasis and/or pneumonia. No evidence of pulmonary embolism Repeat echocardiogram 04/27 Summary ? 1. Technically challenging exam.? Definity contrast used to improvevisualization. ? 2. Mild left ventricular systolic dysfunction with estimated ejectionfraction 40-45%. ? 3. Severe right ventricular enlargement with RV systolic dysfunction. ? 4. Biatrial dilation. ? 5. Tricuspid regurgitant velocity suggesting pulmonary artery pressures areseverely elevated. ? 6. Atrial fibrillation. (8) Acute kidney injury: Code(s): N17.9 - Acute kidney failure, unspecified Status: Acute Assessment and Plan: 04/27 - BUN was 24 and creat was 1.3, BUN and creat increased on Apr 28 higher BUN 34 and creat 2.0. Likely secondary to sepsis, hypotension or underperfusion with Right heart failure. Off Levophed Patient was given a
[2022-05-07 08:32] LABS: Lipase 79 U/L (23-300)
[2022-05-07] MEDS: AMIODARONE HCL 200 MG TABLET PO (09:07)
[2022-05-07] MEDS: polyethylene glycoL 3350 17 GM POWD.PACK FEED TUBE (09:08)
[2022-05-07] MEDS: PANTOPRAZOLE SODIUM IV 40 MG VIAL IV PUSH ×2 (09:08→20:00)
[2022-05-07] MEDS: ENOXAPARIN 120 MG/0.8 ML SYRINGE 110 MG SUB-Q ×2 (09:08→20:00)
[2022-05-07] MEDS: LACTULOSE 20 GM/30 ML UDC PO (09:08)
[2022-05-07] MEDS: MINERAL OIL/WHITE PETROLATUM OINTMENT 1 APPLIC EACH EYE ×2 (09:08→20:00)
[2022-05-07] MEDS: TOLNAFTATE 1% POWDER 45 GM BTL 1 APPLIC TOPICAL ×2 (09:09→20:00)
[2022-05-07] MEDS: methylPREDNISolone SOD SUCC 40 MG VIAL 20 MG IV PUSH (09:09)
[2022-05-07 09:12] LABS: Glucose Point of Care 188 mg/dl (65-105)
[2022-05-07] MEDS: INSULIN GLARGINE (*BKC) 100 UNITS/ML 55 UNITS SUB-Q (09:13)
[2022-05-07 10:28] LABS: Appearance Urine Clear (Clear); Bilirubin Urine Negative (Negative); Blood Urine 2+ (Negative); Color Urine Yellow (Yellow); Glucose Urine UA Negative (Negative); Ketones Urine Negative (Negative); Leukocyte Esterase Ur Negative LEU/UL (Negative); Nitrate Urine Negative (Negative); Protein Urine 1+ mg/dL (Negative); Urobilinogen Urine 0.2 mg/dL (<2.0); pH Urine 5.5 (5.0-9.0)
[2022-05-07 10:49] LABS: Bacteria Urine Trace /hpf; Mucus Urine Rare /lpf; Squamous Epithelial Cell Urine Rare /hpf (Few); WBC Urine 16-20 /hpf
[2022-05-07 10:50] LABS: Add Urine Microscopic? YES
[2022-05-07] MEDS: FENTANYL 2,500MCG/NS250ML(*CRX 2,500 MCG/250 ML BAG 12.5 MCG IV CONT (11:07)
[2022-05-07 12:32] LABS: Glucose Point of Care 190 mg/dl (65-105)
[2022-05-07] MEDS: ACETAMINOPHEN ELIXIR 325 MG/10.15 ML UDC 650 MG FEED TUBE (16:06)
[2022-05-07] MEDS: INSULIN ASPART (*BKC) 100 UNITS/ML SUB-Q ×2 (17:13→20:47)
[2022-05-07 17:14] LABS: Glucose Point of Care 225 mg/dl (65-105)
[2022-05-07] MEDS: NOREPINEPHRINE 8 MG/D5W 250 ML 8 MG/250 ML BAG 9.38 MG IV CONT (19:11)
[2022-05-07 20:27] LABS: Glucose Point of Care 203 mg/dl (65-105)
[2022-05-08] VITALS (42 sets, daily range): BP systolic 79–209; BP diastolic 49–138; PULSE 74–125; RESP 18–27; TEMP 37.5–38.6; O2SAT 93–98
[2022-05-08] MEDS: ACETAMINOPHEN ELIXIR 325 MG/10.15 ML UDC 650 MG FEED TUBE (00:11)
[2022-05-08] MEDS: METOCLOPRAMIDE HCL INJ 10 MG/2 ML VIAL IV PUSH ×3 (00:16→18:31)
[2022-05-08 00:24] LABS: Glucose Point of Care 141 mg/dl (65-105)
[2022-05-08] MEDS: ALBUTEROL SULFATE NEB 2.5 MG/3 ML INH 5 MG INHALATION ×4 (02:34→20:09)
[2022-05-08] MEDS: IPRATROPIUM BR 0.02% INH SOLN 0.5 MG/2.5 ML VIAL INHALATION ×4 (02:34→20:09)
[2022-05-08] MEDS: MIDAZOLAM 100MG/NS 100ML(*CRX) 100 MG/100 ML BAG IV CONT (02:41)
[2022-05-08 04:52] LABS: Basophils Percent Auto 0.1 % (0.2-1.2); Hematocrit 40.5 % (42.0-52.0); Hemoglobin 12.6 g/dL (14.0-18.0); Immature Granulocyte Absolute 1.71 K/mm3 (0.00-0.031); Immature Granulocyte Percent A 4.4 % (0-0.5); Lymphocytes Absolute Auto 0.87 K/mm3 (0.9-3.2); Lymphocytes Percent Auto 2.2 % (18.3-44.2); Mean Corpuscular HGB Conc 31.1 g/dl (32-36); Mean Corpuscular Volume 96.4 fl (80-100); Mean Platelet Volume 10.7 fl (7.4-10.4); Monocytes Absolute Auto 1.8 K/mm3 (0.1-0.6); Monocytes Percent Auto 4.7 % (2.6-8.5); Neutrophils Absolute Auto 34.4 K/mm3 (1.3-6.7); Neutrophils Percent Auto 88.6 % (45.5-73.1); Nucleated Red Blood Cells Absolute Auto 0.1 K/mm3 (0.0-0.012); Nucleated Red Blood Cells Perc 0.2 % (0.0-0.2); Platelet Count Result 288 k/mm3 (150-375); Red Cell Distribution Width 18.1 % (11.5-14.5); White Blood Count 38.9 K/mm3 (4.5-10.0)
[2022-05-08] MEDS: CENTRAL LINE FLUSH 10 ML IV PUSH ×3 (04:52→21:40)
[2022-05-08 05:30] LABS: Carboxyhemoglobin 0.2 % THb (0-2.0); Methemoglobin ABG 0.2 %THb (0-1.5); PO2 FiO2 Ratio Arterial Blood 1.24 %; Reduced Hemoglobin 5.6 %THb (0-5.0)
[2022-05-08 05:39] LABS: Fractional Inspired Oxygen 60 %
[2022-05-08 05:40] LABS: Base Excess ABG 5.7 mEq/l (+/-2.0); HCO3 ABG 31.1 mEq/l (22.0-26.0); Oxygen Saturation ABG 95.1 % (95.0-100.0); PCO2 ABG 48.2 mmHg (35.0-45.0); PO2 ABG 74.1 mmHg (80.0-100.0); Total Hemoglobin 13.6 g/dL (12.0-18.0); pH ABG 7.428 (7.350-7.450)
[2022-05-08 05:41] LABS: Alveolar/Arterial O2 Gradient 300.7 mmHg
[2022-05-08 05:42] LABS: Site Drawn RIGHT RADIAL
[2022-05-08 05:43] LABS: Arterial Blood Gas Vent Mode CMV; Arterial Blood Gas Ventilator rate 18 /MIN; Device VENTILATOR; Modified Allen's Test Pass
[2022-05-08 05:44] LABS: Arterial Blood Gas PEEP 10 cmH2O; Arterial Blood Gas Tidal Volume 450 ml
[2022-05-08 07:39] LABS: Glucose Point of Care 195 mg/dl (65-105)
[2022-05-08 08:54] LABS: Alanine Aminotransferase 51 U/L (6-50); Albumin Level 2.8 g/dL (3.5-5.1); Alkaline Phosphatase 52 U/L (38-126); Anion Gap 11 mmol/L (8-16); Aspartate Amino Transferase 38 U/L (17-59); Bilirubin,Total 0.9 mg/dL (0.2-1.3); Blood Urea Nitrogen 97 mg/dL (9-20); Calcium 7.7 mg/dL (8.4-10.2); Carbon Dioxide 29 mmol/L (22-30); Chloride 106 mmol/L (98-107); Estimated CRCL calculation 45 ml/min; Estimated Glomerular Filt Rate 45; Glucose 182 mg/dL (65-110); Magnesium 3.3 mg/dL (1.6-2.3); Potassium 3.9 mmol/L (3.4-5.0); Sodium 146 mmol/L (137-145)
--- NOTE | 2022-05-08 09:03 | WPDINTPN ---
Progress Note: A&P Assessment and Plan (1) Septic shock: Code(s): A41.9 - Sepsis, unspecified organism; R65.21 - Severe sepsis with septic shock Status: Acute Assessment and Plan: Septic shock secondary to Haemophilus influenzae bacteremia and pneumonia Off Levophed, since 05/03/2022 morning Conservative IV fluid strategy in light of severe respiratory failure Sedation could also cause some hypotension Currently not on any IV fluids He is currently on IV Rocephin, Levaquin -discontinued vancomycin on 05/02 -05/03 repeat blood culture are negative till now 05/07 persistent fevers Repeat blood sputum cultures sent Replace Nichole replaced. UA unremarkable. Urine culture sent Normal lipase He is already on anticoagulation Antibiotics were changed vancomycin and Rocephin changed to cefepime No significant change in oxygen requirement chest x-ray or respiratory secretions No diarrhea at this time 05/[address] of sinuses chest abdomen pelvis (2) Haemophilus influenzae septicemia: Code(s): A41.3 - Sepsis due to Hemophilus influenzae Status: Acute Assessment and Plan: See above (3) Hemoptysis: Code(s): R04.2 - Hemoptysis Status: Acute Assessment and Plan: Secondary to to pneumonia, coughing, rupture of a small blood vessel, patient was also on Coumadin which contributed -Coumadin was reversed with vitamin K and Kcentra Most recent INR 1.8 No recurrence. Back on therapeutic dose of anticoagulation (4) Respiratory failure with hypoxia: Code(s): J96.91 - Respiratory failure, unspecified with hypoxia Status: Acute Assessment and Plan: Continue mechanical ventilation He is currently on 60% FiO2 and 10 of PEEP and has not made any significant progress CT scan did not suggest any pulmonary edema but suggest consolidation from his pneumonia. His intake and output balance and other exam also does not suggest volume overload ABG reviewed Chest x-ray reviewed Swallow Medrol is being weaned off Continue bronchodilators Minimal ET tube secretions, continue Pulmozyme No hemoptysis at this time Not a candidate for weaning at this time Sedation holiday today (5) Pneumonia: Code(s): J18.9 - Pneumonia, unspecified organism Status: Acute Assessment and Plan: Secondary to Haemophilus influenzae See above (6) COPD (chronic obstructive pulmonary disease): Code(s): J44.9 - Chronic obstructive pulmonary disease, unspecified Status: Acute Assessment and Plan: See above (7) Biventricular CHF (congestive heart failure): Code(s): I50.82 - Biventricular heart failure Status: Acute Assessment and Plan: He has low LVEF 40%-45% and severely enlarged RV with RV diastolic dysfunction, severe pulmonary hypertension with regurgitant tricuspid valve flow. This was noted on his echo.??His pulmonary hypertension is chronic, and he may have an acute component as well. He uses O2 at night, may need O2 in the day. He has COPD. His creat was too high to get a CTA to evaluate for PE. He was fully anticoagulated on admission.? 05/01 CTA chest: Bilateral dependent airspace consolidation which may represent atelectasis and/or pneumonia. No evidence of pulmonary embolism Repeat echocardiogram 04/27 Summary ? 1. Technically challenging exam.? Definity contrast used to improvevisualization. ? 2. Mild left ventricular systolic dysfunction with estimated ejectionfraction 40-45%. ? 3. Severe right ventricular enlargement with RV systolic dysfunction. ? 4. Biatrial dilation. ? 5. Tricuspid regurgitant velocity suggesting pulmonary artery pressures areseverely elevated. ? 6. Atrial fibrillation. (8) Acute kidney injury: Code(s): N17.9 - Acute kidney failure, unspecified Status: Acute Assessment and Plan: 04/27 - BUN was 24 and creat was 1.3, BUN and creat increased on Apr 28 higher BUN 34 and creat 2.0. Likely secondary to sep
[2022-05-08] MEDS: ALBUMIN HUMAN 5% 25 GM/500 ML BTL IV CONT (10:51)
[2022-05-08] MEDS: INSULIN GLARGINE (*BKC) 100 UNITS/ML 55 UNITS SUB-Q (10:54)
[2022-05-08] MEDS: AMIODARONE HCL 200 MG TABLET PO (10:58)
[2022-05-08] MEDS: LACTULOSE 20 GM/30 ML UDC PO (11:00)
[2022-05-08] MEDS: PANTOPRAZOLE SODIUM IV 40 MG VIAL IV PUSH ×2 (11:00→21:40)
[2022-05-08] MEDS: polyethylene glycoL 3350 17 GM POWD.PACK FEED TUBE (11:00)
[2022-05-08] MEDS: MINERAL OIL/WHITE PETROLATUM OINTMENT 1 APPLIC EACH EYE ×2 (11:00→21:40)
[2022-05-08] MEDS: ENOXAPARIN 120 MG/0.8 ML SYRINGE 110 MG SUB-Q ×2 (11:00→21:40)
[2022-05-08] MEDS: TOLNAFTATE 1% POWDER 45 GM BTL 1 APPLIC TOPICAL ×2 (11:02→21:40)
[2022-05-08] MEDS: LACTATED RINGERS 1,000 ML 100 ML IV CONT (11:17)
--- NOTE | 2022-05-08 11:29 | PCFNICU ---
ICU Rounding Note: Pt current nutrition is Vital 1.2 @ 70 ml/h . Nutrition recommendation: Continue current tube feeding order and flushes Last recorded weight is 120 kg. Bowel Motility: + BM 05/08/22 Labs Reviewed: Hgb 12.6, Hct 40.5, Alb 2.8, Na 146, BUN 97, Creat 1.5, Glu 195 Meds Noted: Fentanyl, Versed, Levophed @ 7.5 ml/h; Vancomycin, reglan, miralax, lactulose Skin: WNL Additional Notes: Pt family says pt would not want a trach. Following daily in ICU rounds. Will monitor in ICU rounds and reassessing every Sunday and Sunday. .
[2022-05-08 11:41] LABS: Glucose Point of Care 192 mg/dl (65-105)
[2022-05-08] MEDS: LABETALOL HCL INJ 100 MG/20 ML VIAL 20 MG IV PUSH (14:16)
[2022-05-08] MEDS: FENTANYL 2,500MCG/NS250ML(*CRX 2,500 MCG/250 ML BAG 7.5 MCG IV CONT (16:16)
[2022-05-08] MEDS: ALBUMIN HUMAN 25% 25 GM/100 ML 100 ML IVPB ×2 (17:01→21:38)
[2022-05-08 17:08] LABS: Glucose Point of Care 179 mg/dl (65-105)
[2022-05-08 22:00] LABS: Glucose Point of Care 153 mg/dl (65-105)
[2022-05-08] MEDS: NOREPINEPHRINE 8 MG/D5W 250 ML 8 MG/250 ML BAG 9.38 MG IV CONT (22:12)
[2022-05-09] VITALS (44 sets, daily range): BP systolic 94–139; BP diastolic 55–96; PULSE 81–123; RESP 18–25; TEMP 37.2–38.2; O2SAT 93–100; BMI 40.8
[2022-05-09 00:08] LABS: Glucose Point of Care 149 mg/dl (65-105)
[2022-05-09] MEDS: IPRATROPIUM BR 0.02% INH SOLN 0.5 MG/2.5 ML VIAL INHALATION ×3 (02:56→14:09)
[2022-05-09] MEDS: ALBUTEROL SULFATE NEB 2.5 MG/3 ML INH 5 MG INHALATION ×4 (02:56→21:00)
[2022-05-09] MEDS: CENTRAL LINE FLUSH 10 ML IV PUSH ×3 (04:27→21:27)
[2022-05-09] MEDS: ALBUMIN HUMAN 25% 25 GM/100 ML 100 ML IVPB ×4 (04:27→21:27)
[2022-05-09] MEDS: METOCLOPRAMIDE HCL INJ 10 MG/2 ML VIAL IV PUSH ×4 (04:28→17:32)
[2022-05-09 04:29] LABS: Hematocrit 31.2 % (42.0-52.0); Hemoglobin 9.7 g/dL (14.0-18.0); Mean Corpuscular HGB Conc 31.1 g/dl (32-36); Mean Corpuscular Hemoglobin 29.7 pg (26-34); Mean Corpuscular Volume 95.4 fl (80-100); Mean Platelet Volume 10.8 fl (7.4-10.4); Platelet Count Result 208 k/mm3 (150-375); Red Blood Count 3.27 M/mm3 (4.6-6.20); Red Cell Distribution Width 16.6 % (11.5-14.5); White Blood Count 24.8 K/mm3 (4.5-10.0)
[2022-05-09 05:44] LABS: Alveolar/Arterial O2 Gradient 259.5 mmHg; Base Excess ABG 2.6 mEq/l (+/-2.0); Carboxyhemoglobin 0.3 % THb (0-2.0); Fractional Inspired Oxygen 55 %; HCO3 ABG 27.4 mEq/l (22.0-26.0); Methemoglobin ABG 0.3 %THb (0-1.5); Oxygen Content ABG 13.6 %vol (16.0-22.0); Oxygen Saturation ABG 96.5 % (95.0-100.0); Oxyhemoglobin 94.7 % THb (90.0-100.0); PCO2 ABG 43.4 mmHg (35.0-45.0); PO2 ABG 84.4 mmHg (80.0-100.0); PO2 FiO2 Ratio Arterial Blood 1.53 %; Reduced Hemoglobin 4.7 %THb (0-5.0); Total Hemoglobin 10.1 g/dL (12.0-18.0); pH ABG 7.418 (7.350-7.450)
[2022-05-09 05:45] LABS: Arterial Blood Gas Vent Mode CMV; Arterial Blood Gas Ventilator rate 18 /MIN; Device VENTILATOR; Modified Allen's Test Pass; Site Drawn RIGHT RADIAL
[2022-05-09 05:46] LABS: Arterial Blood Gas PEEP 10 cmH2O; Arterial Blood Gas Tidal Volume 450 ml
[2022-05-09 09:38] LABS: Glucose Point of Care 172 mg/dl (65-105)
[2022-05-09] MEDS: AMIODARONE HCL 200 MG TABLET PO (09:40)
[2022-05-09] MEDS: PANTOPRAZOLE SODIUM IV 40 MG VIAL IV PUSH ×2 (09:43→21:27)
[2022-05-09] MEDS: polyethylene glycoL 3350 17 GM POWD.PACK FEED TUBE (09:43)
[2022-05-09] MEDS: ENOXAPARIN 120 MG/0.8 ML SYRINGE 110 MG SUB-Q ×2 (09:44→21:26)
[2022-05-09] MEDS: LACTULOSE 20 GM/30 ML UDC PO (09:44)
[2022-05-09] MEDS: INSULIN GLARGINE (*BKC) 100 UNITS/ML 55 UNITS SUB-Q (09:50)
[2022-05-09] MEDS: TOLNAFTATE 1% POWDER 45 GM BTL 1 APPLIC TOPICAL ×2 (09:53→21:27)
[2022-05-09 10:21] LABS: Alanine Aminotransferase 41 U/L (6-50); Albumin Level 3.6 g/dL (3.5-5.1); Alkaline Phosphatase 46 U/L (38-126); Anion Gap 10 mmol/L (8-16); Aspartate Amino Transferase 34 U/L (17-59); Bilirubin,Total 0.8 mg/dL (0.2-1.3); Blood Urea Nitrogen 91 mg/dL (9-20); Calcium 8.6 mg/dL (8.4-10.2); Carbon Dioxide 27 mmol/L (22-30); Chloride 119 mmol/L (98-107); Estimated CRCL calculation 60 ml/min; Estimated Glomerular Filt Rate > 60; Glucose 177 mg/dL (65-110); Magnesium 3.3 mg/dL (1.6-2.3); Phosphorus 3.4 mg/dL (2.5-4.5); Potassium 3.7 mmol/L (3.4-5.0); Sodium 156 mmol/L (137-145)
--- NOTE | 2022-05-09 11:21 | PCNFU ---
Nutrition Follow-Up Complete: Inadequate Oral Intake as related to mechanical vent as evidenced by NPO. Goal: Meet estimated nutritional needs Patient is meeting current goal. We will continue current goal. Pt current nutrition is Vital AF 1.2 at 70 ml/hr. Last recorded weight is 118.1 kg, up from 113.5 kg on admit. Bowel Motility:+BM reported 05/08 Labs Reviewed:Na 156, Hgb 9.7, Hct 31.2,Glu 177 Meds Noted: Fentanyl, Versed,Vancomycin, Reglan, Miralax, lactulose, Cefepime. Skin: WNL Additional Notes: Patient day 12 on mechanical vent. Tube feedings continues to be tolerated of Vital AF 1.2 at 70 ml/hr which is providing 1848 kcals/116 gms protein/1249 ml water. Meeting 92% caloric needs and 100% protein needs. Free water flush increased today from 60 ml to 120 ml q 4 hours. Na increased to 156 from 146 yesterday. Agree with diet orders. Will monitor in ICU rounds and reassessing every Sunday and Sunday.
[2022-05-09 12:41] LABS: Glucose Point of Care 193 mg/dl (65-105)
--- NOTE | 2022-05-09 13:27 | WPDINTPN ---
Progress Note: A&P Assessment and Plan (1) Septic shock: Code(s): A41.9 - Sepsis, unspecified organism; R65.21 - Severe sepsis with septic shock Status: Acute Assessment and Plan: Septic shock secondary to Haemophilus influenzae bacteremia and pneumonia Off Levophed, since 05/03/2022 morning Conservative IV fluid strategy in light of severe respiratory failure Sedation could also cause some hypotension Currently not on any IV fluids He is currently on IV Rocephin, Levaquin -discontinued vancomycin on 05/02 -05/03 repeat blood culture are negative till now 05/07 persistent fevers Repeat blood sputum cultures sent Replace Nichole replaced. UA unremarkable. Urine culture sent Normal lipase He is already on anticoagulation No significant change in oxygen requirement chest x-ray or respiratory secretions No diarrhea at this time 05/08 CT of chest abdomen pelvis: Adynamic ileus a sigmoid colon stricture, small pleural effusions, left inguinal hernia containing fat. -05/08: CT sinuses deviation of nasal septum, minimal mucoperiosteal thickening of the inferior left maxillary sinus. 05/09: Fever curves have improved, patient did have to go on Levophed -overnight which has currently been turned off - currently vancomycin and cefepime which was started on 05/07/2022 -05/07 blood cultures growing Staph epididymis / bottles, will repeat blood cultures -05/07 sputum and urine cultures were negative -WBC count trending down (2) Haemophilus influenzae septicemia: Code(s): A41.3 - Sepsis due to Hemophilus influenzae Status: Acute Assessment and Plan: See above (3) Hemoptysis: Code(s): R04.2 - Hemoptysis Status: Acute Assessment and Plan: Secondary to to pneumonia, coughing, rupture of a small blood vessel, patient was also on Coumadin which contributed -Coumadin was reversed with vitamin K and Kcentra Most recent INR 1.8 No recurrence. Back on therapeutic dose of anticoagulation (4) Respiratory failure with hypoxia: Code(s): J96.91 - Respiratory failure, unspecified with hypoxia Status: Acute Assessment and Plan: Continue mechanical ventilation, patient was intubated of 04/27/2022 He is currently on 50% FiO2 and 10 of PEEP and has not made any significant progress, wean to maintain O2 sats greater 92% CT scan did not suggest any pulmonary edema but suggest consolidation from his pneumonia. His intake and output balance and other exam also does not suggest volume overload ABG reviewed Chest x-ray reviewed Off Solu-Medrol Continue bronchodilators Minimal ET tube secretions, continue Pulmozyme No hemoptysis at this time Not a candidate for weaning at this time Sedation holiday today -will discuss with family regarding tracheostomy and PEG tube placement (5) Pneumonia: Code(s): J18.9 - Pneumonia, unspecified organism Status: Acute Assessment and Plan: Secondary to Haemophilus influenzae See above (6) COPD (chronic obstructive pulmonary disease): Code(s): J44.9 - Chronic obstructive pulmonary disease, unspecified Status: Acute Assessment and Plan: See above (7) Biventricular CHF (congestive heart failure): Code(s): I50.82 - Biventricular heart failure Status: Acute Assessment and Plan: He has low LVEF 40%-45% and severely enlarged RV with RV diastolic dysfunction, severe pulmonary hypertension with regurgitant tricuspid valve flow. This was noted on his echo.??His pulmonary hypertension is chronic, and he may have an acute component as well. He uses O2 at night, may need O2 in the day. He has COPD. His creat was too high to get a CTA to evaluate for PE. He was fully anticoagulated on admission.? 05/01 CTA chest: Bilateral dependent airspace consolidation which may represent atelectasis and/or pneumonia. No evidence of pulmonary embolism Repeat echocardiogram 04/27 Summary ? 1. Technically challenging exam.?
[2022-05-09] MEDS: ACETAMINOPHEN ELIXIR 325 MG/10.15 ML UDC 650 MG FEED TUBE (14:34)
[2022-05-09 17:15] LABS: Glucose Point of Care 169 mg/dl (65-105)
[2022-05-09] MEDS: MIDAZOLAM 100MG/NS 100ML(*CRX) 100 MG/100 ML BAG IV CONT (21:24)
[2022-05-09] MEDS: MINERAL OIL/WHITE PETROLATUM OINTMENT 1 APPLIC EACH EYE (21:27)
[2022-05-10] VITALS (36 sets, daily range): BP systolic 90–134; BP diastolic 60–81; PULSE 91–120; RESP 18–94; TEMP 37.7–38.4; O2SAT 91–98
[2022-05-10 00:11] LABS: Vancomycin Trough 15.6 ug/mL (10.0-20.0)
[2022-05-10] MEDS: FENTANYL 2,500MCG/NS250ML(*CRX 2,500 MCG/250 ML BAG 10 MCG IV CONT (00:16)
[2022-05-10] MEDS: ACETAMINOPHEN ELIXIR 325 MG/10.15 ML UDC 650 MG FEED TUBE ×2 (00:18→18:53)
[2022-05-10] MEDS: METOCLOPRAMIDE HCL INJ 10 MG/2 ML VIAL IV PUSH ×5 (00:18→23:12)
[2022-05-10 00:42] LABS: Glucose Point of Care 141 mg/dl (65-105)
[2022-05-10] MEDS: IPRATROPIUM BR 0.02% INH SOLN 0.5 MG/2.5 ML VIAL INHALATION ×4 (01:48→20:06)
[2022-05-10] MEDS: ALBUTEROL SULFATE NEB 2.5 MG/3 ML INH 5 MG INHALATION ×4 (01:48→20:06)
[2022-05-10 05:17] LABS: Alveolar/Arterial O2 Gradient 91.1 mmHg; Base Excess ABG 5.7 mEq/l (+/-2.0); Carboxyhemoglobin 0.3 % THb (0-2.0); Fractional Inspired Oxygen 30 %; HCO3 ABG 30.2 mEq/l (22.0-26.0); Methemoglobin ABG 0.2 %THb (0-1.5); Oxygen Content ABG 11.8 %vol (16.0-22.0); Oxygen Saturation ABG 94.9 % (95.0-100.0); Oxyhemoglobin 92.9 % THb (90.0-100.0); PO2 ABG 71.1 mmHg (80.0-100.0); PO2 FiO2 Ratio Arterial Blood 2.37 %; Reduced Hemoglobin 6.6 %THb (0-5.0); pH ABG 7.455 (7.350-7.450)
[2022-05-10 05:18] LABS: Device VENTILATOR; Modified Allen's Test Pass; Site Drawn RIGHT RADIAL
[2022-05-10 05:19] LABS: Arterial Blood Gas PEEP 10 cmH2O; Arterial Blood Gas Tidal Volume 450 ml; Arterial Blood Gas Vent Mode CMV; Arterial Blood Gas Ventilator rate 18 /MIN
[2022-05-10] MEDS: ALBUMIN HUMAN 25% 25 GM/100 ML 100 ML IVPB ×2 (05:21→09:37)
[2022-05-10] MEDS: CENTRAL LINE FLUSH 10 ML IV PUSH ×3 (05:22→22:15)
[2022-05-10 05:47] LABS: Hematocrit 24.1 % (42.0-52.0); Hemoglobin 7.6 g/dL (14.0-18.0); Mean Corpuscular HGB Conc 31.5 g/dl (32-36); Mean Corpuscular Hemoglobin 29.9 pg (26-34); Mean Corpuscular Volume 94.9 fl (80-100); Mean Platelet Volume 11.2 fl (7.4-10.4); Platelet Count Result 176 k/mm3 (150-375); Red Blood Count 2.54 M/mm3 (4.6-6.20); Red Cell Distribution Width 16.9 % (11.5-14.5); White Blood Count 22.9 K/mm3 (4.5-10.0)
[2022-05-10 05:58] LABS: Alanine Aminotransferase 27 U/L (6-50); Albumin Level 3.5 g/dL (3.5-5.1); Alkaline Phosphatase 28 U/L (38-126); Anion Gap 11 mmol/L (8-16); Aspartate Amino Transferase 30 U/L (17-59); Bilirubin,Total 1.3 mg/dL (0.2-1.3); Blood Urea Nitrogen 83 mg/dL (9-20); Calcium 7.7 mg/dL (8.4-10.2); Carbon Dioxide 30 mmol/L (22-30); Chloride 105 mmol/L (98-107); Estimated CRCL calculation 57 ml/min; Estimated Glomerular Filt Rate 59; Glucose 138 mg/dL (65-110); Magnesium 3.2 mg/dL (1.6-2.3); Phosphorus 3.5 mg/dL (2.5-4.5); Potassium 3.5 mmol/L (3.4-5.0); Sodium 146 mmol/L (137-145)
[2022-05-10] MEDS: INSULIN GLARGINE (*BKC) 100 UNITS/ML 55 UNITS SUB-Q (09:34)
[2022-05-10] MEDS: PANTOPRAZOLE SODIUM IV 40 MG VIAL IV PUSH ×2 (09:34→20:29)
[2022-05-10] MEDS: MINERAL OIL/WHITE PETROLATUM OINTMENT 1 APPLIC EACH EYE ×2 (09:34→20:28)
[2022-05-10] MEDS: AMIODARONE HCL 200 MG TABLET PO (09:35)
[2022-05-10] MEDS: TOLNAFTATE 1% POWDER 45 GM BTL 1 APPLIC TOPICAL ×2 (09:37→20:29)
[2022-05-10 11:57] LABS: Lactate Dehydrogenase 192 U/L (120-246)
[2022-05-10 12:03] LABS: Glucose Point of Care 164 mg/dl (65-105)
--- NOTE | 2022-05-10 12:25 | PCFNICU ---
ICU Rounding Note: Pt current nutrition is Tube feed vital AF 1.2. Last recorded weight is 122.8 kg. Bowel Motility: last BM 05/08 Labs Reviewed:Hgb: 7.6, Hct: 24.1, Na: 146, BUN: 83, Glu: 138 Meds Noted:tylenol elixir, albutein, albuterol, pacerone, dulcolax suppositary, maxipine, lovenox, fentanyl, gulcagon, glutose, novolog, lantus, atrovent, normodyn, lactolose, reglan, versed, levophed, protonix, miralax, tolnaftate, vancomycin Skin: rt foot reddened, bilateral leg dr and edematous Additional Notes: Possible ileus, will continue pt on tube feeding as Pt is tolerating feeding rate 70ml/hr. Day 13 on vent Following daily in ICU rounds. Will monitor in ICU rounds and reassessing every Sunday and Sunday.
--- NOTE | 2022-05-10 14:43 | WPDINTPN ---
Progress Note: A&P Assessment and Plan (1) Septic shock: Code(s): A41.9 - Sepsis, unspecified organism; R65.21 - Severe sepsis with septic shock Status: Acute Assessment and Plan: Septic shock secondary to Haemophilus influenzae bacteremia and pneumonia Off Levophed, since 05/03/2022 morning Conservative IV fluid strategy in light of severe respiratory failure Sedation could also cause some hypotension Currently not on any IV fluids He is currently on IV Rocephin, Levaquin -discontinued vancomycin on 05/02 -05/03 repeat blood culture are negative till now 05/07 persistent fevers Repeat blood sputum cultures sent Replace Nichole replaced. UA unremarkable. Urine culture sent Normal lipase He is already on anticoagulation No significant change in oxygen requirement chest x-ray or respiratory secretions No diarrhea at this time 05/08 CT of chest abdomen pelvis: Adynamic ileus a sigmoid colon stricture, small pleural effusions, left inguinal hernia containing fat. -05/08: CT sinuses deviation of nasal septum, minimal mucoperiosteal thickening of the inferior left maxillary sinus. 05/09: Fever curves have improved, patient did have to go on Levophed -overnight which has currently been turned off - currently vancomycin and cefepime which was started on 05/07/2022 -05/07 blood cultures growing Staph epididymis / bottles, repeating about cultures pending -05/07 sputum and urine cultures were negative -WBC count trending down (2) Haemophilus influenzae septicemia: Code(s): A41.3 - Sepsis due to Hemophilus influenzae Status: Acute Assessment and Plan: See above (3) Hemoptysis: Code(s): R04.2 - Hemoptysis Status: Acute Assessment and Plan: Secondary to to pneumonia, coughing, rupture of a small blood vessel, patient was also on Coumadin which contributed -Coumadin was reversed with vitamin K and Kcentra Most recent INR 1.8 No recurrence. Back on therapeutic dose of anticoagulation (4) Respiratory failure with hypoxia: Code(s): J96.91 - Respiratory failure, unspecified with hypoxia Status: Acute Assessment and Plan: Continue mechanical ventilation, patient was intubated of 04/27/2022 He is currently on 50% FiO2 and 10 of PEEP and has not made any significant progress, wean to maintain O2 sats greater 92% CT scan did not suggest any pulmonary edema but suggest consolidation from his pneumonia. His intake and output balance and other exam also does not suggest volume overload ABG reviewed Chest x-ray reviewed Off Solu-Medrol Continue bronchodilators Minimal ET tube secretions, continue Pulmozyme No hemoptysis at this time Not a candidate for weaning at this time Will start weaning sedation, placed patient on pressure support ventilation to evaluate for extubation (5) Pneumonia: Code(s): J18.9 - Pneumonia, unspecified organism Status: Acute Assessment and Plan: Secondary to Haemophilus influenzae See above (6) COPD (chronic obstructive pulmonary disease): Code(s): J44.9 - Chronic obstructive pulmonary disease, unspecified Status: Acute Assessment and Plan: See above (7) Biventricular CHF (congestive heart failure): Code(s): I50.82 - Biventricular heart failure Status: Acute Assessment and Plan: He has low LVEF 40%-45% and severely enlarged RV with RV diastolic dysfunction, severe pulmonary hypertension with regurgitant tricuspid valve flow. This was noted on his echo.??His pulmonary hypertension is chronic, and he may have an acute component as well. He uses O2 at night, may need O2 in the day. He has COPD. His creat was too high to get a CTA to evaluate for PE. He was fully anticoagulated on admission.? 05/01 CTA chest: Bilateral dependent airspace consolidation which may represent atelectasis and/or pneumonia. No evidence of pulmonary embolism Repeat echocardiogram 04/27 Summary ? 1. Technically chall
[2022-05-10 19:08] LABS: Glucose Point of Care 143 mg/dl (65-105)
[2022-05-10 22:58] LABS: Iron 25 ug/dL (49-181)
[2022-05-10 23:07] LABS: Percent Iron Saturation 15 % (20-50)
[2022-05-10 23:18] LABS: Glucose Point of Care 142 mg/dl (65-105)
[2022-05-11] VITALS (39 sets, daily range): BP systolic 75–114; BP diastolic 54–98; PULSE 85–110; RESP 18–24; TEMP 37–37.9; O2SAT 92–100
--- NOTE | 2022-05-11 | ECHOL_ITS ---
Patient Info Name: Martínez Martinez Age: 77 years : 1945 Gender: Male Ht: 67 in Wt: 274 lbs BSA: 2.49 m2 HR: 91 bpm BP: 106 / 73 mmHg Heart Rhythm: Atrial Fibrillation Technical Quality: Good Exam Date: 05/11/2022 3:04 PM Exam Location: [facility] Patient Status: Inpatient Admit Date: 04/27/2022 Staff Ordering Physician: Elia Chatman MD [employer] Supervisor: Ninfa Staples RDCS Attending Provider: Adrian Arias MD Referring Physician: Lurdes CANAS; Exam Type: CA echo limited Study Info Indications - CHECK FOR VEGETATIONS, STAPH BACTEREMIA Limited two-dimensional transthoracic echocardiogram is performed. Summary 1. Left ventricular systolic function is normal, estimated at 55-60%. 2. Right ventricular chamber dimension is severely enlarged. 3. Left atrial chamber dimension is severely enlarged. 4. Right atrial chamber dimension is severely enlarged. 5. There is mild mitral valve regurgitation. 6. Left pleural effusion seen. 7. No definite valvular vegetations seen, however, cannot exclude vegetations as some valves were not well visualized. Consider CHERRI if clinical suspicion for infective endocarditis is high. Recommendations * Recommend transesophageal echocardiogram. Left Ventricle Left ventricular chamber dimension is normal. Left ventricular systolic function is normal, estimated at 55-60%. Right Ventricle Right ventricular chamber dimension is severely enlarged. Left Atria Left atrial chamber dimension is severely enlarged. Right Atria Right atrial chamber dimension is severely enlarged. Aortic Valve The aortic valve is not well visualized. There is no aortic valve regurgitation. Pulmonic Valve The pulmonic valve is not well visualized. Mitral Valve The mitral valve has normal leaflets. There is no mitral valve stenosis. There is mild mitral valve regurgitation. Tricuspid Valve The tricuspid valve leaflets are normal. There is no significant tricuspid valve stenosis. Pericardium/Pleural Left pleural effusion seen. There is no pericardial effusion. Aorta The aortic root size at the sinus of Valsalva is not well visualized. Report Signatures
[2022-05-11] MEDS: MIDAZOLAM 100MG/NS 100ML(*CRX) 100 MG/100 ML BAG IV CONT (00:17)
[2022-05-11] MEDS: IPRATROPIUM BR 0.02% INH SOLN 0.5 MG/2.5 ML VIAL INHALATION ×4 (02:30→21:48)
[2022-05-11] MEDS: ALBUTEROL SULFATE NEB 2.5 MG/3 ML INH 5 MG INHALATION ×4 (02:30→21:48)
[2022-05-11 04:40] LABS: Mean Corpuscular HGB Conc 29.6 g/dl (32-36); Mean Corpuscular Hemoglobin 30.9 pg (26-34); Mean Corpuscular Volume 104.5 fl (80-100); Platelet Count Result 118 k/mm3 (150-375); White Blood Count 17.6 K/mm3 (4.5-10.0)
[2022-05-11 04:42] LABS: Hemoglobin 6.8 g/dL (14.0-18.0)
[2022-05-11 05:28] LABS: Alveolar/Arterial O2 Gradient 161.8 mmHg; Base Excess ABG 1.7 mEq/l (+/-2.0); Carboxyhemoglobin 0.3 % THb (0-2.0); Fractional Inspired Oxygen 40 %; HCO3 ABG 26.5 mEq/l (22.0-26.0); Methemoglobin ABG 0.3 %THb (0-1.5); Oxygen Content ABG 10.8 %vol (16.0-22.0); Oxygen Saturation ABG 95.1 % (95.0-100.0); Oxyhemoglobin 92.8 % THb (90.0-100.0); PCO2 ABG 42.5 mmHg (35.0-45.0); PO2 ABG 74.5 mmHg (80.0-100.0); PO2 FiO2 Ratio Arterial Blood 1.86 %; Reduced Hemoglobin 6.6 %THb (0-5.0); Total Hemoglobin 8.2 g/dL (12.0-18.0); pH ABG 7.412 (7.350-7.450)
[2022-05-11 05:29] LABS: Arterial Blood Gas PEEP 10 cmH2O; Arterial Blood Gas Tidal Volume 450 ml; Arterial Blood Gas Vent Mode CMV; Arterial Blood Gas Ventilator rate 18 /MIN; Device VENTILATOR; Modified Allen's Test Unable to perform; Site Drawn RIGHT RADIAL
[2022-05-11] MEDS: CENTRAL LINE FLUSH 10 ML IV PUSH ×3 (05:29→20:33)
[2022-05-11] MEDS: METOCLOPRAMIDE HCL INJ 10 MG/2 ML VIAL IV PUSH ×4 (05:29→23:03)
[2022-05-11 05:53] LABS: Alanine Aminotransferase 30 U/L (6-50); Albumin Level 3.4 g/dL (3.5-5.1); Alkaline Phosphatase 31 U/L (38-126); Anion Gap 14 mmol/L (8-16); Aspartate Amino Transferase 43 U/L (17-59); Bilirubin,Total 1.3 mg/dL (0.2-1.3); Blood Urea Nitrogen 115 mg/dL (9-20); Calcium 7.6 mg/dL (8.4-10.2); Carbon Dioxide 27 mmol/L (22-30); Chloride 101 mmol/L (98-107); Estimated CRCL calculation 32 ml/min; Estimated Glomerular Filt Rate 29; Glucose 122 mg/dL (65-110); Magnesium 3.3 mg/dL (1.6-2.3); Phosphorus 5.8 mg/dL (2.5-4.5); Potassium 4.3 mmol/L (3.4-5.0); Sodium 142 mmol/L (137-145)
[2022-05-11 07:36] LABS: INR 1.3; Prothrombin Time 15.3 Seconds (11.1-14.7)
[2022-05-11] MEDS: PANTOPRAZOLE SODIUM IV 40 MG VIAL IV PUSH ×2 (08:34→20:32)
[2022-05-11] MEDS: AMIODARONE HCL 200 MG TABLET PO (08:34)
[2022-05-11] MEDS: LACTULOSE 20 GM/30 ML UDC PO (08:35)
[2022-05-11] MEDS: polyethylene glycoL 3350 17 GM POWD.PACK FEED TUBE (08:35)
[2022-05-11] MEDS: SODIUM CHLORIDE 0.9% IV 250 ML 30 ML IV CONT (08:36)
[2022-05-11] MEDS: MINERAL OIL/WHITE PETROLATUM OINTMENT 1 APPLIC EACH EYE ×2 (08:37→20:32)
--- NOTE | 2022-05-11 08:39 | PCNSR ---
On 05/10/22, the student, Raffy Jose, provided care and completed [facility] on [facility]. I have reviewed the student's documentation and agree with the findings.
[2022-05-11] MEDS: FENTANYL 2,500MCG/NS250ML(*CRX 2,500 MCG/250 ML BAG IV CONT (08:49)
[2022-05-11] MEDS: INSULIN GLARGINE (*BKC) 100 UNITS/ML 55 UNITS SUB-Q (08:51)
[2022-05-11] MEDS: TOLNAFTATE 1% POWDER 45 GM BTL 1 APPLIC TOPICAL ×2 (08:51→20:33)
--- NOTE | 2022-05-11 08:53 | WPDINTPN ---
Progress Note: A&P Assessment and Plan (1) Septic shock: Code(s): A41.9 - Sepsis, unspecified organism; R65.21 - Severe sepsis with septic shock Status: Acute Assessment and Plan: Septic shock secondary to Haemophilus influenzae bacteremia and pneumonia Off Levophed, since 05/03/2022 morning Conservative IV fluid strategy in light of severe respiratory failure Sedation could also cause some hypotension Currently not on any IV fluids He is currently on IV Rocephin, Levaquin -discontinued vancomycin on 05/02 -05/03 repeat blood culture are negative till now 05/07 persistent fevers Repeat blood sputum cultures sent Replace Nichole replaced. UA unremarkable. Urine culture sent Normal lipase He is already on anticoagulation No significant change in oxygen requirement chest x-ray or respiratory secretions No diarrhea at this time 05/08 CT of chest abdomen pelvis: Adynamic ileus a sigmoid colon stricture, small pleural effusions, left inguinal hernia containing fat. -05/08: CT sinuses deviation of nasal septum, minimal mucoperiosteal thickening of the inferior left maxillary sinus. 05/09: Fever curves have improved, patient did have to go on Levophed -overnight which has currently been turned off - currently vancomycin and cefepime which was started on 05/07/2022 -05/07 blood cultures growing Staph epididymis 2/2 bottles, repeating about cultures pending -05/07 sputum and urine cultures were negative -WBC count trending down 05/11/2022: Patient continues to be febrile with a T-max 101.1 -worsening creatinine, borderline blood pressures, not requiring vasopressors at this time -remains on vancomycin and cefepime, leukocytosis gradually trending down (2) Haemophilus influenzae septicemia: Code(s): A41.3 - Sepsis due to Hemophilus influenzae Status: Acute Assessment and Plan: See above (3) Hemoptysis: Code(s): R04.2 - Hemoptysis Status: Acute Assessment and Plan: Secondary to to pneumonia, coughing, rupture of a small blood vessel, patient was also on Coumadin which contributed -Coumadin was reversed with vitamin K and Kcentra Most recent INR 1.8 -therapeutic Lovenox on discontinued on 05/11/2022 -05/11/2022 patient anemic hemoglobin of 6.8, (4) Respiratory failure with hypoxia: Code(s): J96.91 - Respiratory failure, unspecified with hypoxia Status: Acute Assessment and Plan: Continue mechanical ventilation, patient was intubated of 04/27/2022 He is currently on 50% FiO2 and 10 of PEEP and has not made any significant progress, wean to maintain O2 sats greater 92% CT scan did not suggest any pulmonary edema but suggest consolidation from his pneumonia. His intake and output balance and other exam also does not suggest volume overload ABG reviewed Chest x-ray reviewed Off Solu-Medrol Continue bronchodilators Minimal ET tube secretions, continue Pulmozyme No hemoptysis at this time Will start weaning sedation, once patient is more awake will weaning trials, be unlikely because he has abdominal distension which may hinder in his weaning process (5) Pneumonia: Code(s): J18.9 - Pneumonia, unspecified organism Status: Acute Assessment and Plan: Secondary to Haemophilus influenzae See above (6) COPD (chronic obstructive pulmonary disease): Code(s): J44.9 - Chronic obstructive pulmonary disease, unspecified Status: Acute Assessment and Plan: See above (7) Biventricular CHF (congestive heart failure): Code(s): I50.82 - Biventricular heart failure Status: Acute Assessment and Plan: He has low LVEF 40%-45% and severely enlarged RV with RV diastolic dysfunction, severe pulmonary hypertension with regurgitant tricuspid valve flow. This was noted on his echo.??His pulmonary hypertension is chronic, and he may have an acute component as well. He uses O2 at night, may need O2 in the day. He has COPD. His creat wa
--- NOTE | 2022-05-11 11:34 | PCFNICU ---
ICU Rounding Note: Pt current nutrition is NPO. Last recorded weight is 124.4 kg. Bowel Motility: 05/08 Labs Reviewed:Hgb: 6.8, Hct:2.3, Alb:3.4, GFR:29, BUN:115, Cr: 2.2, Glu: 122 Meds Noted: tylenol, albutein, albuterol, Pacerone, dulcolax suppository, mxipime, lovenox, fentanyl, gulcagon, glutose, novolog, lantus, antrovent, normodyn, lactulose, reglan, versed, levophed, protonix, mirialx, tolnaftate, vancomycin Skin: no wounds. Rt tracey is red, bilateral legs dry and edematous Additional Notes: Day 14 on mechanical vent. Tube feeding has been discontinued due to poor tolerance and ileus. Previous chest scans have revealed no improvements. Pt is getting CT scan for further assessment. Possible tracheostomy and PEG placement. Will reassess feeding post CT scan results and MD consult. Following daily in ICU rounds. Will monitor in ICU rounds and reassessing every Sunday and Sunday.
--- NOTE | 2022-05-11 11:37 | WPDGICN ---
Assessment and Plan Assessment and plan (1) Anemia: Code(s): D64.9 - Anemia, unspecified Status: Acute Assessment and Plan: to sulfa last 3 days his blood counts have dropped dramatically from hemoglobin over 12, to 6.8 at present. He has not had melanotic stools. Staff has seen some coffee-ground material and this morning some red blood in his NG tube. EGD will be done today. We have attempted to reach the family to get consent so far have not been able to. (2) Respiratory failure with hypoxia: Code(s): J96.91 - Respiratory failure, unspecified with hypoxia Status: Acute Assessment and Plan: He was intubated shortly after admission because of respiratory failure. (3) Coffee ground emesis: Code(s): K92.0 - Hematemesis Status: Acute Assessment and Plan: He apparently had some coffee-ground material in his NG tube shortly after admission. His NG tube has been use for tube feedings hence has not been used for suction most of the time (4) Atrial fibrillation: Code(s): I48.91 - Unspecified atrial fibrillation Status: Acute Assessment and Plan: he was on warfarin at home. He had been receiving Lovenox but that was discontinued yesterday. (5) Haemophilus influenzae septicemia: Code(s): A41.3 - Sepsis due to Hemophilus influenzae Status: Acute Assessment and Plan: He is on multiple antibiotics, currently vancomycin and cefepime (6) Abdominal distension: Code(s): R14.0 - Abdominal distension (gaseous) Status: Acute Assessment and Plan: CT scan has been done and shows only scant ascites. It does show persistent distention of the ascending and transverse colon consistent with ileus. GI Consult Note Consult date/time: 05/11/22 11:37 HPI: Martínez Martinez is a 77 year old male was been hospitalized for 2 weeks now. He came in coughing up blood.? The patient had been complaining of coughing up blood since last night.? Patient has a history of COPD, congestive heart failure and atrial fibrillation.? The patient had been on Coumadin.? Chest x-ray was read as worsened airspace opacities in the right lower lung zones and in all left lung zones consistent with pulmonary edema versus pneumonia.? Cardiomegaly.? The patient was given nebulizer treatments, Solu-Medrol, morphine, Zofran, Lasix, azithromycin, Levaquin, vancomycin, vitamin K and Kcentra. he has been intubated since April 27. He has had an acute drop in his hemoglobin which was 12.6 on , 7.6 yesterday and 6.8 today. He had been on Lovenox and that has been held. He is being treated for Haemophilus influenzae bacteremia and pneumonia. Currently is on vancomycin and cefepime, and he continues to run fevers. CT scan just done shows; 1. Small bilateral pleural effusions with dependent compressive atelectasis in the bilateral lower lobes. No pneumonia appreciated although superimposed pneumonia cannot be excluded in the atelectatic portions of the lower lobes. 2. Cardiomegaly. 3. Small to moderate amount of ascites scattered throughout the abdomen and pelvis. 4. Persistent distention of the ascending and transverse colon without evident transition point or obstructing mass most likely related to ileus. 5. Small to moderate amount of ascites in the abdomen and pelvis including extension of some ascites along with fat pad moderate-sized direct left inguinal hernia. [facility] Past Medical History Medical History Atrial fibrillation Constipation COPD (chronic obstructive pulmonary disease) HTN (hypertension) with goal to be determined Hyperlipidemia Neuropathy Surgical History Surgical History H/O cataract extraction History of appendectomy S/P repair of hydrocele S/P tonsillectomy and adenoidectomy Family History Family History (Reviewed 05/11/22
[2022-05-11 12:01] LABS: Glucose Point of Care 106 mg/dl (65-105)
[2022-05-11] MEDS: SODIUM CHLORIDE 0.9% IV 1,000 ML 100 ML IV CONT ×2 (12:04→23:02)
--- NOTE | 2022-05-11 13:17 | PCNSR ---
On 05/11/22, the student, Raffy Jose, provided care and completed [facility] documentation on this patient. I have reviewed the student's documentation and agree with the findings.
[2022-05-11 17:59] LABS: Glucose Point of Care 80 mg/dl (65-105)
[2022-05-11 18:25] LABS: Glucose Point of Care 85 mg/dl (65-105)
[2022-05-11] MEDS: NOREPINEPHRINE 8 MG/D5W 250 ML 8 MG/250 ML BAG 9.38 MG IV CONT (20:30)
[2022-05-11 23:10] LABS: Glucose Point of Care 87 mg/dl (65-105)
[2022-05-12] VITALS (47 sets, daily range): BP systolic 102–139; BP diastolic 59–102; PULSE 85–106; RESP 18–25; TEMP 36.7–37.5; O2SAT 87–100
[2022-05-12] MEDS: MIDAZOLAM 100MG/NS 100ML(*CRX) 100 MG/100 ML BAG IV CONT (01:28)
[2022-05-12] MEDS: IPRATROPIUM BR 0.02% INH SOLN 0.5 MG/2.5 ML VIAL INHALATION ×4 (02:00→20:50)
[2022-05-12] MEDS: ALBUTEROL SULFATE NEB 2.5 MG/3 ML INH 5 MG INHALATION ×4 (02:00→20:50)
[2022-05-12] MEDS: FENTANYL 2,500MCG/NS250ML(*CRX 2,500 MCG/250 ML BAG 7.5 MCG IV CONT (02:54)
[2022-05-12] MEDS: METOCLOPRAMIDE HCL INJ 10 MG/2 ML VIAL IV PUSH ×4 (05:38→23:43)
[2022-05-12] MEDS: CENTRAL LINE FLUSH 10 ML IV PUSH ×3 (05:38→20:19)
[2022-05-12 05:43] LABS: Glucose Point of Care 92 mg/dl (65-105)
[2022-05-12 05:49] LABS: Alveolar/Arterial O2 Gradient 105.6 mmHg; Base Excess ABG -1.3 mEq/l (+/-2.0); Carboxyhemoglobin 0.3 % THb (0-2.0); Fractional Inspired Oxygen 30 %; HCO3 ABG 22.7 mEq/l (22.0-26.0); Methemoglobin ABG 0.3 %THb (0-1.5); Oxygen Content ABG 10.2 %vol (16.0-22.0); Oxygen Saturation ABG 94.3 % (95.0-100.0); Oxyhemoglobin 90.7 % THb (90.0-100.0); PCO2 ABG 34.3 mmHg (35.0-45.0); PO2 FiO2 Ratio Arterial Blood 2.27 %; Reduced Hemoglobin 8.7 %THb (0-5.0); Total Hemoglobin 7.9 g/dL (12.0-18.0); pH ABG 7.438 (7.350-7.450)
[2022-05-12 05:50] LABS: Arterial Blood Gas PEEP 10 cmH2O; Arterial Blood Gas Tidal Volume 450 ml; Arterial Blood Gas Vent Mode CMV; Arterial Blood Gas Ventilator rate 18 /MIN; Device VENTILATOR; Modified Allen's Test Unable to perform; Site Drawn RIGHT RADIAL
[2022-05-12 06:47] LABS: Hematocrit 23.2 % (42.0-52.0); Hemoglobin 7.5 g/dL (14.0-18.0); Mean Corpuscular HGB Conc 32.3 g/dl (32-36); Mean Corpuscular Hemoglobin 30.2 pg (26-34); Mean Corpuscular Volume 93.5 fl (80-100); Mean Platelet Volume 11.3 fl (7.4-10.4); Platelet Count Result 176 k/mm3 (150-375); Red Blood Count 2.48 M/mm3 (4.6-6.20); Red Cell Distribution Width 17.3 % (11.5-14.5); White Blood Count 13.3 K/mm3 (4.5-10.0)
[2022-05-12 07:05] LABS: Alanine Aminotransferase 35 U/L (6-50); Albumin Level 3.1 g/dL (3.5-5.1); Alkaline Phosphatase 36 U/L (38-126); Anion Gap 13 mmol/L (8-16); Aspartate Amino Transferase 48 U/L (17-59); Bilirubin,Total 1.2 mg/dL (0.2-1.3); Blood Urea Nitrogen 111 mg/dL (9-20); Calcium 7.5 mg/dL (8.4-10.2); Carbon Dioxide 23 mmol/L (22-30); Chloride 106 mmol/L (98-107); Estimated CRCL calculation 39 ml/min; Estimated Glomerular Filt Rate 37; Glucose 85 mg/dL (65-110); Magnesium 3.3 mg/dL (1.6-2.3); Phosphorus 5.6 mg/dL (2.5-4.5); Potassium 3.6 mmol/L (3.4-5.0); Sodium 142 mmol/L (137-145)
[2022-05-12] MEDS: AMIODARONE HCL 200 MG TABLET PO (08:55)
[2022-05-12 09:35] LABS: Glucose Point of Care 73 mg/dl (65-105)
[2022-05-12] MEDS: MINERAL OIL/WHITE PETROLATUM OINTMENT 1 APPLIC EACH EYE ×2 (09:40→20:13)
[2022-05-12] MEDS: TOLNAFTATE 1% POWDER 45 GM BTL 1 APPLIC TOPICAL ×2 (09:40→20:13)
[2022-05-12] MEDS: PANTOPRAZOLE SODIUM IV 40 MG VIAL IV PUSH ×2 (09:41→20:19)
--- NOTE | 2022-05-12 12:15 | P.PNINT_ITS ---
Progress Note: A&P Assessment and Plan (1) Septic shock: Code(s): A41.9 - Sepsis, unspecified organism; R65.21 - Severe sepsis with septic shock Status: Acute Assessment and Plan: Septic shock secondary to Haemophilus influenzae bacteremia and pneumonia Off Levophed, since 05/03/2022 morning Conservative IV fluid strategy in light of severe respiratory failure Sedation could also cause some hypotension Currently not on any IV fluids He is currently on IV Rocephin, Levaquin -discontinued vancomycin on 05/02 -05/03 repeat blood culture are negative till now 05/07 persistent fevers Repeat blood sputum cultures sent Replace Nichole replaced. UA unremarkable. Urine culture sent Normal lipase He is already on anticoagulation No significant change in oxygen requirement chest x-ray or respiratory secretions No diarrhea at this time 05/08 CT of chest abdomen pelvis: Adynamic ileus a sigmoid colon stricture, small pleural effusions, left inguinal hernia containing fat. -05/08: CT sinuses deviation of nasal septum, minimal mucoperiosteal thickening of the inferior left maxillary sinus. 05/09: Fever curves have improved, patient did have to go on Levophed -overnight which has currently been turned off - currently vancomycin and cefepime which was started on 05/07/2022 -05/07 blood cultures growing Staph epididymis / bottles, repeating about cultures 05/09/2022 are negative x2 -05/07 sputum and urine cultures were negative -WBC count trending down 05/11/2022: Patient continues to be febrile with a T-max 101.1 -worsening creatinine, borderline blood pressures, not requiring vasopressors at this time -remains on vancomycin and cefepime, leukocytosis gradually trending down (2) Haemophilus influenzae septicemia: Code(s): A41.3 - Sepsis due to Hemophilus influenzae Status: Acute Assessment and Plan: See above (3) Hemoptysis: Code(s): R04.2 - Hemoptysis Status: Acute Assessment and Plan: Secondary to to pneumonia, coughing, rupture of a small blood vessel, patient was also on Coumadin which contributed -Coumadin was reversed with vitamin K and Kcentra Most recent INR 1.8 -therapeutic Lovenox on discontinued on 05/11/2022 -05/11/2022 patient anemic hemoglobin of 6.8, (4) Respiratory failure with hypoxia: Code(s): J96.91 - Respiratory failure, unspecified with hypoxia Status: Acute Assessment and Plan: Continue mechanical ventilation, patient was intubated of 04/27/2022 He is currently on 50% FiO2 and 10 of PEEP and has not made any significant progress, wean to maintain O2 sats greater 92% CT scan did not suggest any pulmonary edema but suggest consolidation from his pneumonia. His intake and output balance and other exam also does not suggest volume overload ABG reviewed Chest x-ray reviewed Off Solu-Medrol Continue bronchodilators Minimal ET tube secretions, continue Pulmozyme No hemoptysis at this time Will start weaning sedation, once patient is more awake will weaning trials, be unlikely because he has abdominal distension which may hinder in his weaning process (5) Pneumonia: Code(s): J18.9 - Pneumonia, unspecified organism Status: Acute Assessment and Plan: Secondary to Haemophilus influenzae See above (6) COPD (chronic obstructive pulmonary disease): Code(s): J44.9 - Chronic obstructive pulmonary disease, unspecified Status: Acute Assessment and Plan: See above (7) Biventricular CHF (congestive heart failure): Code(s):
[2022-05-12 12:20] LABS: Glucose Point of Care 88 mg/dl (65-105)
--- NOTE | 2022-05-12 12:58 | PCNFU ---
Nutrition Follow-Up Complete: Inadequate Oral Intake as related to mechanical vent as evidenced by NPO. Meet estimated nutritional needs Goal: goal not met, continue original goal Pt current nutrition is Tube feeding Vital 1.2. Last recorded weight is 125 kg. Bowel Motility: Last BM 05/11 Labs Reviewed: Hgb: 7.5, Hct: 23.2, GFR: 37, BUN: 111, Cr: 1.8 Meds Noted: tylenol, albuterol, pacerone, dulcolax, maxipime, dextrose, fentanyl, glucagon, glutose, novolog, lantus, atrovent, normodyne, lactolose, reglan, versed, lubifresh, levophed, protonix, definity, miralax, tolnaftate, ellipta, vancomycin Skin:no wounds, rt foot, lower leg and abdomen are warm, dry and edematous Additional Notes: Pt poorly tolerating tube feeding and was discontinue due to ileus. Per MD to begin Pt on feeding as ileus is resolving. Recommendation: Start pt on vital 1.2 at 20ml and advance by 10ml per patient tolerance. Goal rate @70ml/hr to provide 1848kcal, 115g protein, 1248ml fluid. Pt is receiving 120ml flushes q4h. Pt will meet 92% kcal, 122% protein. Agree with current diet orders as pt is meeting recommended/estimated needs. Will monitor in ICU rounds and reassessing every Sunday and Sunday.
--- NOTE | 2022-05-12 13:26 | PCNSR ---
On 05/12/22, the student, Raffy Jose, provided care and completed [facility] this [facility]. I have reviewed the student's documentation and agree with the findings.
[2022-05-12 17:34] LABS: Glucose Point of Care 98 mg/dl (65-105)
[2022-05-12] MEDS: FUROSEMIDE INJ 40 MG/4 ML VIAL IV PUSH (20:35)
--- NOTE | 2022-05-12 21:21 | PC.NURSE ---
Patient desatting in the mid 80's on 100% FiO2 and a PEEP of 10. Dr. Chatman notified and received order for 40 mg IVP Lasix once. Patient continued to decompensate with saturations dropping as low as 78% on the same settings. Dr. Chatman notified and received orders to change ventilator settings to PEEP of 14. Sedation resumed as patient was fighting ventilator and tachypneic. Daughter Irasema at bedside and discussed at length the patient's code status and possibility of deteriorating status. Daughter states to keep patient FULL CODE at this time. Will continue to monitor.
[2022-05-12 23:51] LABS: Glucose Point of Care 138 mg/dl (65-105)
[2022-05-13] VITALS (37 sets, daily range): BP systolic 97–135; BP diastolic 69–85; PULSE 87–110; RESP 18–24; TEMP 37.3–37.6; O2SAT 97–100
[2022-05-13] MEDS: IPRATROPIUM BR 0.02% INH SOLN 0.5 MG/2.5 ML VIAL INHALATION ×4 (02:37→21:07)
[2022-05-13] MEDS: ALBUTEROL SULFATE NEB 2.5 MG/3 ML INH 5 MG INHALATION ×4 (02:37→21:07)
[2022-05-13 04:34] LABS: Eosinophils Absolute Auto 0.2 K/mm3 (0-0.3); Eosinophils Percent Auto 1.7 % (0-4.4); Hemoglobin 7.7 g/dL (14.0-18.0); Immature Granulocyte Absolute 0.08 K/mm3 (0.00-0.031); Immature Granulocyte Percent A 0.9 % (0-0.5); Lymphocytes Percent Auto 5.4 % (18.3-44.2); Mean Corpuscular HGB Conc 32.1 g/dl (32-36); Mean Corpuscular Volume 93.4 fl (80-100); Mean Platelet Volume 11.7 fl (7.4-10.4); Monocytes Absolute Auto 0.6 K/mm3 (0.1-0.6); Monocytes Percent Auto 6.2 % (2.6-8.5); Neutrophils Absolute Auto 7.9 K/mm3 (1.3-6.7); Neutrophils Percent Auto 85.8 % (45.5-73.1); Platelet Count Result 179 k/mm3 (150-375); Red Blood Count 2.57 M/mm3 (4.6-6.20); Red Cell Distribution Width 17.2 % (11.5-14.5); White Blood Count 9.2 K/mm3 (4.5-10.0)
[2022-05-13 04:51] LABS: INR 1.3; Prothrombin Time 16.1 Seconds (11.1-14.7)
[2022-05-13 04:52] LABS: Partial Thromboplastin Time 31.5 SECONDS (22.3-36.8)
[2022-05-13 04:57] LABS: Alanine Aminotransferase 44 U/L (6-50); Albumin Level 3.3 g/dL (3.5-5.1); Alkaline Phosphatase 38 U/L (38-126); Anion Gap 16 mmol/L (8-16); Aspartate Amino Transferase 60 U/L (17-59); Bilirubin,Total 1.3 mg/dL (0.2-1.3); Blood Urea Nitrogen 102 mg/dL (9-20); Carbon Dioxide 25 mmol/L (22-30); Chloride 106 mmol/L (98-107); Estimated CRCL calculation 44 ml/min; Estimated Glomerular Filt Rate 42; Glucose 144 mg/dL (65-110); Lipase 45 U/L (23-300); Magnesium 3.1 mg/dL (1.6-2.3); Phosphorus 4.5 mg/dL (2.5-4.5); Potassium 3.2 mmol/L (3.4-5.0); Sodium 147 mmol/L (137-145)
[2022-05-13 04:58] LABS: Lactic Acid Reflex 1.1 mmol/L (0.7-2.0)
[2022-05-13] MEDS: CENTRAL LINE FLUSH 10 ML IV PUSH ×3 (05:07→20:20)
[2022-05-13] MEDS: METOCLOPRAMIDE HCL INJ 10 MG/2 ML VIAL IV PUSH ×3 (05:07→18:25)
[2022-05-13 05:53] LABS: Base Excess ABG 3.2 mEq/l (+/-2.0); Carboxyhemoglobin 0.3 % THb (0-2.0); Device VENTILATOR; Fractional Inspired Oxygen 40 %; HCO3 ABG 26.5 mEq/l (22.0-26.0); Methemoglobin ABG 0.3 %THb (0-1.5); Modified Allen's Test Pass; Oxygen Content ABG 9.7 %vol (16.0-22.0); Oxygen Saturation ABG 95.9 % (95.0-100.0); Oxyhemoglobin 92.9 % THb (90.0-100.0); PCO2 ABG 34.9 mmHg (35.0-45.0); PO2 ABG 73.1 mmHg (80.0-100.0); PO2 FiO2 Ratio Arterial Blood 1.83 %; Reduced Hemoglobin 6.5 %THb (0-5.0); Site Drawn RIGHT RADIAL; pH ABG 7.499 (7.350-7.450)
[2022-05-13 05:55] LABS: Arterial Blood Gas PEEP 14 cmH2O; Arterial Blood Gas Tidal Volume 450 ml; Arterial Blood Gas Vent Mode CMV; Arterial Blood Gas Ventilator rate 18 /MIN; Total Hemoglobin 7.3 g/dL (12.0-18.0)
[2022-05-13] MEDS: AMIODARONE HCL 200 MG TABLET PO (08:43)
[2022-05-13] MEDS: POTASSIUM CHLORIDE 20 MEQ PACKET (FOR LIQUID) 40 MEQ FEED TUBE (08:43)
[2022-05-13] MEDS: MINERAL OIL/WHITE PETROLATUM OINTMENT 1 APPLIC EACH EYE ×2 (08:44→20:20)
[2022-05-13] MEDS: TOLNAFTATE 1% POWDER 45 GM BTL 1 APPLIC TOPICAL ×2 (08:44→20:20)
[2022-05-13] MEDS: PANTOPRAZOLE SODIUM IV 40 MG VIAL IV PUSH ×2 (08:44→20:20)
[2022-05-13] MEDS: LACTULOSE 20 GM/30 ML UDC PO (08:44)
[2022-05-13] MEDS: polyethylene glycoL 3350 17 GM POWD.PACK FEED TUBE (08:44)
--- NOTE | 2022-05-13 11:07 | WPDINTPN ---
Progress Note: A&P Assessment and Plan (1) Septic shock: Code(s): A41.9 - Sepsis, unspecified organism; R65.21 - Severe sepsis with septic shock Status: Acute Assessment and Plan: Septic shock secondary to Haemophilus influenzae bacteremia and pneumonia Off Levophed, since 05/03/2022 morning Conservative IV fluid strategy in light of severe respiratory failure Sedation could also cause some hypotension Currently not on any IV fluids He is currently on IV Rocephin, Levaquin -discontinued vancomycin on 05/02 -05/03 repeat blood culture are negative till now 05/07 persistent fevers Repeat blood sputum cultures sent Replace Nichole replaced. UA unremarkable. Urine culture sent Normal lipase He is already on anticoagulation No significant change in oxygen requirement chest x-ray or respiratory secretions No diarrhea at this time 05/08 CT of chest abdomen pelvis: Adynamic ileus a sigmoid colon stricture, small pleural effusions, left inguinal hernia containing fat. -05/08: CT sinuses deviation of nasal septum, minimal mucoperiosteal thickening of the inferior left maxillary sinus. 05/09: Fever curves have improved, patient did have to go on Levophed -overnight which has currently been turned off - currently vancomycin and cefepime which was started on 05/07/2022 -05/07 blood cultures growing Staph epididymis 08/10 bottles, repeating about cultures 05/09/2022 are negative x2 -05/07 sputum and urine cultures were negative -WBC count trending down 05/11/2022: Patient continues to be febrile with a T-max 101.1 -worsening creatinine, borderline blood pressures, not requiring vasopressors at this time -remains on vancomycin and cefepime, leukocytosis gradually trending down 05/13: Fever curve has improved, WBC count is normal (2) Haemophilus influenzae septicemia: Code(s): A41.3 - Sepsis due to Hemophilus influenzae Status: Acute Assessment and Plan: See above (3) Hemoptysis: Code(s): R04.2 - Hemoptysis Status: Acute Assessment and Plan: Secondary to to pneumonia, coughing, rupture of a small blood vessel, patient was also on Coumadin which contributed -Coumadin was reversed with vitamin K and Kcentra Most recent INR 1.8 -therapeutic Lovenox on discontinued on 05/11/2022 -05/11/2022 patient anemic hemoglobin of 6.8, (4) Respiratory failure with hypoxia: Code(s): J96.91 - Respiratory failure, unspecified with hypoxia Status: Acute Assessment and Plan: Continue mechanical ventilation, patient was intubated of 04/27/2022 He is currently on 50% FiO2 and 10 of PEEP and has not made any significant progress, wean to maintain O2 sats greater 92% CT scan did not suggest any pulmonary edema but suggest consolidation from his pneumonia. His intake and output balance and other exam also does not suggest volume overload ABG reviewed Chest x-ray reviewed Off Solu-Medrol Continue bronchodilators Minimal ET tube secretions, continue Pulmozyme No hemoptysis at this time Will start weaning sedation, once patient is more awake will weaning trials, be unlikely because he has abdominal distension which may hinder in his weaning process 05/13/2022: Overnight patient desaturated requiring 100% FiO2 and peep was increased to 14. Chest x-ray showed pulmonary edema, patient was given Lasix 40 mg IV x1 with good diuresis. FiO2 down to 40% and PEEP down to 10 -chest x-ray this morning: Persistent prominent left lower lobe atelectasis and/or consolidation Diminished congestive changes and right lung infiltrates since 05/12/2022? (5) Pneumonia: Code(s): J18.9 - Pneumonia, unspecified organism Status: Acute Assessment and Plan: Secondary to Haemophilus influenzae See above (6) COPD (chronic obstructive pulmonary disease): Code(s): J44.9 - Chronic obstructive pulmonary disease, unspecified Status: Acute Assessment and Plan: See above (7) Bivent
[2022-05-13 12:02] LABS: Glucose Point of Care 160 mg/dl (65-105)
[2022-05-13 17:59] LABS: Vancomycin Trough 30.2 ug/mL (10.0-20.0)
[2022-05-13 18:14] LABS: Glucose Point of Care 152 mg/dl (65-105)
[2022-05-14] VITALS (32 sets, daily range): BP systolic 98–133; BP diastolic 60–91; PULSE 84–104; RESP 18–104; TEMP 37.3–37.9; O2SAT 96–100
[2022-05-14] MEDS: METOCLOPRAMIDE HCL INJ 10 MG/2 ML VIAL IV PUSH ×5 (00:57→23:36)
[2022-05-14 01:06] LABS: Glucose Point of Care 162 mg/dl (65-105)
--- NOTE | 2022-05-14 01:10 | PC.NURSE ---
Daylight Savings Time For Daylight Savings Time Ending in the Fall - Clocks are moved back. For Daylight Savings Time Beginning in the Spring - Clocks are moved ahead. For [facility], the time of change occurs at 0200 hrs. Time is taken from the bistro server. This entry on the patient's chart recognizes the change in time reflected during documentation. Example: 2 entries for vital signs may be charted for 0200 hrs.
[2022-05-14] MEDS: ALBUTEROL SULFATE NEB 2.5 MG/3 ML INH 5 MG INHALATION ×4 (02:28→20:08)
[2022-05-14] MEDS: IPRATROPIUM BR 0.02% INH SOLN 0.5 MG/2.5 ML VIAL INHALATION ×4 (02:28→20:08)
[2022-05-14 04:42] LABS: Basophils Percent Auto 0.1 % (0.2-1.2); Eosinophils Absolute Auto 0.1 K/mm3 (0-0.3); Eosinophils Percent Auto 1.7 % (0-4.4); Hematocrit 23.6 % (42.0-52.0); Hemoglobin 7.4 g/dL (14.0-18.0); Immature Granulocyte Absolute 0.05 K/mm3 (0.00-0.031); Immature Granulocyte Percent A 0.7 % (0-0.5); Lymphocytes Absolute Auto 0.46 K/mm3 (0.9-3.2); Lymphocytes Percent Auto 6.6 % (18.3-44.2); Mean Corpuscular HGB Conc 31.4 g/dl (32-36); Mean Corpuscular Hemoglobin 29.6 pg (26-34); Mean Corpuscular Volume 94.4 fl (80-100); Mean Platelet Volume 11.3 fl (7.4-10.4); Monocytes Absolute Auto 0.4 K/mm3 (0.1-0.6); Monocytes Percent Auto 5.7 % (2.6-8.5); Neutrophils Percent Auto 85.2 % (45.5-73.1); Platelet Count Result 194 k/mm3 (150-375); Red Cell Distribution Width 17.4 % (11.5-14.5)
[2022-05-14 04:58] LABS: Alanine Aminotransferase 52 U/L (6-50); Albumin Level 3.1 g/dL (3.5-5.1); Alkaline Phosphatase 38 U/L (38-126); Anion Gap 10 mmol/L (8-16); Aspartate Amino Transferase 57 U/L (17-59); Blood Urea Nitrogen 88 mg/dL (9-20); Calcium 8.2 mg/dL (8.4-10.2); Carbon Dioxide 28 mmol/L (22-30); Chloride 113 mmol/L (98-107); Estimated CRCL calculation 56 ml/min; Estimated Glomerular Filt Rate 59; Glucose 149 mg/dL (65-110); Magnesium 2.8 mg/dL (1.6-2.3); Phosphorus 3.5 mg/dL (2.5-4.5); Potassium 3.6 mmol/L (3.4-5.0); Sodium 151 mmol/L (137-145)
[2022-05-14] MEDS: CENTRAL LINE FLUSH 10 ML IV PUSH ×3 (05:07→21:43)
[2022-05-14 05:33] LABS: Alveolar/Arterial O2 Gradient 146.2 mmHg; Base Excess ABG 5.3 mEq/l (+/-2.0); Carboxyhemoglobin 0.3 % THb (0-2.0); Fractional Inspired Oxygen 40 %; HCO3 ABG 29.1 mEq/l (22.0-26.0); Methemoglobin ABG 0.2 %THb (0-1.5); Oxygen Content ABG 21.3 %vol (16.0-22.0); Oxygen Saturation ABG 97.6 % (95.0-100.0); Oxyhemoglobin 96.3 % THb (90.0-100.0); PCO2 ABG 39.5 mmHg (35.0-45.0); PO2 ABG 93.6 mmHg (80.0-100.0); PO2 FiO2 Ratio Arterial Blood 2.34 %; Reduced Hemoglobin 3.2 %THb (0-5.0); Total Hemoglobin 15.7 g/dL (12.0-18.0); pH ABG 7.485 (7.350-7.450)
[2022-05-14 05:38] LABS: Device VENTILATOR; Modified Allen's Test Pass; Site Drawn RIGHT RADIAL
[2022-05-14 05:39] LABS: Arterial Blood Gas PEEP 10 cmH2O; Arterial Blood Gas Tidal Volume 450 ml; Arterial Blood Gas Vent Mode CMV; Arterial Blood Gas Ventilator rate 18 /MIN
[2022-05-14 06:53] LABS: IFOB Positive Control Positive; Immunochemical Fecal Occult Bl Positive (N)
[2022-05-14] MEDS: FUROSEMIDE INJ 40 MG/4 ML VIAL 20 MG IV PUSH (07:56)
[2022-05-14] MEDS: TOLNAFTATE 1% POWDER 45 GM BTL 1 APPLIC TOPICAL ×2 (07:57→20:37)
[2022-05-14] MEDS: AMIODARONE HCL 200 MG TABLET PO (07:57)
[2022-05-14] MEDS: MINERAL OIL/WHITE PETROLATUM OINTMENT 1 APPLIC EACH EYE ×2 (07:57→20:37)
[2022-05-14] MEDS: LACTULOSE 20 GM/30 ML UDC PO (07:57)
[2022-05-14] MEDS: PANTOPRAZOLE SODIUM IV 40 MG VIAL IV PUSH ×2 (07:57→20:36)
[2022-05-14] MEDS: polyethylene glycoL 3350 17 GM POWD.PACK FEED TUBE (07:57)
--- NOTE | 2022-05-14 08:39 | WPDINTPN ---
Progress Note: A&P Assessment and Plan (1) Septic shock: Code(s): A41.9 - Sepsis, unspecified organism; R65.21 - Severe sepsis with septic shock Status: Acute Assessment and Plan: Septic shock secondary to Haemophilus influenzae bacteremia and pneumonia Off Levophed, since 05/03/2022 morning Conservative IV fluid strategy in light of severe respiratory failure -05/03 repeat blood culture are negative till now 05/08: CT of chest abdomen pelvis: Adynamic ileus a sigmoid colon stricture, small pleural effusions, left inguinal hernia containing fat. -05/08: CT sinuses deviation of nasal septum, minimal mucoperiosteal thickening of the inferior left maxillary sinus. 05/09: Fever curves have improved, patient did have to go on Levophed -overnight which has currently been turned off - currently vancomycin and cefepime which was started on 05/07/2022 -05/07 blood cultures growing Staph epididymis 2/2 bottles, repeat blood cultures 05/09/2022 are negative x2 -05/07 sputum and urine cultures were negative -WBC count trending down 05/11/2022: Patient continues to be febrile with a T-max 101.1 -worsening creatinine, borderline blood pressures, not requiring vasopressors at this time -remains on vancomycin and cefepime, leukocytosis gradually trending down 05/13: Fever curve has improving, WBC count is normal (2) Haemophilus influenzae septicemia: Code(s): A41.3 - Sepsis due to Hemophilus influenzae Status: Acute Assessment and Plan: See above (3) Hemoptysis: Code(s): R04.2 - Hemoptysis Status: Acute Assessment and Plan: Secondary to to pneumonia, coughing, rupture of a small blood vessel, patient was also on Coumadin which contributed -Coumadin was reversed with vitamin K and Kcentra Most recent INR 1.8 -therapeutic Lovenox on discontinued on 05/11/2022 -05/11/2022 patient anemic hemoglobin of 6.8, (4) Respiratory failure with hypoxia: Code(s): J96.91 - Respiratory failure, unspecified with hypoxia Status: Acute Assessment and Plan: Continue mechanical ventilation, patient was intubated of 04/27/2022 He is currently on 50% FiO2 and 10 of PEEP and has not made any significant progress, wean to maintain O2 sats greater 92% CT scan did not suggest any pulmonary edema but suggest consolidation from his pneumonia. On CMV mode of ventilation, peep 10 40% FiO2 05/14 Chest is morning shows cardiomegaly vascular congestion, bilateral infiltrates increased since 05/13/2022 With gently diuresed today Continue bronchodilators No hemoptysis at this time Sedated with Versed infusion daily sedation vacation, maintain RASS of 0--2 I discussed with daughter, Irasema regarding tracheostomy and PEG tube placement, she will be getting back to me sometime today, 05/14 (5) Pneumonia: Code(s): J18.9 - Pneumonia, unspecified organism Status: Acute Assessment and Plan: Secondary to Haemophilus influenzae See above (6) COPD (chronic obstructive pulmonary disease): Code(s): J44.9 - Chronic obstructive pulmonary disease, unspecified Status: Acute Assessment and Plan: See above (7) Biventricular CHF (congestive heart failure): Code(s): I50.82 - Biventricular heart failure Status: Acute Assessment and Plan: He has low LVEF 40%-45% and severely enlarged RV with RV diastolic dysfunction, severe pulmonary hypertension with regurgitant tricuspid valve flow. This was noted on his echo.??His pulmonary hypertension is chronic, and he may have an acute component as well. He uses O2 at night, may need O2 in the day. He has COPD. His creat was too high to get a CTA to evaluate for PE. He was fully anticoagulated on admission.? 05/01 CTA chest: Bilateral dependent airspace consolidation which may represent atelectasis and/or pneumonia. No evidence of pulmonary embolism Repeat echocardiogram 04/27 Summary ? 1. Technically chal
--- NOTE | 2022-05-14 11:31 | PM.IMPN ---
Progress Note: A&P Assessment and Plan (1) Septic shock: Code(s): A41.9 - Sepsis, unspecified organism; R65.21 - Severe sepsis with septic shock Status: Acute Assessment and Plan: Septic shock secondary to Haemophilus influenzae bacteremia and pneumonia continue vanc and cefepime. (2) Haemophilus influenzae septicemia: Code(s): A41.3 - Sepsis due to Hemophilus influenzae Status: Acute Assessment and Plan: See above (3) Hemoptysis: Code(s): R04.2 - Hemoptysis Status: Acute Assessment and Plan: Secondary to to pneumonia (4) Respiratory failure with hypoxia: Code(s): J96.91 - Respiratory failure, unspecified with hypoxia Status: Acute Assessment and Plan: Intubated, managed per ICU (5) Pneumonia: Code(s): J18.9 - Pneumonia, unspecified organism Status: Acute Assessment and Plan: Secondary to Haemophilus influenzae (6) COPD (chronic obstructive pulmonary disease): Code(s): J44.9 - Chronic obstructive pulmonary disease, unspecified Status: Acute Assessment and Plan: See above (7) Biventricular CHF (congestive heart failure): Code(s): I50.82 - Biventricular heart failure Status: Acute Assessment and Plan: He has low LVEF 40%-45% and severely enlarged RV with RV diastolic dysfunction, severe pulmonary hypertension with regurgitant tricuspid valve flow. (8) Acute kidney injury: Code(s): N17.9 - Acute kidney failure, unspecified Status: Acute Assessment and Plan: monitor electrolytes. Monitor kidney function (9) Atrial fibrillation: Code(s): I48.91 - Unspecified atrial fibrillation Status: Acute Assessment and Plan: Controlled ventricular rate On PO amiodarone Therapeutic Lovenox on hold due to anemia (10) Hyperglycemia: Code(s): R73.9 - Hyperglycemia, unspecified Status: Acute Assessment and Plan: Continue Lantus, Accu-Cheks and sliding scale insulin Off steroids blood sugars seem to have improved (11) Constipation: Code(s): K59.00 - Constipation, unspecified Status: Acute Assessment and Plan: BM overnight (12) Abdominal distension: Code(s): R14.0 - Abdominal distension (gaseous) Status: Acute Assessment and Plan: Monitor (13) Anemia: Code(s): D64.9 - Anemia, unspecified Status: Acute Assessment and Plan: Patient has been dropping his hemoglobin, is on full-dose Lovenox of atrial fibrillation -continue to monitor hemoglobin, may need transfusion Subjective Date/time seen: 05/14/22 11:31 Intubated Exam Narrative: GEN: ?Intubated and sedated, in no distress HEENT: Pupils equal and reactive to light, sclera is clear, ETT in place NECK:? Trachea is midline, no lymphadenopathy CHEST:? Equal air entry, symmetric excursion, decreased breath sounds at bases, no wheezing? CV:? Irregularly irregular, rate controlled ABD : Abdomen is soft, distended, nontender, hypoactive bowel sounds, tympanic on percussion Extremities : no clubbing, cyanosis, no lower extremity edema PSYCH:? sedated Neuro: Sedated, PERRL, patient does not open his eyes but does follows simple commands in all extremities Objective Data Vital Signs Vital Signs: Vital Signs - 24 hr 05/13/22 12:37 05/13/22 12:44 05/13/22 14:00 Temperature Pulse Rate 101 H 97 95 Respiratory Rate 22 H 24 H Blood Pressure Pulse Oximetry Oxygen Delivery Fraction of Inspired Oxygen 05/13/22 14:00 05/13/22 14:45 05/13/22 14:58 Temperature 99.5 F Pulse Rate 99 97 99 Respiratory Rate 23 H 22 H Blood Pressure 97/75 L Pulse Oximetry 97 99 Oxygen Delivery Mechanical Ventilation Fraction of Inspired Oxygen 40 05/13/22 16:00 05/13/22 16:00 05/13/22 16:00 Temperature Pulse Rate 106 H Respiratory Rate Blood Pressure Pulse Oximetry
[2022-05-14 11:37] LABS: Glucose Point of Care 151 mg/dl (65-105)
[2022-05-14] MEDS: MIDAZOLAM 100MG/NS 100ML(*CRX) 100 MG/100 ML BAG IV CONT (12:14)
[2022-05-14 18:04] LABS: Vancomycin Random 18.1 ug/mL (10-20)
[2022-05-14 18:04] LABS: Glucose Point of Care 129 mg/dl (65-105)
[2022-05-14 23:46] LABS: Glucose Point of Care 151 mg/dl (65-105)
[2022-05-15] VITALS (28 sets, daily range): BP systolic 114–131; BP diastolic 58–76; PULSE 81–102; RESP 16–22; TEMP 37.2–37.7; O2SAT 97–100
[2022-05-15 00:24] LABS: Glucose Point of Care 125 mg/dl (65-105)
[2022-05-15] MEDS: IPRATROPIUM BR 0.02% INH SOLN 0.5 MG/2.5 ML VIAL INHALATION ×4 (02:21→20:32)
[2022-05-15] MEDS: ALBUTEROL SULFATE NEB 2.5 MG/3 ML INH 5 MG INHALATION ×4 (02:21→20:32)
[2022-05-15 04:06] LABS: Basophils Percent Auto 0.1 % (0.2-1.2); Eosinophils Absolute Auto 0.2 K/mm3 (0-0.3); Eosinophils Percent Auto 2.3 % (0-4.4); Hematocrit 24.8 % (42.0-52.0); Hemoglobin 7.7 g/dL (14.0-18.0); Immature Granulocyte Absolute 0.04 K/mm3 (0.00-0.031); Immature Granulocyte Percent A 0.5 % (0-0.5); Lymphocytes Absolute Auto 0.74 K/mm3 (0.9-3.2); Lymphocytes Percent Auto 9.9 % (18.3-44.2); Mean Corpuscular Hemoglobin 29.5 pg (26-34); Mean Platelet Volume 10.9 fl (7.4-10.4); Monocytes Absolute Auto 0.5 K/mm3 (0.1-0.6); Monocytes Percent Auto 6.6 % (2.6-8.5); Neutrophils Percent Auto 80.6 % (45.5-73.1); Platelet Count Result 201 k/mm3 (150-375); Red Blood Count 2.61 M/mm3 (4.6-6.20); Red Cell Distribution Width 17.4 % (11.5-14.5); White Blood Count 7.5 K/mm3 (4.5-10.0)
[2022-05-15 04:22] LABS: Alanine Aminotransferase 56 U/L (6-50); Alkaline Phosphatase 40 U/L (38-126); Anion Gap 10 mmol/L (8-16); Aspartate Amino Transferase 55 U/L (17-59); Bilirubin,Total 0.8 mg/dL (0.2-1.3); Blood Urea Nitrogen 74 mg/dL (9-20); Calcium 8.2 mg/dL (8.4-10.2); Carbon Dioxide 30 mmol/L (22-30); Chloride 112 mmol/L (98-107); Estimated CRCL calculation 61 ml/min; Estimated Glomerular Filt Rate > 60; Glucose 128 mg/dL (65-110); Magnesium 2.5 mg/dL (1.6-2.3); Phosphorus 3.3 mg/dL (2.5-4.5); Potassium 3.3 mmol/L (3.4-5.0); Sodium 152 mmol/L (137-145)
[2022-05-15 05:13] LABS: Alveolar/Arterial O2 Gradient 153.4 mmHg; Carboxyhemoglobin 0.3 % THb (0-2.0); Fractional Inspired Oxygen 40 %; Methemoglobin ABG 0.2 %THb (0-1.5); Oxygen Content ABG 13.2 %vol (16.0-22.0); Oxyhemoglobin 94.8 % THb (90.0-100.0); PCO2 ABG 40.8 mmHg (35.0-45.0); PO2 ABG 84.9 mmHg (80.0-100.0); PO2 FiO2 Ratio Arterial Blood 2.12 %; Reduced Hemoglobin 4.7 %THb (0-5.0); Total Hemoglobin 9.8 g/dL (12.0-18.0); pH ABG 7.484 (7.350-7.450)
[2022-05-15 05:18] LABS: Modified Allen's Test Pass; Site Drawn RIGHT RADIAL
[2022-05-15 05:19] LABS: Arterial Blood Gas PEEP 10 cmH2O; Arterial Blood Gas Tidal Volume 450 ml; Arterial Blood Gas Vent Mode CMV; Arterial Blood Gas Ventilator rate 18 /MIN; Device VENTILATOR
[2022-05-15] MEDS: CENTRAL LINE FLUSH 10 ML IV PUSH ×3 (05:40→22:30)
[2022-05-15] MEDS: METOCLOPRAMIDE HCL INJ 10 MG/2 ML VIAL IV PUSH ×3 (05:40→16:41)
[2022-05-15 06:10] LABS: Haptoglobin 272 mg/dL (43-212)
[2022-05-15] MEDS: AMIODARONE HCL 200 MG TABLET PO (08:00)
[2022-05-15] MEDS: TOLNAFTATE 1% POWDER 45 GM BTL 1 APPLIC TOPICAL ×2 (08:02→20:23)
[2022-05-15] MEDS: ENOXAPARIN 120 MG/0.8 ML SYRINGE 115 MG SUB-Q ×2 (08:02→20:23)
[2022-05-15] MEDS: polyethylene glycoL 3350 17 GM POWD.PACK FEED TUBE (08:02)
[2022-05-15] MEDS: PANTOPRAZOLE SODIUM IV 40 MG VIAL IV PUSH ×2 (08:02→20:22)
[2022-05-15] MEDS: POTASSIUM CHLORIDE 20 MEQ PACKET (FOR LIQUID) 40 MEQ FEED TUBE (08:02)
--- NOTE | 2022-05-15 08:39 | WPDINTPN ---
Progress Note: A&P Assessment and Plan (1) Septic shock: Code(s): A41.9 - Sepsis, unspecified organism; R65.21 - Severe sepsis with septic shock Status: Acute Assessment and Plan: Septic shock secondary to Haemophilus influenzae bacteremia and pneumonia Off Levophed, since 05/03/2022 morning Conservative IV fluid strategy in light of severe respiratory failure -05/03 repeat blood culture are negative till now 05/08: CT of chest abdomen pelvis: Adynamic ileus a sigmoid colon stricture, small pleural effusions, left inguinal hernia containing fat. -05/08: CT sinuses deviation of nasal septum, minimal mucoperiosteal thickening of the inferior left maxillary sinus. 05/09: Fever curves have improved, patient did have to go on Levophed -overnight which has currently been turned off - currently vancomycin and cefepime which was started on 05/07/2022 -05/07 blood cultures growing Staph epididymis 2/ bottles, repeat blood cultures 05/09/2022 are negative x2 -05/07 sputum and urine cultures were negative -WBC count trending down 05/11/2022: Patient continues to be febrile with a T-max 101.1 -worsening creatinine, borderline blood pressures, not requiring vasopressors at this time -remains on vancomycin and cefepime, leukocytosis gradually trending down 05/15: Fever curve has improving, WBC count is normal - (2) Respiratory failure with hypoxia: Code(s): J96.91 - Respiratory failure, unspecified with hypoxia Status: Acute Assessment and Plan: Continue mechanical ventilation, patient was intubated of 04/27/2022 He is currently on 50% FiO2 and 10 of PEEP and has not made any significant progress, wean to maintain O2 sats greater 92% CT scan did not suggest any pulmonary edema but suggest consolidation from his pneumonia. On CMV mode of ventilation, peep 10 40% FiO2 05/15 chest x-ray this morning: Decreasing small bilateral pleural effusions with persistent associated atelectasis and/or pneumonia in the lower lung zones, left greater than right.. Cardiomegaly. Will diurese again today Continue bronchodilators No hemoptysis at this time Sedated with Versed infusion daily sedation vacation, maintain RASS of 0--2 I discussed with daughter, Irasema regarding tracheostomy and PEG tube placement, she will be getting back to me (3) Atrial fibrillation: Code(s): I48.91 - Unspecified atrial fibrillation Status: Acute Assessment and Plan: Controlled ventricular rate On PO amiodarone 05/15 Will restart therapeutic Lovenox today as his hemoglobin has remained stable since EGD done on 05/11/2022 (4) Anemia: Code(s): D64.9 - Anemia, unspecified Status: Acute Assessment and Plan: Patient has been dropping his hemoglobin, is on full-dose Lovenox of atrial fibrillation -continue to monitor hemoglobin, may need transfusion -LDH is within normal limits, haptoglobin slightly elevated - vitamin B12 and folic acid within normal limits -05/14: stool for occult blood is positive -iron panel reflective iron deficiency anemia -continue Protonix IV q.12 hours Appreciate GI evaluation -05/11/2022 patient had an EGD: Acute gastric ulcers, gastritis and reflux esophagitis. One resolution clip to control bleeding ulcer. (5) Haemophilus influenzae septicemia: Code(s): A41.3 - Sepsis due to Hemophilus influenzae Status: Acute Assessment and Plan: See above (6) Hemoptysis: Code(s): R04.2 - Hemoptysis Status: Acute Assessment and Plan: Secondary to to pneumonia, coughing, rupture of a small blood vessel, patient was also on Coumadin which contributed -Coumadin was reversed with vitamin K and Kcentra Most recent INR 1.3 (7) Pneumonia: Code(s): J18.9 - Pneumonia, unspecified organism Status: Acute Assessment and Plan: Secondary to Haemophilus influenzae See above (8) COPD (chronic obstructive pulmonary disease):
[2022-05-15] MEDS: FUROSEMIDE INJ 40 MG/4 ML VIAL 20 MG IV PUSH (09:00)
--- NOTE | 2022-05-15 10:51 | PCFNICU ---
ICU Rounding Note: Pt current nutrition is Vital 1.2 @ 70 ml/h. Nutrition recommendation: Add Karthikeyan flushes BID for deep tissue injury to BL buttocks. Add Karthikeyan to 120 ml water BID Last recorded weight is 117.2 kg. Bowel Motility: + BM 05/14, 05/15. Labs Reviewed: Hbg 7.7, Hct 24.8, BUN 74, Cre 1.1. Meds Noted: Versed, Vanco, Lactulose, Reglan Skin: Deep tissue injury to BL buttocks Additional Notes: Vent day 17. Conversations with family ongoing per team for possible PEG, trach. No pressors. Minute volume 7.1 L/min. Adding Karthikeyan flushes BID. Following daily in ICU rounds. Will monitor in ICU rounds and reassessing every Sunday and Sunday. .
[2022-05-15 12:01] LABS: Glucose Point of Care 145 mg/dl (65-105)
[2022-05-15 16:49] LABS: Glucose Point of Care 133 mg/dl (65-105)
[2022-05-15] MEDS: SENNA/DOCUSATE SODIUM TABLET 1 TAB PO (20:22)
[2022-05-15] MEDS: MINERAL OIL/WHITE PETROLATUM OINTMENT 1 APPLIC EACH EYE (20:23)
[2022-05-16] VITALS (23 sets, daily range): BP systolic 103–141; BP diastolic 64–84; PULSE 51–98; RESP 16–28; TEMP 36.6–37.6; O2SAT 37–100
[2022-05-16] MEDS: METOCLOPRAMIDE HCL INJ 10 MG/2 ML VIAL IV PUSH ×3 (00:52→12:26)
[2022-05-16 00:55] LABS: Glucose Point of Care 120 mg/dl (65-105)
[2022-05-16] MEDS: ALBUTEROL SULFATE NEB 2.5 MG/3 ML INH 5 MG INHALATION ×3 (02:25→13:55)
[2022-05-16] MEDS: IPRATROPIUM BR 0.02% INH SOLN 0.5 MG/2.5 ML VIAL INHALATION ×3 (02:26→13:55)
[2022-05-16] MEDS: MIDAZOLAM 100MG/NS 100ML(*CRX) 100 MG/100 ML BAG IV CONT (03:01)
[2022-05-16 04:55] LABS: Basophils Percent Auto 0.1 % (0.2-1.2); Eosinophils Absolute Auto 0.3 K/mm3 (0-0.3); Eosinophils Percent Auto 3.8 % (0-4.4); Hematocrit 24.4 % (42.0-52.0); Hemoglobin 7.4 g/dL (14.0-18.0); Immature Granulocyte Absolute 0.05 K/mm3 (0.00-0.031); Immature Granulocyte Percent A 0.7 % (0-0.5); Immature Platelet Fraction Pct 7.6 % (0.9-11.2); Lymphocytes Absolute Auto 0.53 K/mm3 (0.9-3.2); Lymphocytes Percent Auto 7.4 % (18.3-44.2); Mean Corpuscular HGB Conc 30.3 g/dl (32-36); Mean Corpuscular Hemoglobin 29.8 pg (26-34); Mean Corpuscular Volume 98.4 fl (80-100); Mean Platelet Volume 11.5 fl (7.4-10.4); Monocytes Absolute Auto 0.3 K/mm3 (0.1-0.6); Monocytes Percent Auto 4.3 % (2.6-8.5); Neutrophils Percent Auto 83.7 % (45.5-73.1); Red Blood Count 2.48 M/mm3 (4.6-6.20); Red Cell Distribution Width 17.8 % (11.5-14.5); White Blood Count 7.2 K/mm3 (4.5-10.0)
[2022-05-16 05:17] LABS: Platelet Count Result 131 k/mm3 (150-375)
[2022-05-16 05:29] LABS: Alanine Aminotransferase 53 U/L (6-50); Albumin Level 2.8 g/dL (3.5-5.1); Alkaline Phosphatase 47 U/L (38-126); Anion Gap 9 mmol/L (8-16); Aspartate Amino Transferase 38 U/L (17-59); Bilirubin,Total 0.7 mg/dL (0.2-1.3); Blood Urea Nitrogen 66 mg/dL (9-20); Calcium 8.4 mg/dL (8.4-10.2); Carbon Dioxide 30 mmol/L (22-30); Chloride 112 mmol/L (98-107); Estimated CRCL calculation 60 ml/min; Estimated Glomerular Filt Rate > 60; Glucose 128 mg/dL (65-110); Magnesium 2.2 mg/dL (1.6-2.3); Potassium 3.3 mmol/L (3.4-5.0); Sodium 151 mmol/L (137-145)
[2022-05-16 05:36] LABS: Alveolar/Arterial O2 Gradient 142.3 mmHg; Base Excess ABG 3.9 mEq/l (+/-2.0); Carboxyhemoglobin 0.4 % THb (0-2.0); Fractional Inspired Oxygen 40 %; HCO3 ABG 27.6 mEq/l (22.0-26.0); Methemoglobin ABG 0.1 %THb (0-1.5); Oxygen Content ABG 11.4 %vol (16.0-22.0); Oxygen Saturation ABG 97.9 % (95.0-100.0); Oxyhemoglobin 96.3 % THb (90.0-100.0); PCO2 ABG 37.7 mmHg (35.0-45.0); PO2 ABG 99.5 mmHg (80.0-100.0); PO2 FiO2 Ratio Arterial Blood 2.49 %; Reduced Hemoglobin 3.2 %THb (0-5.0); Total Hemoglobin 8.3 g/dL (12.0-18.0); pH ABG 7.483 (7.350-7.450)
[2022-05-16] MEDS: CENTRAL LINE FLUSH 10 ML IV PUSH ×3 (05:52→20:52)
[2022-05-16 06:13] LABS: Arterial Blood Gas PEEP 10 cmH2O; Arterial Blood Gas Tidal Volume 450 ml; Arterial Blood Gas Vent Mode CMV; Arterial Blood Gas Ventilator rate 16 /MIN; Device VENTILATOR; Modified Allen's Test Pass; Site Drawn RIGHT RADIAL
[2022-05-16] MEDS: AMIODARONE HCL 200 MG TABLET PO (08:26)
[2022-05-16] MEDS: POTASSIUM CHLORIDE 20 MEQ PACKET (FOR LIQUID) 40 MEQ FEED TUBE (08:27)
[2022-05-16] MEDS: PANTOPRAZOLE SODIUM IV 40 MG VIAL IV PUSH (08:27)
[2022-05-16] MEDS: ENOXAPARIN 120 MG/0.8 ML SYRINGE 115 MG SUB-Q (08:28)
[2022-05-16] MEDS: TOLNAFTATE 1% POWDER 45 GM BTL 1 APPLIC TOPICAL (08:28)
[2022-05-16] MEDS: POTASSIUM CHLORIDE INJ 40 MEQ in DEXTROSE 5% IN WATER 500 ML 130 MEQ IVPB (08:28)
--- NOTE | 2022-05-16 11:03 | PM.IMPN ---
Progress Note: A&P Assessment and Plan (1) Septic shock: Code(s): A41.9 - Sepsis, unspecified organism; R65.21 - Severe sepsis with septic shock Status: Acute Assessment and Plan: Septic shock secondary to Haemophilus influenzae bacteremia and pneumonia currently off pressors. Continue Vancomycin and cefepime. Cultures reviewed (2) Respiratory failure with hypoxia: Code(s): J96.91 - Respiratory failure, unspecified with hypoxia Status: Acute Assessment and Plan: continue intubation with vent support. Manage per ICU. (3) Atrial fibrillation: Code(s): I48.91 - Unspecified atrial fibrillation Status: Acute Assessment and Plan: Controlled ventricular rate On PO amiodarone on therapeutic Lovenox (4) Anemia: Code(s): D64.9 - Anemia, unspecified Status: Acute Assessment and Plan: EGD: Acute gastric ulcers, gastritis and reflux esophagitis. One resolution clip to control bleeding ulcer. monitor hemoglobin and transfuse as needed (5) Haemophilus influenzae septicemia: Code(s): A41.3 - Sepsis due to Hemophilus influenzae Status: Acute Assessment and Plan: See above (6) Hemoptysis: Code(s): R04.2 - Hemoptysis Status: Acute Assessment and Plan: monitor (7) Pneumonia: Code(s): J18.9 - Pneumonia, unspecified organism Status: Acute Assessment and Plan: Secondary to Haemophilus influenzae See above (8) COPD (chronic obstructive pulmonary disease): Code(s): J44.9 - Chronic obstructive pulmonary disease, unspecified Status: Acute Assessment and Plan: See above (9) Biventricular CHF (congestive heart failure): Code(s): I50.82 - Biventricular heart failure Status: Acute Assessment and Plan: He has low LVEF 40%-45% and severely enlarged RV with RV diastolic dysfunction, severe pulmonary hypertension with regurgitant tricuspid valve flow. (10) Acute kidney injury: Code(s): N17.9 - Acute kidney failure, unspecified Status: Acute Assessment and Plan: kidney function has improved. Monitor electrolytes Hypernatremia: will increase free water flushes, also gently diurese patient (11) Hyperglycemia: Code(s): R73.9 - Hyperglycemia, unspecified Status: Acute Assessment and Plan: Continue Lantus, Accu-Cheks and sliding scale insulin Off steroids blood sugars seem to have improved (12) Constipation: Code(s): K59.00 - Constipation, unspecified Status: Acute Assessment and Plan: monitor (13) Abdominal distension: Code(s): R14.0 - Abdominal distension (gaseous) Status: Acute Assessment and Plan: Patient abdominal distention resolved -patient tolerating tube feeds, -05/14 and 05/15: Good bowel movement Subjective Date/time seen: 05/16/22 11:03 intubated Exam Narrative: GEN: ?Intubated and sedated, in no distress HEENT: Pupils equal and reactive to light, sclera is clear, ETT in place NECK:? Trachea is midline, no lymphadenopathy CHEST:? Coarse breath sounds bilaterally, decreased air entry at bases, no wheezing? CV:? Irregularly irregular, rate controlled ABD : Abdomen is soft, distended, nontender, hypoactive bowel sounds, tympanic on percussion Extremities : no clubbing, cyanosis, no lower extremity edema PSYCH:? sedated Neuro: Sedated, PERRL, patient does not open his eyes but does follows simple commands in lower extremities this morning Objective Data Vital Signs Vital Signs: Vital Signs - 24 hr 05/15/22 11:45 05/15/22 12:00 05/15/22 12:00 Temperature Pulse Rate 94 98 Respiratory Rate 16 Blood Pressure Pulse Oximetry Oxygen Delivery Fraction of Inspired Oxygen 40 05/15/22 12:00 05/15/22 12:00 05/15/22 14:00 Temperature 99.3 F Pulse Rate 91 81 Respiratory Rate 18 Blood Pressure 121/69 Pul
--- NOTE | 2022-05-16 11:10 | PCNFU ---
Nutrition Follow-Up Complete: Inadequate Oral Intake as related to mechanical vent as evidenced by NPO. goal: Meet estimated nutritional needs Patient is meeting goal. We will continue current goal Pt current nutrition is Vital AF 1.2 at 70 ml/hr Last recorded weight is 116.5 kg, up from 113.5 kg on admit. Bowel Motility: +BM reported 05/16 Labs Reviewed:Hgb 7.4,Hct 14.4,Alb 2.8,Na 151, K 3.3, BUN 66, Glu 128 Meds Noted:Versed, Potassium Chloride, Reglan, Atrovent Skin: Deep Tissue Pressure Ulcer-Right Buttock Additional Notes: Patient remains on mechanical vent. Tube feedings of Vital AF 1.2 at 70 ml/hr and tolerating per nursing. Current tube feeding is providing 1848 kcals/116 gms protein/1249 ml water, meeting 92% kcals needs and 100% protein needs. Free water flush increased from 120 ml to 160 ml q 4 hours. Na 151 today. Discussions with family regarding Trach/PEG. Agree with diet orders at this time. Will monitor in ICU rounds and reassessing every Sunday and Sunday.
[2022-05-16 11:53] LABS: Glucose Point of Care 145 mg/dl (65-105)
--- NOTE | 2022-05-16 12:41 | WPDINTPN ---
Progress Note: A&P Assessment and Plan (1) Septic shock: Code(s): A41.9 - Sepsis, unspecified organism; R65.21 - Severe sepsis with septic shock Status: Acute Assessment and Plan: Septic shock secondary to Haemophilus influenzae bacteremia and pneumonia Off Levophed, since 05/03/2022 morning Conservative IV fluid strategy in light of severe respiratory failure -05/03 repeat blood culture are negative till now 05/08: CT of chest abdomen pelvis: Adynamic ileus a sigmoid colon stricture, small pleural effusions, left inguinal hernia containing fat. 05/08: CT sinuses deviation of nasal septum, minimal mucoperiosteal thickening of the inferior left maxillary sinus. -05/07 blood cultures growing Staph epididymis / bottles, repeat blood cultures 05/09/2022 are negative x2 -05/07 sputum and urine cultures were negative Afebrile and WBC normal now Completed 10 days of cefepime on 05/07 Will continue vancomycin for 14 days - (2) Respiratory failure with hypoxia: Code(s): J96.91 - Respiratory failure, unspecified with hypoxia Status: Acute Assessment and Plan: Continue mechanical ventilation, patient was intubated of 04/27/2022 He is currently on 35 % FiO2 and 10 of PEEP. I have decrease PEEP to 8 CT scan did not suggest any pulmonary edema but suggest consolidation from his pneumonia. Chest x-ray IMPRESSION: 1. Slight interval progression in small right and [id number] left pleural effusions with associated atelectasis and/or pneumonia. 2. Cardiomegaly. Continue bronchodilators No hemoptysis at this time Sedated with Versed infusion daily sedation vacation, maintain RASS of 0--2 I performed a sedation holiday and performed a weaning trial of 5/8. Patient immediately failed with high respiratory rate in mid 30s and tidal volume close to 200 cc. (3) Atrial fibrillation: Code(s): I48.91 - Unspecified atrial fibrillation Status: Acute Assessment and Plan: Controlled ventricular rate On PO amiodarone 05/15 restarted therapeutic Lovenox as his hemoglobin has remained stable since EGD done on 05/11/2022 (4) Anemia: Code(s): D64.9 - Anemia, unspecified Status: Acute Assessment and Plan: Patient has been dropping his hemoglobin, is on full-dose Lovenox of atrial fibrillation -continue to monitor hemoglobin, may need transfusion -LDH is within normal limits, haptoglobin slightly elevated - vitamin B12 and folic acid within normal limits -05/14: stool for occult blood is positive -iron panel reflective iron deficiency anemia -continue Protonix IV q.12 hours Appreciate GI evaluation -05/11/2022 patient had an EGD: Acute gastric ulcers, gastritis and reflux esophagitis. One resolution clip to control bleeding ulcer. (5) Haemophilus influenzae septicemia: Code(s): A41.3 - Sepsis due to Hemophilus influenzae Status: Acute Assessment and Plan: See above (6) Hemoptysis: Code(s): R04.2 - Hemoptysis Status: Acute Assessment and Plan: Secondary to to pneumonia, coughing, rupture of a small blood vessel, patient was also on Coumadin which contributed -Coumadin was reversed with vitamin K and Kcentra Most recent INR 1.3 -now on therapeutic dose Lovenox (7) Pneumonia: Code(s): J18.9 - Pneumonia, unspecified organism Status: Acute Assessment and Plan: Secondary to Haemophilus influenzae See above (8) COPD (chronic obstructive pulmonary disease): Code(s): J44.9 - Chronic obstructive pulmonary disease, unspecified Status: Acute Assessment and Plan: See above (9) Biventricular CHF (congestive heart failure): Code(s): I50.82 - Biventricular heart failure Status: Acute Assessment and Plan: He has low LVEF 40%-45% and severely enlarged RV with RV diastolic dysfunction, severe pulmonary hypertension with regurgitant tricuspid valve flow. This was noted on his
[2022-05-16 17:21] LABS: Glucose Point of Care 117 mg/dl (65-105)
[2022-05-16] MEDS: LORazepam INJ (*CRX) 2 MG/ML VIAL IV PUSH ×2 (19:43→21:00)
[2022-05-16] MEDS: MORPHINE SULFATE INJ (*CRX) 10 MG/ML AMP 5 MG IV PUSH (19:43)
--- NOTE | 2022-05-16 19:54 | PC.NURSE ---
Pre-extubation medications administered per order. Pt extubated at 1950 with daughter, Irasema, at pt's bedside.
--- NOTE | 2022-05-16 19:55 | PCRCNOTE ---
pt extubated to room air.
[2022-05-16] MEDS: MORPHINE SULFATE (*CRX) 4 MG/ML INJ IV PUSH ×2 (20:29→21:00)
--- NOTE | 2022-05-16 22:24 | PC.NURSE ---
Pt at 2218 with daughter, Irasema, at bedside. Time of verified by two RNs.
--- NOTE | 2022-05-18 16:09 | PC.NURSE ---
Received phone call from [employer] stating that this patient's daughter, Irasema Martinez, had requested patient have his body donated for science. Information taken and call made to Irasema Martinez ([phone]) regarding this request. Irasema stated that she had been in contact with [employer] to donate her father's body after . Permission was given to release medical information to [facility]. Information provided by this RN earlier this afternoon. Name of provider to sign certificate given along with phone number to hospitalist office. This information and consent to release information was done in the presence of Lachelle Coleman RN.
--- NOTE | 2022-05-25 07:13 | PM.DDS ---
Discharge Summary Date and Time Date of : 05/16/22 Time of : 22:18 Provider Pronounced By: sury chun Probable Cause of Probable Cause of : resp failure, pna Summary Hospital Course: Patient is 77-year-old male who was admitted for respiratory failure and found to be septic. He had Haemophilus influenzae pneumonia. He also has history of COPD and biventricular CHF. Patient was admitted to the ICU was on the ventilator. The patient subsequently deteriorated and developed worsening respiratory failure and patient subsequently . Additional Data Confirmation of as documented by pronouncing clinician: Pupillary Reflex, Palpable Pulses, Response to Stimuli, Heart Tones and Breath Sounds Name of Provider Notified: dr reed Time Provider Notified: 22:37 Provider Requests Autopsy: No Family Requests Autopsy: No Instrument Repair Supervisor Notified: Yes Date [facility] Notified of : 05/16/22 Time [facility] Notified of : 22:45
--- NOTE | 2022-05-31 15:49 | PC.NURSE ---
Patient remains in [facility]. Spoke with Sha from the [facility] office regarding status update with the [employer] and patient's family. Sha reports that [employer] is no longer able to use the patient's remains given the time that has elapsed since declaration and the inability to have documents consenting to the donation completed by the patient's family. Sha stated that he has been unable to reach the daughter, Irasema, since his conversation with [employer]. Names and phone numbers for other relatives that were documented in the medical record were provided to Sha as other potential contacts. At this time, it is planned for the Fabrication Operator's Office to picking machine operator helper the patient's remains on Sunday. Marketing Sales Representative, CNO, [employer] also notified.
== END 2022-05-16 22:18 | disposition expired | DRG 870 ==
LOC: ANHED 13:15 → ANHICU 13:24
PROVIDERS: Family Medicine; Internal Medicine; Internal Medicine Critical Care Medicine; Internal Medicine Gastroenterology; Nurse Practitioner; Admitting Provider Internal Medicine; Emergency Provider Emergency Medicine; Visit Provider Chiropractor
PROC: 0DJ08ZZ Inspection of Upper Intestinal Tract, Via Natural or Artificial Opening Endoscopic (ICD-10-PCS; CPT 43235; principal; 2022-05-11 14:00)
DX: A41.3 Sepsis due to Hemophilus influenzae (principal); J96.01 Acute respiratory failure with hypoxia; R65.21 Severe sepsis with septic shock; K25.0 Acute gastric ulcer with hemorrhage; J14 Pneumonia due to Hemophilus influenzae; R04.2 Hemoptysis; J44.0 Chronic obstructive pulmonary disease with (acute) lower respiratory infection; J44.1 Chronic obstructive pulmonary disease with (acute) exacerbation; N17.9 Acute kidney failure, unspecified; E87.0 Hyperosmolality and hypernatremia; I50.82 Biventricular heart failure; I07.1 Rheumatic tricuspid insufficiency; I11.0 Hypertensive heart disease with heart failure; I27.20 Pulmonary hypertension, unspecified; K21.00 Gastro-esophageal reflux disease with esophagitis, without bleeding; K29.70 Gastritis, unspecified, without bleeding; Z66 Do not resuscitate; I48.91 Unspecified atrial fibrillation; E78.5 Hyperlipidemia, unspecified; G62.9 Polyneuropathy, unspecified; D64.9 Anemia, unspecified; R73.9 Hyperglycemia, unspecified; R14.0 Abdominal distension (gaseous); K59.00 Constipation, unspecified; Z20.822 Contact with and (suspected) exposure to COVID-19; Z79.01 Long term (current) use of anticoagulants; Z79.899 Other long term (current) drug therapy; Z98.49 Cataract extraction status, unspecified eye; Z99.81 Dependence on supplemental oxygen
CPT/HCPCS: 36415; 36430; 36569; 36600; 70486; 71045; 71250; 71275; 74019; 74176; 80048; 80053; 80202; 81001; 82274; 82375; 82550; 82565; 82607; 82746; 82805; 82948; 83010; 83036; 83050; 83540; 83550; 83605; 83615; 83690; 83735; 83874; 83880; 84100; 84484; 85025; 85027; 85055; 85380; 85384; 85610; 85730; 86038; 86140; 86850; 86900; 86901; 86923; 87040; 87070; 87077; 87081; 87086; 87147; 87181; 87185; 87186; 87205; 87449; 87502; 87899; 93005; 93306; 93308; 93970; 94002; 94003; 94640; 96365; 96375; 99291; A9270; C1751; C9113; C9803; J0171; J0330; J0692; J0696; J1650; J1815; J1940; J1956; J2060; J2250; J2270; J2405; J2765; J2920; J2930; J3010; J3370; J3480; J7030; J7050; J7060; J7120; J7168; P9016; P9045; P9047; Q9957; Q9967; U0003; U0005